=== PATIENT | female | born 1935 | race Caucasian/White ===

== ENCOUNTER 2017-06-27 08:24 | Inpatient (IN) | payer OTHER ==
[~2017-06-27] VITALS: Ht 170.2 cm; Wt 54.5 kg
[~2017-06-27 08:24] MED LIST: ALBUAER19 INH; ASPEC81 PO; BUDE0.5S INH; BUSP-8 PO; DILT1CAP PO; DOCU-94 PO; IPRASOL4 INH; LNX25 PO; PRED10TA PO; PRFINS INH; TYL325X PO; VNCS125 PO; WARF4TAB43 PO
[2017-06-27] MEDS ORDERED: SODIUM CHLORIDE 0.9% 1000ML 1,000 ML IV STA (09:05)
--- NOTE | 2017-06-27 09:07 | EMERGENCY ROOM VISIT NOTE ---
ED Visit Note First contact with patient: 08:38 I have seen and examined this patient with Sondra Tavera and generally agree with the treatment plan as discussed.
[2017-06-27] MEDS ORDERED: MoRPHine SULFATE 4 MG/ML 1 ML CARP\\VIAL IV STA (09:20)
[2017-06-27] MEDS ORDERED: ONDANSETRON INJ 2 MG/ML 2 ML VIAL IV STA (09:20)
[2017-06-27] MEDS ORDERED: DILT240C57 PO (09:32)
[2017-06-27] MEDS ORDERED: ACET-1346 PO (09:32)
[2017-06-27] MEDS ORDERED: VNTHFA/IN INH (09:32)
[2017-06-27] MEDS ORDERED: MISCCAP80 PO (09:32)
[2017-06-27] MEDS ORDERED: LNX125 PO (09:32)
--- NOTE | 2017-06-27 09:47 | DIAGNOSTIC IMAGING REPORT ---
CHEST ONE VIEW PORTABLE CLINICAL HISTORY: RUQ PAIN pain. Nausea. COMPARISON STUDY: 07/24/2014 FINDINGS: Slight increase in cardiac size. Increased impact 1 markings both lung bases. Upper lungs are clear. Mild Baseline emphysematous changes present. IMPRESSION: Minimal bibasilar atelectatic and/or developing infiltrative change. Mild emphysematous change. The above report was generated using voice recognition software. It may contain grammatical, syntax or spelling errors. Electronically signed by: Otto Laboy M.D. 06/27/2017 9:46 AM Dictated Date/Time: 06/27/2017 9:45 AM
[2017-06-27 10:00] LABS: BASO % 0.2 %; BASO ABS # 0.03 K/uL (0-0.2); EOS % 1.2 %; EOS ABS # 0.19 K/uL (0-0.5); HEMATOCRIT 42.3 % (37-47); IG# 0.04 K/uL (0.00-0.02); LYMPH % 8.3 %; LYMPH ABS # 1.36 K/uL (1.2-3.4); MEAN CELL VOLUME 89.1 fL (80-100); MEAN CORPUSCULAR HEMOGLOBIN 29.5 pg (25-34); MEAN CORPUSCULAR HGB CONC 33.1 g/dl (32-36); MEAN PLATELET VOLUME 10.2 fL (7.4-10.4); MONO ABS # 1.31 K/uL (0.11-0.59); NEUT % 82.1 %; NEUT ABS # 13.38 K/uL (1.4-6.5); PLATELET COUNT 289 K/uL (130-400); RED CELL DISTRIBUTION WIDTH CV 15.6 % (11.5-14.5); RED CELL DISTRIBUTION WIDTH SD 51.4 fL (36.4-46.3); WHITE BLOOD COUNT 16.31 K/uL (4.8-10.8)
[2017-06-27 10:02] LABS: ALBUMIN 2.8 gm/dl (3.4-5.0); ALKALINE PHOSPHATASE 72 U/L (45-117); ALT/SGPT 14 U/L (12-78); BLOOD UREA NITROGEN 18 mg/dl (7-18); CALCIUM 7.8 mg/dl (8.5-10.1); CARBON DIOXIDE 25 mmol/L (21-32); CREATININE 0.89 mg/dl (0.60-1.20); GLUCOSE 81 mg/dl (70-99); LIPASE 133 U/L (73-393); SODIUM 140 mmol/L (136-145); TOTAL PROTEIN 7.1 gm/dl (6.4-8.2)
[2017-06-27 10:20] LABS: POTASSIUM 4.1 mmol/L (3.5-5.1)
[2017-06-27 10:26] LABS: INR 4.5 (0.9-1.1)
[2017-06-27 10:27] LABS: PTT PATIENT 55.6 SECONDS (21.0-31.0)
--- NOTE | 2017-06-27 10:36 | DIAGNOSTIC IMAGING REPORT ---
GALLBLADDER-ABD LIMITED HISTORY: 82 years-old Female RUQ PAIN X 2 DAYS acute right upper quadrant abdominal pain for 2 days. COMPARISON: CT abdomen and pelvis 07/21/2014 TECHNIQUE: Multiple real-time sonographic images of the abdominal right upper quadrant were obtained assessing grayscale appearance and color flow FINDINGS: The imaged pancreas is unremarkable with pancreatic duct measuring the upper limits of normal, 3 mm. Common bile duct is mildly dilated, 1.0 cm. Multiple shadowing gallstones are seen within the mid gallbladder lumen and gallbladder neck which are nonmobile. There is likely associated gallbladder sludge. The gallbladder wall is also mildly thickened, 4 mm. No pericholecystic fluid. 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 No obstructing stone or lesion of the common bile duct. No intrahepatic biliary ductal dilation identified. Several hepatic cysts are redemonstrated, largest of which measures up to 8.1 cm. Several hepatic cysts are septated. The imaged right kidney is unremarkable without hydronephrosis. IMPRESSION: 1. Cholelithiasis with gallbladder wall thickening and reported right upper quadrant tenderness is noted without pericholecystic fluid. Correlate clinically to exclude acute cholecystitis. 2. Mild dilation of the common bile duct, 1.0 cm without obstructing biliary stone or lesion identified. 3. Redemonstration of multiple hepatic cysts. The above report was generated using voice recognition software. It may contain grammatical, syntax or spelling errors. Electronically signed by: Gutierrez Quintana M.D. 06/27/2017 10:34 AM Dictated Date/Time: 06/27/2017 10:31 AM
--- NOTE | 2017-06-27 10:42 | EMERGENCY ROOM VISIT NOTE ---
History First contact with patient: 08:38 Chief Complaint: ABDOMINAL PAIN Stated Complaint: GALLBLADDER PAIN Nursing Triage Summary: patient c/o right abdominal pain since sunday evening, states "we ate all kinds of fried food and it got real bad, went to [facility] and they did some tests so I could go to [facility] right away or follow up, I was feeling a little better there so I waited but at about 0300 today it got real bad again." History of Present Illness Patient is an 82-year-old female with past medical history significant for COPD and A. fib on chronic Coumadin, who presents emergency department accompanied by her for evaluation of right upper quadrant abdominal pain 2 days. Patient reports that she was diagnosed with gallstones about a year ago after having some episodic right upper quadrant pain. She was seen by general surgery and at that point was not felt to be a surgical candidate. With dietary changes her symptoms resolved until just recently. She states that on Sunday evening, 2 days ago, she had a lot of fried foods for dinner including Thai fries, onion rings and wings. That night she was awoken with sharp, stabbing right upper quadrant pain. She tried getting up and moving around, but the pain persisted. She was seen at [facility] in the Emergency Department at 0700 yesterday and underwent a thorough workup which included laboratory studies. She was treated with IV Toradol and Zofran, and given 1 g of ceftriaxone IV for a presumed cholecystitis. They did not have ultrasound capabilities, and discussed with the patient either close follow-up with her primary care provider, or transfer to a facility that could ultrasound including [facility] or [facility]. Patient reports that she was feeling better at that time, and elected to go home to follow-up with her primary care provider. Patient states that she was feeling better yesterday, and tried to eat a more bland diet, but the pain returned at 0300 this morning. She again notes a sharp right upper quadrant pain that does not radiate. She states that when she lays down and holds her side she feels better. She rates her discomfort a 2/10 presently, it is worse when she sits up or takes a deep breath. She denies feeling nauseous, she has not vomited. No diarrhea. No fever or chills. She denies any chest pain palpitations or shortness of breath. She has not documented any fevers. Review of Systems Review of systems as per HPI. All other systems reviewed were negative. 10 systems reviewed. Past Medical/Surgical History Medical Problems: (1) Atrial Fibrillation (2) Bronchitis (3) Chronic obstructive lung disease (4) Heart disease (5) Leukocytosis (6) Osteoporosis Nos (7) Pulmonary emphysema Surgical Problems: (1) History of total hip arthroplasty (2) Hysterectomy Electronic medical records are reviewed and summarized as above/below. See Problem List. Social History Smoking Status: Former Smoker Alcohol Use: none Drug Use: none Marital Status: Housing Status: lives with significant other Occupation Status: retired Current/Historical Medications Scheduled Buspirone Hcl (Buspirone Hcl), 10 MG PO BID Digoxin (Digoxin), 0.125 MG PO DAILY Diltiazem Hcl Coated Beads (Cardizem Cd), 240 MG PO DAILY Docusate Sodium (Colace), 100 MG PO DAILY Formoterol Fumarate (Perforomist), 2 ML INH BID Probiotic Product (Probiotic), 1 CAP PO DAILY Warfarin Sodium (Warfarin Sodium), 2 MG PO DAILY Scheduled PRN Acetaminophen (Acetaminophen), 650 MG PO Q4 PRN for Pain or Fever Albuterol Hfa (Ventolin Hfa), 2-4 PUFFS INH Q6H PRN for SOB/Wheezing Ipratropium-Albuterol (Duoneb), 1 TREATMENT INH Q4H PRN for SOB/Wheezing Physical Exam Vital Signs Date Time Temp Pulse Resp B/P (MAP) Pulse Ox O2 Delivery O2 Flow Rate FiO2 06/27/17 12:50 82 16 97/60 98 Room Air 06/27/17 12:13 85 06/27/17 11:41 97 Room Air 06/27/17 11:14 86 16 06/27/17 10:25 100 18 109/66 97 Room Air 06/27/17 09:49 100 20 116/65 96 Room Air 06/27/17 09:08 99 06/27/17 08:30 36.8 105 20 112/58 97 Room Air Physical Exam CONSTITUTIONAL: Patient is a pleasant, well-appearing 82-year-old female who is awake and alert and in no acute distress. EYES: Pupils equal, round, reactive to light and accommodation. EOMs intact without nystagmus. Sclera are anicteric. ENT: Tympanic membranes intact, with normal landmarks. External canals are clear. Oral and nasopharynx are clear. Mucous membranes are moist, no lesions , tongue and gums appear normal. CARDIOVASCULAR: Irregular rate and rhythm. No JVD. Peripheral pulses easily palpable. RESPIRATORY: Breath sounds equal and clear to auscultation without wheezes, rales, or rhonchi heard. Full and equal chest expansion without accessory muscle use or retractions. ABDOMEN: Bowel sounds are present. Abdomen is soft, nondistended, markedly tender in the right upper quadrant without guarding. Positive Parham sign. INTEGUMENTARY: No lesions or rash, normal skin turgor. LYMPH: No lymphadenopathy. Medical Decision & Procedures ER Provider Diagnostic Interpretation: CHEST ONE VIEW PORTABLE CLINICAL HISTORY: RUQ PAIN pain. Nausea. COMPARISON STUDY: 07/24/2014 FINDINGS: Slight increase in cardiac size. Increased impact 1 markings both lung bases. Upper lungs are clear. Mild Baseline emphysematous changes present. IMPRESSION: Minimal bibasilar atelectatic and/or developing infiltrative change. Mild emphysematous change. GALLBLADDER-ABD LIMITED HISTORY: 82 years-old Female RUQ PAIN X 2 DAYS acute right upper quadrant abdominal pain for 2 days. COMPARISON: CT abdomen and pelvis 07/21/2014 TECHNIQUE: Multiple real-time sonographic images of the abdominal right upper quadrant were obtained assessing grayscale appearance and color flow FINDINGS: The imaged pancreas is unremarkable with pancreatic duct measuring the upper limits of normal, 3 mm. Common bile duct is mildly dilated, 1.0 cm. Multiple shadowing gallstones are seen within the mid gallbladder lumen and gallbladder neck which are nonmobile. There is likely associated gallbladder sludge. The gallbladder wall is also mildly thickened, 4 mm. No pericholecystic fluid. 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 No obstructing stone or lesion of the common bile duct. No intrahepatic biliary ductal dilation identified. Several hepatic cysts are redemonstrated, largest of which measures up to 8.1 cm. Several hepatic cysts are septated. The imaged right kidney is unremarkable without hydronephrosis. IMPRESSION: 1. Cholelithiasis with gallbladder wall thickening and reported right upper quadrant tenderness is noted without pericholecystic fluid. Correlate clinically to exclude acute cholecystitis. 2. Mild dilation of the common bile duct, 1.0 cm without obstructing biliary stone or lesion identified. 3. Redemonstration of multiple hepatic cysts. Laboratory Results 5/9/18 09:33 Red Blood Count 4.75, Mean Corpuscular Volume 89.1, Mean Corpuscular Hemoglobin 29.5, Mean Corpuscular Hemoglobin Concent 33.1, Mean Platelet Volume 10.2, Neutrophils (%) (Auto) 82.1, Lymphocytes (%) (Auto) 8.3, Monocytes (%) (Auto) 8.0, Eosinophils (%) (Auto) 1.2, Basophils (%) (Auto) 0.2, Neutrophils # (Auto) 13.38, Lymphocytes # (Auto) 1.36, Monocytes # (Auto) 1.31, Eosinophils # (Auto) 0.19, Basophils # (Auto) 0.03 06/27/17 09:00 06/27/17 09:47 Test 06/27/17 09:00 06/27/17 09:33 06/27/17 09:47 Anion Gap 4.0 mmol/L (3-11) Est Creatinine Clear Calc Drug Dose 42.7 ml/min Estimated GFR () 70.4 Estimated GFR (Non- 60.8 BUN/Creatinine Ratio 20.3 (10-20) Calcium Level 7.8 mg/dl (8.5-10.1) Total Bilirubin 0.5 mg/dl (0.2-1) Alanine Aminotransferase (ALT/SGPT) 14 U/L (12-78) Alkaline Phosphatase 72 U/L (45-117) Creatine Kinase MB 1.0 ng/ml (0.5-3.6) Creatine Kinase MB Ratio (0-3.0) Troponin I < 0.015 ng/ml (0-0.045) Total Protein 7.1 gm/dl (6.4-8.2) Albumin 2.8 gm/dl (3.4-5.0) Globulin 4.3 gm/dl (2.5-4.0) Albumin/Globulin Ratio 0.7 (0.9-2) Amylase Level 37 U/L (25-115) Lipase 133 U/L (73-393) White Blood Count 16.31 K/uL (4.8-10.8) Red Blood Count 4.75 M/uL (4.2-5.4) Hemoglobin 14.0 g/dL (12.0-16.0) Hematocrit 42.3 % (37-47) Mean Corpuscular Volume 89.1 fL (80-100) Mean Corpuscular Hemoglobin 29.5 pg (25-34) Mean Corpuscular Hemoglobin Concent 33.1 g/dl (32-36) Platelet Count 289 K/uL (130-400) Mean Platelet Volume 10.2 fL (7.4-10.4) Neutrophils (%) (Auto) 82.1 % Lymphocytes (%) (Auto) 8.3 % Monocytes (%) (Auto) 8.0 % Eosinophils (%) (Auto) 1.2 % Basophils (%) (Auto) 0.2 % Neutrophils # (Auto) 13.38 K/uL (1.4-6.5) Lymphocytes # (Auto) 1.36 K/uL (1.2-3.4) Monocytes # (Auto) 1.31 K/uL (0.11-0.59) Eosinophils # (Auto) 0.19 K/uL (0-0.5) Basophils # (Auto) 0.03 K/uL (0-0.2) RDW Standard Deviation 51.4 fL (36.4-46.3) RDW Coefficient of Variation 15.6 % (11.5-14.5) Immature Granulocyte % (Auto) 0.2 % Immature Granulocyte # (Auto) 0.04 K/uL (0.00-0.02) Prothrombin Time 45.9 SECONDS (9.0-12.0) Prothromb Time International Ratio 4.5 (0.9-1.1) Activated Partial Thromboplast Time 55.6 SECONDS (21.0-31.0) Partial Thromboplastin Ratio 2.1 Digoxin Level 0.9 ng/ml (0.8-2.0) Aspartate Amino Transf (AST/SGOT) 13 U/L (15-37) Total Creatine Kinase 63 U/L (26-192) Medications Administered Medications (Trade) Dose Ordered Sig/Elijah Route Start Time Stop Time Status Last Admin Dose Admin Sodium Chloride 1,000 ml @ 250 mls/hr Q4H STAT IV 06/27/17 09:05 06/27/17 13:04 06/27/17 09:46 250 MLS/HR Ondansetron HCl (Zofran Inj) 4 mg NOW STAT IV 06/27/17 09:20 06/27/17 09:21 DC 06/27/17 09:44 4 MG Morphine Sulfate (MoRPHine SULFATE INJ) 4 mg NOW STAT IV 06/27/17 09:20 06/27/17 09:21 DC 06/27/17 09:46 4 MG Phytonadione 2.5 mg/Sodium Chloride 50.25 ml @ 100.5 mls/ hr ONE ONCE IV 06/27/17 12:40 06/27/17 13:09 06/27/17 12:50 100.5 MLS/HR ECG Per My Interpretation Indication: abdominal pain Rate (beats per minute): 102 Rhythm: atrial fibrillation Findings: no acute ischemic change, no ectopy Change: no significant change ED Course The patient was seen and assessed as above. Her old records were reviewed. IV lock was initiated and laboratory studies were collected. The patient was made n.p.o., and was hydrated with normal saline solution. She was medicated with morphine 4 mg IV and Zofran 4 mg IV for discomfort prior to ultrasound. Laboratory studies were collected including CBC with differential, PT/INR, CMP, amylase, lipase and cardiac enzymes. Portable chest x-ray and EKG were obtained and are as noted above. Ultrasound of the right upper quadrant was performed. The patient did have a copy of her laboratory studies from [facility] from yesterday which are on the chart and were reviewed. History and presentation were reviewed with attending physician who also independently evaluated the patient. Patient's laboratory studies today note a leukocytosis of 16,300, with left shift. H&H is normal. Platelet count is within normal limits. INR is supratherapeutic at 4.5. Electrolytes are unremarkable. Renal function is normal. Transaminases and pancreatic enzymes are not elevated. Cardiac markers are not indicative of acute ischemia. Patient did not provide a urine sample while in the emergency department. Gallbladder ultrasound noted cholelithiasis with gallbladder wall thickening and positive sonographic Parham sign. There is no pericholecystic fluid noted. Mild dilatation of the common bile duct at 1 cm without obstructing biliary stone or lesion was identified. All laboratory and diagnostic imaging studies were reviewed with the patient and her and discussed with attending physician. I did review the patient with general surgery staff on-call, Ale Lerner PA-C, who asked that the admit the patient to the [facility] service due to the elevated INR and other comorbidities for reversal of the Coumadin and medical clearance. I did discuss the patient with Dr. Castellanos, who evaluated the patient in the emergency department. Patient was admitted to the [facility] service pending surgical evaluation. The patient remained stable and comfortable while in the emergency department. She did not require any additional medications for pain or nausea. Differential diagnoses entertained included acute cholecystitis, cholelithiasis , biliary colic, ascending cholangitis, pancreatitis, bowel obstruction, perforation, mass or malignancy, among others. Medical Decision See ED Course. Medication Reconcilliation Current Medication List: was personally reviewed by me Blood Pressure Screening Patient's blood pressure: Normal blood pressure Blood pressure disposition: Did not require urgent referral Impression Primary Impression: Acute cholecystitis Additional Impression: Supratherapeutic INR Departure Information Dispostion Admitted as an inpatient Referrals Durga Gandhi M.D.(NIRAJ) (PCP) Patient Instructions My [facility] Problem Qualifiers
[2017-06-27 11:41] VITALS: O2SAT 97; Ht 170.2 cm; Wt 54.5 kg
[2017-06-27] MEDS ORDERED: PIPERACILL/TAZOBAC CONSULT ACTIVE PRN (12:15)
[2017-06-27] MEDS ORDERED: ONDANSETRON INJ 2 MG/ML 2 ML VIAL IV PRN (12:15)
[2017-06-27] MEDS ORDERED: NITROGLYCERIN 0.4 MG SL PER TAB CHARGE SL PRN (12:15)
[2017-06-27] MEDS ORDERED: PHYTONADIONE INJ 2.5 MG in SODIUM CHLORIDE 0.9% 50ML 50 ML IV ONE (12:40)
[2017-06-27] MEDS ORDERED: PIPERACILL/TAZOBAC IV 3.375 GM in D5W 100 ML IV ONE (12:45)
--- NOTE | 2017-06-27 13:33 | History and Physical ---
History & Physical Date & Time of Service: June 27, 2017 at 13:31 Chief Complaint: Gallbladder Pain Primary Care Physician: Durga Gandhi M.D.(NIRAJ) History of Present Illness Source: patient This is a 82-year-old female with complex past medical history of severe emphysema, chronic A. fib on Coumadin, valvular heart disease with moderate aortic stenosis, moderate mitral regurgitation, mild mitral stenosis Patient presents today with complaint of right upper quadrant pain Started last night, associated with nausea no vomiting No fever or chills Lab work shows leukocytosis of white count 16 Patient is on Coumadin INR more than 4 Gallbladder ultrasound shows cholelithiasis with gallbladder wall thickening without pericholecystic fluid Patient admitted to telemetry Surgery consult requested Past Medical/Surgical History Medical Problems: (1) Atrial Fibrillation (2) Bronchitis (3) Chronic obstructive lung disease (4) Heart disease (5) Leukocytosis (6) Osteoporosis Nos (7) Pulmonary emphysema Surgical Problems: (1) History of total hip arthroplasty (2) Hysterectomy Social History Smoking Status: Former Smoker Drug Use: none Marital Status: Housing status: lives with family Occupational Status: retired Immunizations History of Influenza Vaccine: Yes Influenza Vaccine Date: Nov 05, 2008 History of Tetanus Vaccine?: No History of Pneumococcal: Yes History of Hepatitis B Vaccine: No Multi-Drug Resistant Organisms History of MDRO: No Allergies Coded Allergies: No Known Allergies (Verified , 06/27/17) Home Medications Scheduled Buspirone Hcl (Buspirone Hcl), 10 MG PO BID Digoxin (Digoxin), 0.125 MG PO DAILY Diltiazem Hcl Coated Beads (Cardizem Cd), 240 MG PO DAILY Docusate Sodium (Colace), 100 MG PO DAILY Formoterol Fumarate (Perforomist), 2 ML INH BID Probiotic Product (Probiotic), 1 CAP PO DAILY Warfarin Sodium (Warfarin Sodium), 2 MG PO DAILY Scheduled PRN Acetaminophen (Acetaminophen), 650 MG PO Q4 PRN for Pain or Fever Albuterol Hfa (Ventolin Hfa), 2-4 PUFFS INH Q6H PRN for SOB/Wheezing Ipratropium-Albuterol (Duoneb), 1 TREATMENT INH Q4H PRN for SOB/Wheezing Review of Systems Constitutional: + weakness, + fatigue Respiratory: No cough, No sputum, No wheezing, No shortness of breath, No dyspnea on exertion, No dyspnea at rest, No hemoptysis, No problem reported Cardiovascular: No chest pain, No orthopnea, No PND, No edema, No claudication , No palpitations, No problem reported Abdomen: + pain (Right upper quadrant pain), + nausea, + vomiting, + diarrhea ( One episode of diarrhea) Musculoskeletal: No joint pain, No muscle pain, No swelling, No calf pain, No problem reported Neurologic: No memory loss, No paralysis, No weakness, No numbness/tingling, No vertigo, No balance problems, No problem reported Physical Exam Vital Signs Date Time Temp Pulse Resp B/P (MAP) Pulse Ox O2 Delivery O2 Flow Rate FiO2 06/27/17 12:50 82 16 97/60 98 Room Air 06/27/17 12:13 85 06/27/17 11:41 97 Room Air 06/27/17 11:14 86 16 06/27/17 10:25 100 18 109/66 97 Room Air 06/27/17 09:49 100 20 116/65 96 Room Air 06/27/17 09:08 99 06/27/17 08:30 36.8 105 20 112/58 97 Room Air General Appearance: no apparent distress Head: normocephalic, atraumatic Eyes: normal inspection, PERRL, EOMI, sclerae normal Neck: thyroid normal, no JVD, no carotid bruits, trachea midline Respiratory/Chest: chest non-tender, lungs clear, normal breath sounds, no respiratory distress Cardiovascular: + irregularly irregular Abdomen/GI: soft, + tenderness (Right upper quadrant tenderness) Extremities/Musculoskelatal: no calf tenderness, normal capillary refill, no pedal edema Neurologic/Psych: no motor/sensory deficits, alert, normal reflexes, oriented x 3 Diagnostics Laboratory Results Results Past 24 Hours Test 06/27/17 08:40 06/27/17 09:00 06/27/17 09:33 06/27/17 09:47 Range/Units Creatine Kinase MB Ratio 0-3.0 Sodium Level 140 136-145 mmol/L Potassium Level 4.1 3.5-5.1 mmol/L Chloride Level 111 98-107 mmol/L Carbon Dioxide Level 25 21-32 mmol/L Anion Gap 4.0 3-11 mmol/L Blood Urea Nitrogen 18 7-18 mg/dl Creatinine 0.89 0.60-1.20 mg/dl Est Creatinine Clear Calc Drug Dose 42.7 ml/min Estimated GFR () 70.4 Estimated GFR (Non- 60.8 BUN/Creatinine Ratio 20.3 10-20 Random Glucose 81 70-99 mg/dl Calcium Level 7.8 8.5-10.1 mg/dl Total Bilirubin 0.5 0.2-1 mg/dl Aspartate Amino Transf (AST/SGOT) 13 15-37 U/L Alanine Aminotransferase (ALT/SGPT) 14 12-78 U/L Alkaline Phosphatase 72 45-117 U/L Total Creatine Kinase 63 26-192 U/L Creatine Kinase MB 1.0 0.5-3.6 ng/ml Troponin I < 0.015 0-0.045 ng/ml Total Protein 7.1 6.4-8.2 gm/dl Albumin 2.8 3.4-5.0 gm/dl Globulin 4.3 2.5-4.0 gm/dl Albumin/Globulin Ratio 0.7 0.9-2 Amylase Level 37 25-115 U/L Lipase 133 73-393 U/L White Blood Count 16.31 4.8-10.8 K/uL Red Blood Count 4.75 4.2-5.4 M/uL Hemoglobin 14.0 12.0-16.0 g/dL Hematocrit 42.3 37-47 % Mean Corpuscular Volume 89.1 80-100 fL Mean Corpuscular Hemoglobin 29.5 25-34 pg Mean Corpuscular Hemoglobin Concent 33.1 32-36 g/dl Platelet Count 289 130-400 K/uL Mean Platelet Volume 10.2 7.4-10.4 fL Neutrophils (%) (Auto) 82.1 % Lymphocytes (%) (Auto) 8.3 % Monocytes (%) (Auto) 8.0 % Eosinophils (%) (Auto) 1.2 % Basophils (%) (Auto) 0.2 % Neutrophils # (Auto) 13.38 1.4-6.5 K/uL Lymphocytes # (Auto) 1.36 1.2-3.4 K/uL Monocytes # (Auto) 1.31 0.11-0.59 K/uL Eosinophils # (Auto) 0.19 0-0.5 K/uL Basophils # (Auto) 0.03 0-0.2 K/uL RDW Standard Deviation 51.4 36.4-46.3 fL RDW Coefficient of Variation 15.6 11.5-14.5 % Immature Granulocyte % (Auto) 0.2 % Immature Granulocyte # (Auto) 0.04 0.00-0.02 K/uL Prothrombin Time 45.9 9.0-12.0 SECONDS Prothromb Time International Ratio 4.5 0.9-1.1 Activated Partial Thromboplast Time 55.6 21.0-31.0 SECONDS Partial Thromboplastin Ratio 2.1 Digoxin Level 0.9 0.8-2.0 ng/ml Microbiology Results 06/27/17 Blood Culture, Received Pending 06/27/17 Blood Culture, Received Pending Diagnostic Radiology GALL BLADDER ULTRASOUND : IMPRESSION: 1. Cholelithiasis with gallbladder wall thickening and reported right upper quadrant tenderness is noted without pericholecystic fluid. Correlate clinically to exclude acute cholecystitis. 2. Mild dilation of the common bile duct, 1.0 cm without obstructing biliary stone or lesion identified. 3. Re demonstration of multiple hepatic cysts. EKG Atrial fibrillation with rapid ventricular response Abnormal ECG When compared with ECG of 12-AUG-2012 20:18, Nonspecific T wave abnormality, improved in Inferior leads Impression Assessment and Plan ACUTE CHOLECYSTITIS Presents with right upper quadrant pain, gallbladder ultrasound suggestive of acute cholecystitis Leukocytosis of 16 Order for blood culture Empiric antibiotic with IV Zosyn Surgery consult requested Patient will need laparoscopic cholecystectomy Due to underlying multiple cardiac/pulmonary comorbidities patient is a high cardiac risk-advanced COPD/valvular heart disease/A. fib VALVULAR HEART DISEASE Echo on October 19, 2016 showed contrast concentric left ventricle hypertrophy, qualitative LV function more than 70% severe left atrial enlargement and present Moderate aortic valve stenosis , mild aortic valve regurgitation There is severe mitral annular calcification ,mild mitral regurgitation is present There is no evidence of pulmonary hypertension Cardiac stress test on February 2017: Negative for stress-induced ischemia Repeat echo ordered Cardiology consult requested for preop evaluation of cardiac risk stratification Case discussed with on-call cardiology ADVANCED COPD : Follows with pulmonology at [facility] Recent pulmonology note on 04/10/2017 shows: Severe emphysema with moderate airflow obstruction: History of heavy smoking quit in 2014 Severe smoking related COPD with history of frequent exacerbation/GOLD class D History of hypercapnic respiratory failure with Pseudomonas pneumonitis requiring 24 hour ventilatory support on 07/10/2014 ([facility]) No audible wheeze noted Patient will be continued with as needed neb treatment Outpatient inhalers Spiriva, albuterol/steroid inhalers will be continued Patient remains high risk for postop pulmonary and cardiac complications; decompensation of CHF, tachyarrhythmia, acute respiratory failure CHRONIC AFIB : Remains rate controlled On digoxin and calcium channel leonor Not on beta-leonor secondary to underlying severe COPD On chronic anticoagulation on Coumadin Anticoagulation is kept on hold for expected surgical procedure COAGULOPATHY : INR elevated more than 4 Given vitamin K Repeat INR 2.4 Continue to hold Coumadin for surgical procedure/laparoscopic cholecystectomy LEUKOCYTOSIS : No evidence of sepsis Due to acute cholecystitis Blood culture ordered Empiric antibiotic with IV Zosyn Follow daily labs FULL CODE DVT PROPHYLAXIS INR elevated DISPOSITION : Expected to be discharged home when medically stable Will need PT OT evaluation prior to this Social service consult for discharge planning Level of Care Telemetry Advanced Directives Existing Living Will: No Existing Power of Flagger: No Resuscitation Status FULL RESUSCITATION VTE Prophylaxis Risk Level: Moderate
[2017-06-27] MEDS ORDERED: METOPROLOL TARTRATE 1 MG/ML VIAL IV PRN (13:45)
[2017-06-27] MEDS ORDERED: ALBUT/IPRATROP 3MG/0.5MG NEB 3 ML VIAL INH PRN (13:45)
[2017-06-27] MEDS ORDERED: ALBUTEROL HFA 8 GM INHALER INH PRN ×2 (13:45→16:45)
[2017-06-27 14:45] VITALS: BP 106/56; PULSE 87; TEMP 36.9; O2SAT 94
[2017-06-27] MEDS ORDERED: LACTATED RINGER'S 1000ML 1,000 ML IV SCH (15:00)
[2017-06-27 16:12] LABS: INR 2.6 (0.9-1.1)
[2017-06-27] MEDS ORDERED: MoRPHine SULFATE 4 MG/ML 1 ML CARP\\VIAL IV PRN (16:30)
[2017-06-27] MEDS ORDERED: MoRPHine SULFATE 2 MG/ML CARP IV PRN (16:30)
[2017-06-27 16:41] VITALS: BP 105/54; PULSE 84; TEMP 36.7; O2SAT 92
[2017-06-27] MEDS ORDERED: LEVALBUTEROL/IPRATROPIUM NEB INH PRN (16:45)
[2017-06-27] MEDS ORDERED: IPRATROPIUM BROMIDE NEB SOLN 0.02% 2.5 ML VIAL INH PRN (17:00)
[2017-06-27] MEDS ORDERED: LEVALBUTEROL 1.25MG/0.5ML NEB INH PRN (17:00)
--- NOTE | 2017-06-27 18:11 | Surgery Consultation ---
Consultation Date of Consultation: June 27, 2017. Attending Physician: Antoine Lamb MD Reason for Consultation: Cholelithiasis, cholecystitis History of Present Illness Regla is a pleasant 82-year-old female who presented to the emergency room complaint of right abdominal pain since Sunday evening. Patient reports that she was diagnosed gallstones about a year ago after having intermittent right upper quadrant abdominal pain. She was seen by general surgery but felt she was not a surgical candidate at that time. She has not had troubles with the right upper quadrant pain until 2 days ago. She had a lot of fried food including Scottish fries, onion rings, and wings. She was seen at [facility] in the emergency department and underwent a workup including laboratory studies she was treated with IV pain medications Zofran and IV antibiotics however they were night unable to do an ultrasound. She is feeling better at the time and was discharged home. She states that she was feeling better but then the pain returned at 3:00 this morning. She again notes sharp right upper quadrant pain does not radiate anywhere else. She denies of any fevers chills nausea vomiting diarrhea constipation blood in the stools black tarry stools acholic stools. She denies of any chest pain, palpitations, shortness of breath. ER workup included labs which showed a leukocytosis of 16.31 LFTs within normal limits total bilirubin within normal limits. Gallbladder ultrasound showed cholelithiasis with gallbladder wall thickening and reported right upper quadrant tenderness without pericholecystic fluid mild dilation of the common bile duct at 1.0 cm without obstructing biliary stone or lesion identified. Past Medical/Surgical History Medical Problems: (1) Acute cholecystitis Status: Acute (2) Atrial Fibrillation Status: Chronic (3) Chronic obstructive lung disease Status: Chronic (4) Heart disease Status: Chronic (5) Osteoporosis Nos Status: Chronic (6) Pulmonary emphysema Status: Chronic (7) Supratherapeutic INR Status: Acute Past Surgical HIstory: Hysterectomy Social History Smoking Status: Former Smoker Drug Use: none Marital Status: Housing Status: lives with significant other Occupation Status: retired Allergies Coded Allergies: No Known Allergies (Verified , 06/27/17) Home Medications Scheduled Buspirone Hcl (Buspirone Hcl), 10 MG PO BID Digoxin (Digoxin), 0.125 MG PO DAILY Diltiazem Hcl Coated Beads (Cardizem Cd), 240 MG PO DAILY Docusate Sodium (Colace), 100 MG PO DAILY Formoterol Fumarate (Perforomist), 2 ML INH BID Probiotic Product (Probiotic), 1 CAP PO DAILY Warfarin Sodium (Warfarin Sodium), 2 MG PO DAILY Scheduled PRN Acetaminophen (Acetaminophen), 650 MG PO Q4 PRN for Pain or Fever Albuterol Hfa (Ventolin Hfa), 2-4 PUFFS INH Q6H PRN for SOB/Wheezing Ipratropium-Albuterol (Duoneb), 1 TREATMENT INH Q4H PRN for SOB/Wheezing Current Inpatient Medications Current Inpatient Medications Medications (Trade) Dose Ordered Sig/Elijah Route Start Time Stop Time Status Last Admin Dose Admin Piperacillin Sod/ Tazobactam Sod 3.375 gm/Dextrose 115 ml @ 28.75 mls/ hr Q8H IV 06/27/17 18:00 07/07/17 17:59 Miscellaneous Information (Consult) 1 ea UD PRN N/A 06/27/17 12:15 07/27/17 12:14 Ondansetron HCl (Zofran Inj) 4 mg Q6H PRN IV 06/27/17 12:15 07/27/17 12:14 Nitroglycerin (Nitrostat Tab) 0.4 mg UD PRN SL 06/27/17 12:15 07/27/17 12:14 Formoterol Fumarate (Perforomist 20MCG/2ML Neb Soln) 20 mcg BID INH 06/27/17 21:00 07/27/17 20:59 Metoprolol Tartrate (Lopressor Iv) 5 mg Q6 PRN IV 06/27/17 13:45 07/27/17 13:44 Morphine Sulfate (MoRPHine SULFATE INJ) FOR PAIN, 1-2MG 1MG FOR P... Q4 PRN IV 06/27/17 16:30 07/11/17 16:29 Digoxin (Lanoxin Tab) 0.125 mg DAILY@1600 PO 06/28/17 16:00 07/28/17 15:59 Diltiazem HCl (Cardizem Cd Cap) 240 mg DAILY PO 06/28/17 09:00 07/28/17 08:59 Docusate Sodium (coLACE CAP) 100 mg DAILY PO 06/28/17 09:00 07/28/17 08:59 Albuterol (Ventolin Hfa Inhaler) 2 puffs Q4 PRN INH 06/27/17 16:45 07/27/17 13:44 Ipratropium [place] (Atrovent 0.02% 0.5MG/2.5ML Neb) 0.5 mg Q4H PRN INH 06/27/17 17:00 07/27/17 16:59 Levalbuterol (Xopenex 1.25MG/ 0.5ML Neb) 1.25 mg Q4H PRN INH 06/27/17 17:00 07/27/17 16:59 Review of Systems Constitutional: No fever, No chills, No sweats Respiratory: No cough, No sputum, No shortness of breath Cardiovascular: No chest pain Abdomen: + pain, + nausea, No vomiting, No diarrhea, No constipation, No GI bleeding Genitourinary - Female: No dysuria, No hematuria Integumentary: No rash Physical Exam Date Time Temp Pulse Resp B/P (MAP) Pulse Ox O2 Delivery O2 Flow Rate FiO2 06/27/17 16:41 36.7 84 20 105/54 (71) 92 Room Air 06/27/17 16:00 Room Air 06/27/17 14:45 36.9 87 22 106/56 (73) 94 Room Air 06/27/17 13:45 75 16 96/58 96 Room Air 06/27/17 13:30 82 16 99/66 06/27/17 13:16 36.5 78 16 89/58 98 Room Air 06/27/17 12:50 36.6 82 16 97/60 98 Room Air 06/27/17 12:13 85 06/27/17 11:41 97 Room Air 06/27/17 11:14 86 16 06/27/17 10:25 100 18 109/66 97 Room Air 06/27/17 09:49 100 20 116/65 96 Room Air 06/27/17 09:08 99 06/27/17 08:30 36.8 105 20 112/58 97 Room Air General Appearance: WD/WN, no apparent distress Head: normocephalic, atraumatic Eyes: sclerae normal ENT: hearing grossly normal Neck: trachea midline Respiratory/Chest: no respiratory distress, no accessory muscle use Abdomen/GI: soft, no organomegaly, no pulsatile mass, + tenderness (RUQ on mild palpation, positive plunkett's sign with guarding) Back: normal inspection Extremities/Musculoskelatal: normal inspection Neurologic/Psych: alert, normal mood/affect, oriented x 3 Skin: normal color, warm/dry, no rash Laboratory Results Last 24 Hours Test 06/27/17 08:40 06/27/17 09:00 06/27/17 09:33 06/27/17 09:47 Creatine Kinase MB Ratio Sodium Level 140 mmol/L Potassium Level mmol/L 4.1 mmol/L Chloride Level 111 mmol/L Carbon Dioxide Level 25 mmol/L Anion Gap 4.0 mmol/L Blood Urea Nitrogen 18 mg/dl Creatinine 0.89 mg/dl Est Creatinine Clear Calc Drug Dose 42.7 ml/min Estimated GFR () 70.4 Estimated GFR (Non- 60.8 BUN/Creatinine Ratio 20.3 Random Glucose 81 mg/dl Calcium Level 7.8 mg/dl Total Bilirubin 0.5 mg/dl Aspartate Amino Transf (AST/SGOT) U/L 13 U/L Alanine Aminotransferase (ALT/SGPT) 14 U/L Alkaline Phosphatase 72 U/L Total Creatine Kinase U/L 63 U/L Creatine Kinase MB 1.0 ng/ml Troponin I < 0.015 ng/ml Total Protein 7.1 gm/dl Albumin 2.8 gm/dl Globulin 4.3 gm/dl Albumin/Globulin Ratio 0.7 Amylase Level 37 U/L Lipase 133 U/L White Blood Count 16.31 K/uL Red Blood Count 4.75 M/uL Hemoglobin 14.0 g/dL Hematocrit 42.3 % Mean Corpuscular Volume 89.1 fL Mean Corpuscular Hemoglobin 29.5 pg Mean Corpuscular Hemoglobin Concent 33.1 g/dl Platelet Count 289 K/uL Mean Platelet Volume 10.2 fL Neutrophils (%) (Auto) 82.1 % Lymphocytes (%) (Auto) 8.3 % Monocytes (%) (Auto) 8.0 % Eosinophils (%) (Auto) 1.2 % Basophils (%) (Auto) 0.2 % Neutrophils # (Auto) 13.38 K/uL Lymphocytes # (Auto) 1.36 K/uL Monocytes # (Auto) 1.31 K/uL Eosinophils # (Auto) 0.19 K/uL Basophils # (Auto) 0.03 K/uL RDW Standard Deviation 51.4 fL RDW Coefficient of Variation 15.6 % Immature Granulocyte % (Auto) 0.2 % Immature Granulocyte # (Auto) 0.04 K/uL Prothrombin Time 45.9 SECONDS Prothromb Time International Ratio 4.5 Activated Partial Thromboplast Time 55.6 SECONDS Partial Thromboplastin Ratio 2.1 Digoxin Level 0.9 ng/ml Test 06/27/17 15:00 06/27/17 15:43 Urine Color YELLOW Urine Appearance CLEAR Urine pH 5.0 Urine Specific [place] 1.018 Urine Protein NEG Urine Glucose (UA) NEG Urine Ketones NEG Urine Occult Blood NEG Urine Nitrite NEG Urine Bilirubin NEG Urine Urobilinogen NEG Urine Leukocyte Esterase SMALL Urine WBC (Auto) 1-5 /hpf Urine RBC (Auto) 0-4 /hpf Urine Hyaline Casts (Auto) 1-5 /lpf Urine Epithelial Cells (Auto) 10-20 /lpf Urine Bacteria (Auto) NEG Prothrombin Time 26.3 SECONDS Prothromb Time International Ratio 2.6 Assessment & Plan 82-year-old female presenting to the emergency department with a 2 day history of right upper quadrant pain following ingestion of fatty foods. History of cholelithiasis with intermittent right upper quadrant pain years ago. Abdominal ultrasound showing gallstones with gallbladder wall thickening however no pericholecystic fluid. Common bile duct dilated at 1.0 cm without any obstruction. Labs show leukocytosis of 16,000. Total bilirubin and LFTs within normal limits. Supratherapeutic INR-was given 2.5 mg of vitamin K in the emergency room. Plan: Given patient's symptoms, leukocytosis, ultrasound findings recommend laparoscopic cholecystectomy. Patient was informed of procedure and risks including bleeding, infection, bile duct injury, bile leak, injury to surrounding organs tissues, blood clots, cardiopulmonary complications, stroke, IN even . Patient understood and informed consent obtained by Dr. Weathers. Cardiology consultation for preop clearance. Patient may have clear liquids for dinner n.p.o. after midnight Continue IV fluids, IV antibiotics, IV pain management as needed, IV Zofran as needed Continue medical management Dr. Weathers has seen and examined patient and agrees with above.
[2017-06-27] MEDS: PIPERACILL/TAZOBAC IV 3.375 GM in DEXTROSE 5% 100ML 100 ML IV SCH (18:51)
[2017-06-27 19:03] VITALS: PULSE 82; O2SAT 92
[2017-06-27] MEDS: FORMOTEROL FUMA NEBULIZER SOLN 20 MCG/2 ML VIAL INH SCH (19:03)
[2017-06-27 20:00] VITALS: BP 122/55; PULSE 85; TEMP 36.8; O2SAT 95
[2017-06-28] VITALS (12 sets, daily range): BP systolic 96–111; BP diastolic 52–73; PULSE 75–105; TEMP 36.4–36.7; O2SAT 92–97
[2017-06-28] MEDS: PIPERACILL/TAZOBAC IV 3.375 GM in DEXTROSE 5% 100ML 100 ML IV SCH ×3 (01:45→18:41)
[2017-06-28 04:58] LABS: HEMATOCRIT 39.8 % (37-47); HEMOGLOBIN 13.3 g/dL (12.0-16.0); MEAN CELL VOLUME 89.6 fL (80-100); MEAN CORPUSCULAR HGB CONC 33.4 g/dl (32-36); MEAN PLATELET VOLUME 10.3 fL (7.4-10.4); PLATELET COUNT 269 K/uL (130-400); RED CELL DISTRIBUTION WIDTH CV 15.5 % (11.5-14.5); RED CELL DISTRIBUTION WIDTH SD 51.8 fL (36.4-46.3); WHITE BLOOD COUNT 10.88 K/uL (4.8-10.8)
[2017-06-28 05:06] LABS: INR 1.3 (0.9-1.1)
[2017-06-28 05:17] LABS: ALBUMIN 2.6 gm/dl (3.4-5.0); CALCIUM 7.8 mg/dl (8.5-10.1); CREATININE 0.84 mg/dl (0.60-1.20); POTASSIUM 3.6 mmol/L (3.5-5.1)
[2017-06-28] MEDS ORDERED: CEFAZOLIN 2000MG IV PUSH 15 ML IV SCH (06:00)
[2017-06-28] MEDS: FORMOTEROL FUMA NEBULIZER SOLN 20 MCG/2 ML VIAL INH SCH ×2 (07:05→19:16)
[2017-06-28] MEDS: DOCUSATE SODIUM 100 MG CAP PO SCH (07:59)
[2017-06-28] MEDS: DILTIAZEM HCL 240 MG CAPCR PO SCH (07:59)
--- NOTE | 2017-06-28 08:56 | ECHOCARDIOGRAM REPORT ---
*NOTICE TO RECEIVING CONSTITUTION PARTY AGENCY This information is strictly Confidential and protected under [place] law. [place] law prohibits you from making any further disclosure of this information unless further disclosure is expressly permitted by the written consent of the person to whom it pertains or is authorized by law. A general authorization for the release of medical or other information is not sufficient for this purpose. Hospital accepts no responsibility if the information is made available to any other person, INCLUDING THE PATIENT. Interpretation Summary * Name: CIELO ROSEN Study Date: 06/28/2017 06:19 AM BP: 108/63 mmHg * Patient Location: [id number].2E\S\E205\S\1 HR: 83 * : 1935 (M/d/yy) Gender: Female Height: 67 in * Age: 82 yrs Ethnicity: CA Weight: 118 lb * Ordering Physician: Bertha Castellanos * Referring Physician: Self, Referred * Performed By: Jennie Malloy RDCS * * Reason For Study: AFIB * BSA: 1.6 m2 * -- Conclusions -- * No significant change compared of 03/20/17. * Normal LV chamber size with moderate concentric LVH. * Normal LV systolic function, EF 60-65%. * No segmental left ventricular wall motion abnormalities are noted. * Severe left atrial enlargement denotes the presence of diastolic dysfunction. * The aortic valve is not well visualized. Severely calcified aortic valve. Mild aortic regurgitation. Mild to moderate valvular aortic stenosis. * There is severe mitral annular calcification. There is moderate mitral regurgitation. * Mild tricuspid regurgitation. * Pulmonary hypertension is present with a PASP of 44 mmHG assuming a RA pressure of 3 mmHg. Procedure Details * A complete two-dimensional transthoracic echocardiogram was performed (2D, M-mode, Doppler and color flow Doppler). Left Ventricle * The left ventricle is grossly normal size. * There is moderate concentric left ventricular hypertrophy. * Ejection Fraction = 60-65%. * Left ventricular systolic function is normal. * No segmental left ventricular wall motion abnormalities are noted. * The left ventricular wall motion is normal. Right Ventricle * The right ventricular cavity size is normal (basal dimension <4.2 cm in right ventricular apical 4-chamber view). * The right ventricular systolic function is normal as assessed by tricuspid annular plane systolic excursion (TAPSE) (normal >1.5 cm). Atria * The left atrium is severely dilated. * Right atrial size is normal. * No ASD detected; PFO is not assessed. Mitral Valve * There is severe mitral annular calcification. * There is no mitral valve stenosis. * There is moderate mitral regurgitation. Tricuspid Valve * The tricuspid valve anatomy is normal. * There is no tricuspid stenosis. * There is mild tricuspid regurgitation. Aortic Valve * The aortic valve is not well visualized. * Severely calcified aortic valve. * Mild to moderate valvular aortic stenosis. * Mild aortic regurgitation. Pulmonic Valve * The pulmonary valve is not well seen, but the Doppler examination is normal without significant regurgitation or stenosis. Great Vessels * The aortic root is normal size. Pericardium/Pleural * There is no pericardial effusion. Left Ventricular Diastolic Function * Severe left atrial enlargement denotes the presence of diastolic dysfunction. MMode 2D Measurements and Calculations IVSd 1.2 cm IVSs 1.4 cm LVIDd 4.2 cm LVIDs 2.9 cm LVPWd 1.4 cm LVPWs 1.6 cm IVS/LVPW 0.84 FS 30.0 % EDV(Teich) 76.6 ml ESV(Teich) 32.5 ml EF(Teich) 57.6 % EDV(cubed) 71.7 ml ESV(cubed) 24.6 ml EF(cubed) 65.7 % % IVS thick 16.9 % % LVPW thick 13.8 % LV mass(C)d 198.0 grams LV mass(C)dI 122.5 grams/m\S\2 LV mass(C)s 151.9 grams LV mass(C)sI 94.0 grams/m\S\2 SV(Teich) 44.1 ml SI(Teich) 27.3 ml/m\S\2 SV(cubed) 47.1 ml SI(cubed) 29.1 ml/m\S\2 Ao root diam 2.7 cm Ao root area 5.9 cm\S\2 LA dimension 4.5 cm LA/Ao 1.6 LVAd ap4 16.0 cm\S\2 LVLd ap4 6.1 cm EDV(MOD-sp4) 36.2 ml EDV(sp4-el) 35.4 ml LVAs ap4 9.0 cm\S\2 LVLs ap4 5.1 cm ESV(MOD-sp4) 13.9 ml ESV(sp4-el) 13.5 ml EF(MOD-sp4) 61.5 % EF(sp4-el) 61.9 % LVAd ap2 12.7 cm\S\2 LVLd ap2 6.1 cm EDV(MOD-sp2) 22.7 ml EDV(sp2-el) 22.3 ml LVAs ap2 7.1 cm\S\2 LVLs ap2 4.8 cm ESV(MOD-sp2) 9.4 ml ESV(sp2-el) 9.0 ml EF(MOD-sp2) 58.4 % EF(sp2-el) 59.5 % LVLd %diff 0.37 % EDV(MOD-bp) 28.6 ml LVLs %diff -6.68 % ESV(MOD-bp) 11.5 ml EF(MOD-bp) 60.0 % SV(MOD-sp4) 22.2 ml SI(MOD-sp4) 13.8 ml/m\S\2 SV(MOD-sp2) 13.3 ml SI(MOD-sp2) 8.2 ml/m\S\2 SV(MOD-bp) 17.2 ml SI(MOD-bp) 10.6 ml/m\S\2 SV(sp4-el) 21.9 ml SI(sp4-el) 13.6 ml/m\S\2 SV(sp2-el) 13.3 ml SI(sp2-el) 8.2 ml/m\S\2 Doppler Measurements and Calculations MV E max cami 177.3 cm/sec MV dec time 0.38 sec Ao V2 max 235.5 cm/sec Ao max PG 22.2 mmHg Ao max PG (full) 17.8 mmHg Ao V2 mean 159.6 cm/sec Ao mean PG 12.0 mmHg Ao mean PG (full) 10.1 mmHg Ao V2 VTI 39.9 cm AI max cami 453.0 cm/sec AI max PG 82.1 mmHg AI dec slope 232.9 cm/sec\S\2 AI P1/2t 569.5 msec LV V1 max PG 4.4 mmHg LV V1 mean PG 1.9 mmHg LV V1 max 105.2 cm/sec LV V1 mean 63.1 cm/sec LV V1 VTI 15.8 cm SV(Ao) 233.5 ml SI(Ao) 144.5 ml/m\S\2 TR max cami 321.2 cm/sec
--- NOTE | 2017-06-28 09:02 | Progress Note ---
Internal Med Progress Note Date of Service: June 28, 2017. Provider Documentation: SUBJECTIVE: Seen and examined at bedside States having intermittent abdominal pain, currently no pain Denies nausea, vomiting, chest pain, SOB Chronic dizziness No other complaints Planned for Lap José Miguel today OBJECTIVE: Vital Signs-as noted below Physical Exam: General Appearance:Thin, no apparent distress Head: normocephalic, Atraumatic Eyes: normal inspection, EOMI, PERRL Neck: supple, Trachea midline Respiratory/Chest: Decreased breath sounds, CTA Cardiovascular: Irregularly Irregular, No murmur Abdomen/GI:Soft, Mild RUQ tender, Bowel sounds present Extremities/Musculoskelatal:normal inspection, no edema Neurologic/Psych:AAOX3, grossly no focal neurological deficits Skin: normal color, warm Lab data as noted below. ASSESSMENT & PLAN: Acute Cholecystitis: Presents with right upper quadrant pain, gallbladder ultrasound suggestive of acute cholecystitis Leukocytosis improving Continue Zosyn Blood culture:pending Appreciate Surgery Input Cardiology eval prior to laparoscopic cholecystectomy Pain is controlled Valvular Heart Disease: Moderate Aortic Stenosis, mild AR Cardiac stress test on February 2017: Negative for stress-induced ischemia ECHO pending Cardiology consulted for preop evaluation Advanced COPD Follows with pulmonology at [facility] H/O heavy smoking quit in 2014 No signs of exacerbation continue home inhalers Nebs PRN Chronic Afib: rate controlled Continue digoxin, cardizem On chronic anticoagulation on Coumadin Currently coumadin on hold for lap josé miguel INR:1.3 today Coagulopathy: INR: 4.5 on presentation S/P Vit K Monitor INR Code Status: Full Code DVT Px: SCDs for now Disposition: Expected to be discharged home when medically stable PT OT evaluation prior to DC Social service consult for discharge planning Vital Signs: Date Time Temp Pulse Resp B/P (MAP) Pulse Ox O2 Delivery O2 Flow Rate FiO2 06/28/17 07:31 36.6 82 16 104/71 (82) 97 06/28/17 07:05 90 16 92 Room Air 06/28/17 04:31 Room Air 06/28/17 03:39 36.7 96 20 108/63 (78) 93 Room Air 06/28/17 00:02 36.7 105 17 102/52 (69) 92 Room Air 06/28/17 00:00 Room Air 06/27/17 20:00 36.8 85 18 122/55 (77) 95 Room Air 06/27/17 20:00 Room Air 06/27/17 19:03 82 16 92 Room Air 06/27/17 16:41 36.7 84 20 105/54 (71) 92 Room Air 06/27/17 16:00 Room Air 06/27/17 14:45 36.9 87 22 106/56 (73) 94 Room Air 06/27/17 13:45 75 16 96/58 96 Room Air 06/27/17 13:30 82 16 99/66 06/27/17 13:16 36.5 78 16 89/58 98 Room Air 06/27/17 12:50 36.6 82 16 97/60 98 Room Air 06/27/17 12:13 85 06/27/17 11:41 97 Room Air 06/27/17 11:14 86 16 06/27/17 10:25 100 18 109/66 97 Room Air 06/27/17 09:49 100 20 116/65 96 Room Air 06/27/17 09:08 99 Lab Results: Results Past 24 Hours Test 06/27/17 09:00 06/27/17 09:33 06/27/17 09:47 06/27/17 15:00 Range/Units Sodium Level 140 136-145 mmol/L Potassium Level 4.1 3.5-5.1 mmol/L Chloride Level 111 98-107 mmol/L Carbon Dioxide Level 25 21-32 mmol/L Anion Gap 4.0 3-11 mmol/L Blood Urea Nitrogen 18 7-18 mg/dl Creatinine 0.89 0.60-1.20 mg/dl Est Creatinine Clear Calc Drug Dose 42.7 ml/min Estimated GFR () 70.4 Estimated GFR (Non- 60.8 BUN/Creatinine Ratio 20.3 10-20 Random Glucose 81 70-99 mg/dl Calcium Level 7.8 8.5-10.1 mg/dl Total Bilirubin 0.5 0.2-1 mg/dl Aspartate Amino Transf (AST/SGOT) 13 15-37 U/L Alanine Aminotransferase (ALT/SGPT) 14 12-78 U/L Alkaline Phosphatase 72 45-117 U/L Total Creatine Kinase 63 26-192 U/L Creatine Kinase MB 1.0 0.5-3.6 ng/ml Creatine Kinase MB Ratio 0-3.0 Troponin I < 0.015 0-0.045 ng/ml Total Protein 7.1 6.4-8.2 gm/dl Albumin 2.8 3.4-5.0 gm/dl Globulin 4.3 2.5-4.0 gm/dl Albumin/Globulin Ratio 0.7 0.9-2 Amylase Level 37 25-115 U/L Lipase 133 73-393 U/L White Blood Count 16.31 4.8-10.8 K/uL Red Blood Count 4.75 4.2-5.4 M/uL Hemoglobin 14.0 12.0-16.0 g/dL Hematocrit 42.3 37-47 % Mean Corpuscular Volume 89.1 80-100 fL Mean Corpuscular Hemoglobin 29.5 25-34 pg Mean Corpuscular Hemoglobin Concent 33.1 32-36 g/dl Platelet Count 289 130-400 K/uL Mean Platelet Volume 10.2 7.4-10.4 fL Neutrophils (%) (Auto) 82.1 % Lymphocytes (%) (Auto) 8.3 % Monocytes (%) (Auto) 8.0 % Eosinophils (%) (Auto) 1.2 % Basophils (%) (Auto) 0.2 % Neutrophils # (Auto) 13.38 1.4-6.5 K/uL Lymphocytes # (Auto) 1.36 1.2-3.4 K/uL Monocytes # (Auto) 1.31 0.11-0.59 K/uL Eosinophils # (Auto) 0.19 0-0.5 K/uL Basophils # (Auto) 0.03 0-0.2 K/uL RDW Standard Deviation 51.4 36.4-46.3 fL RDW Coefficient of Variation 15.6 11.5-14.5 % Immature Granulocyte % (Auto) 0.2 % Immature Granulocyte # (Auto) 0.04 0.00-0.02 K/uL Prothrombin Time 45.9 9.0-12.0 SECONDS Prothromb Time International Ratio 4.5 0.9-1.1 Activated Partial Thromboplast Time 55.6 21.0-31.0 SECONDS Partial Thromboplastin Ratio 2.1 Digoxin Level 0.9 0.8-2.0 ng/ml Urine Color YELLOW Urine Appearance CLEAR CLEAR Urine pH 5.0 4.5-7.5 Urine Specific [place] 1.018 1.000-1.030 Urine Protein NEG NEG Urine Glucose (UA) NEG NEG Urine Ketones NEG NEG Urine Occult Blood NEG NEG Urine Nitrite NEG NEG Urine Bilirubin NEG NEG Urine Urobilinogen NEG NEG Urine Leukocyte Esterase SMALL NEG Urine WBC (Auto) 1-5 0-5 /hpf Urine RBC (Auto) 0-4 0-4 /hpf Urine Hyaline Casts (Auto) 1-5 0-5 /lpf Urine Epithelial Cells (Auto) 10-20 0-5 /lpf Urine Bacteria (Auto) NEG NEG Test 06/27/17 15:43 06/28/17 04:35 Range/Units Prothrombin Time 26.3 13.7 9.0-12.0 SECONDS Prothromb Time International Ratio 2.6 1.3 0.9-1.1 White Blood Count 10.88 4.8-10.8 K/uL Red Blood Count 4.44 4.2-5.4 M/uL Hemoglobin 13.3 12.0-16.0 g/dL Hematocrit 39.8 37-47 % Mean Corpuscular Volume 89.6 80-100 fL Mean Corpuscular Hemoglobin 30.0 25-34 pg Mean Corpuscular Hemoglobin Concent 33.4 32-36 g/dl RDW Standard Deviation 51.8 36.4-46.3 fL RDW Coefficient of Variation 15.5 11.5-14.5 % Platelet Count 269 130-400 K/uL Mean Platelet Volume 10.3 7.4-10.4 fL Sodium Level 142 136-145 mmol/L Potassium Level 3.6 3.5-5.1 mmol/L Chloride Level 112 98-107 mmol/L Carbon Dioxide Level 25 21-32 mmol/L Anion Gap 5.0 3-11 mmol/L Blood Urea Nitrogen 11 7-18 mg/dl Creatinine 0.84 0.60-1.20 mg/dl Est Creatinine Clear Calc Drug Dose 44.6 ml/min Estimated GFR () 75.5 Estimated GFR (Non- 65.2 BUN/Creatinine Ratio 12.7 10-20 Random Glucose 82 70-99 mg/dl Calcium Level 7.8 8.5-10.1 mg/dl Total Bilirubin 0.7 0.2-1 mg/dl Direct Bilirubin 0.2 0-0.2 mg/dl Aspartate Amino Transf (AST/SGOT) 12 15-37 U/L Alanine Aminotransferase (ALT/SGPT) 10 12-78 U/L Alkaline Phosphatase 61 45-117 U/L Total Protein 6.0 6.4-8.2 gm/dl Albumin 2.6 3.4-5.0 gm/dl Globulin 3.4 2.5-4.0 gm/dl Albumin/Globulin Ratio 0.8 0.9-2 Microbiology Results 06/27/17 Blood Culture, Received Pending 06/27/17 Blood Culture, Received Pending
--- NOTE | 2017-06-28 09:43 | History & Physical Bridge Note ---
H&P Re-Evaluation Bridge Note: I have examined the patient, reviewed the History & Physical and in the interval since the performance of the History & Physical I have noted the following changes of clinical significance: No changes noted
--- NOTE | 2017-06-28 09:58 | Cardiology Consultation ---
Cardiology Consultation History of Present Illness Patient is a 82 year old female who is know known to [facility], follows with Hiren Cano PA-C as an outpatient. She carries a history of moderate valvular heart disease with moderate aortic stenosis, preserved LV function and no inducible ischemia per dobutamine stress report dated 02/2017, chronic atrial fibrillation (rate control and chronically anticoagulated after unsuccessful cardioversion in 2008) with a Chads2 Score of 4 out of 6 based on her history of hypertension, age, and old infarcts on CT of the head, severe chronic obstructive pulmonary disease with tobacco abuse from the age of 18 to the age of 79, mild b/l carotid stenosis, chronically abnormal EKG suggestive of LVH with strain, and osteoarthritis. Patient states she developed right upper quadrant pain this weekend after eating meal of fried foods while camping. She went to [facility] ( closest facility to her location) due to severe pain/discomfort. Imaging was not available. They treated her with pain medication and discharged her with antibiotic. She was scheduled for f/u with ultrasound and with primary care physician. She felt well Sunday and Sunday with treatment, and then developed severe recurrent right upper quadrant pain again. She came to [place] ER for evaluation. Found to have elevated WBC and GB US with evidence of cholelithiasis with gallbladder wall thickening. Surgery consulted for lap josé miguel. Cardiology consulted for preoperative cardiology evaluation/risk assessment and to assist in perioperative management of cardiac issues. At time of consult, patient resting in bed, feeling well. Abdominal pain improved. She denies recent chest pain or worsening SOB. Stable functional capacity. Remains active. Has been recently camping with her family. She notes chronic cough/dyspnea with activities attributing this to chronic COPD which has been stable. No sense of palpitations or tachypalpitations. No orthopnea, PND or edema. No fever or chills. (Verito Ladd PA-C) Past Medical/Surgical History Problem List: Medical Problems: Atrial Fibrillation, chronic Chronic obstructive lung disease Osteoporosis Nos Pulmonary emphysema Valvular heart disease - moderate , moderate MR. Prior tobacco abuse History of probable CVA (noted on CT scan of head) Surgical Problems: History of total hip arthroplasty Hysterectomy Appendectomy Cataract surgery (Verito Ladd PA-C) Family History Non contributory (Verito Ladd PA-C) Social History Smoking Status: Former Smoker Drug Use: none Marital Status: Housing Status: lives with family Occupation: retired (Verito Ladd PA-C) Review Of Systems Review of Systems: See HPI for pertinent positives. All other 10 point review of systems is negative. (Verito Ladd PA-C) Allergies Coded Allergies: No Known Allergies (Verified , 06/27/17) Medications Reported Home Medications Medications Dose Route/Sig Max Daily Dose Days Date Category Dose Instructions Probiotic (Probiotic Product) 1 Cap Cap 1 Cap PO DAILY 06/27/17 Reported Acetaminophen 325 Mg Tab 650 Mg PO Q4 PRN 06/27/17 Reported Digoxin 0.125 Mg Tab 0.125 Mg PO DAILY 06/27/17 Reported Ventolin Hfa (Albuterol) 200 Puffs/81512 Mcg Aers 2-4 Puffs INH Q6H PRN 06/27/17 Reported Cardizem Cd (Diltiazem Hcl Coated Beads) 240 Mg Cap 240 Mg PO DAILY 06/27/17 Reported Perforomist (Formoterol Fumarate) 20 Mcg/2 Ml Nebu 2 Ml INH BID 07/21/14 Reported mix with Budesonide Duoneb (Ipratropium-Albuterol) 3 Ml Nebu 1 Treatment INH Q4H PRN 07/21/14 Reported Colace (Docusate Sodium) 100 Mg Cap 100 Mg PO DAILY 07/21/14 Reported Buspirone Hcl 10 Mg Tab 10 Mg PO BID 07/21/14 Reported Warfarin Sodium 2 Mg Tab 2 Mg PO DAILY 08/12/12 Reported (Verito Ladd PA-C) Physical Exam Vital Signs (Last 8hrs): Last 8 Hrs Date Time Temp Pulse Resp B/P (MAP) Pulse Ox O2 Delivery O2 Flow Rate FiO2 06/28/17 07:31 36.6 82 16 104/71 (82) 97 06/28/17 07:05 90 16 92 Room Air 06/28/17 04:31 Room Air 06/28/17 03:39 36.7 96 20 108/63 (78) 93 Room Air General Appearance: Alert and Oriented x3. NAD. Head: Normocephalic Atraumatic. Eyes: PERRLA, EOMI, conjunctiva and sclera clear Neck: Supple. No carotid bruits noted. No JVD. No HJD. Respiratory: Breath sounds clear to auscultation bilaterally. No w/r/r. Cardiovascular: Reg rate and rhythm. S1 and S2 noted. No murmurs, rubs, gallops. PMI non displace. Abdomen: Normal bowel sounds, soft nontender. no abdominal bruits. Extremities: No edema, no clubbing or cyanosis. distal pulses 2/4 bilaterally. Neuro: No focal deficits. Psychiatric: Normal affect. (Verito Ladd, SKY) Data Last 24 Hours Test 06/27/17 08:40 06/27/17 09:00 06/27/17 09:33 06/27/17 09:47 Creatine Kinase MB Ratio Sodium Level 140 mmol/L Potassium Level mmol/L 4.1 mmol/L Chloride Level 111 mmol/L Carbon Dioxide Level 25 mmol/L Anion Gap 4.0 mmol/L Blood Urea Nitrogen 18 mg/dl Creatinine 0.89 mg/dl Est Creatinine Clear Calc Drug Dose 42.7 ml/min Estimated GFR () 70.4 Estimated GFR (Non- 60.8 BUN/Creatinine Ratio 20.3 Random Glucose 81 mg/dl Calcium Level 7.8 mg/dl Total Bilirubin 0.5 mg/dl Aspartate Amino Transf (AST/SGOT) U/L 13 U/L Alanine Aminotransferase (ALT/SGPT) 14 U/L Alkaline Phosphatase 72 U/L Total Creatine Kinase U/L 63 U/L Creatine Kinase MB 1.0 ng/ml Troponin I < 0.015 ng/ml Total Protein 7.1 gm/dl Albumin 2.8 gm/dl Globulin 4.3 gm/dl Albumin/Globulin Ratio 0.7 Amylase Level 37 U/L Lipase 133 U/L White Blood Count 16.31 K/uL Red Blood Count 4.75 M/uL Hemoglobin 14.0 g/dL Hematocrit 42.3 % Mean Corpuscular Volume 89.1 fL Mean Corpuscular Hemoglobin 29.5 pg Mean Corpuscular Hemoglobin Concent 33.1 g/dl Platelet Count 289 K/uL Mean Platelet Volume 10.2 fL Neutrophils (%) (Auto) 82.1 % Lymphocytes (%) (Auto) 8.3 % Monocytes (%) (Auto) 8.0 % Eosinophils (%) (Auto) 1.2 % Basophils (%) (Auto) 0.2 % Neutrophils # (Auto) 13.38 K/uL Lymphocytes # (Auto) 1.36 K/uL Monocytes # (Auto) 1.31 K/uL Eosinophils # (Auto) 0.19 K/uL Basophils # (Auto) 0.03 K/uL RDW Standard Deviation 51.4 fL RDW Coefficient of Variation 15.6 % Immature Granulocyte % (Auto) 0.2 % Immature Granulocyte # (Auto) 0.04 K/uL Prothrombin Time 45.9 SECONDS Prothromb Time International Ratio 4.5 Activated Partial Thromboplast Time 55.6 SECONDS Partial Thromboplastin Ratio 2.1 Digoxin Level 0.9 ng/ml Test 06/27/17 15:00 06/27/17 15:43 06/28/17 04:35 Urine Color YELLOW Urine Appearance CLEAR Urine pH 5.0 Urine Specific [place] 1.018 Urine Protein NEG Urine Glucose (UA) NEG Urine Ketones NEG Urine Occult Blood NEG Urine Nitrite NEG Urine Bilirubin NEG Urine Urobilinogen NEG Urine Leukocyte Esterase SMALL Urine WBC (Auto) 1-5 /hpf Urine RBC (Auto) 0-4 /hpf Urine Hyaline Casts (Auto) 1-5 /lpf Urine Epithelial Cells (Auto) 10-20 /lpf Urine Bacteria (Auto) NEG Prothrombin Time 26.3 SECONDS 13.7 SECONDS Prothromb Time International Ratio 2.6 1.3 White Blood Count 10.88 K/uL Red Blood Count 4.44 M/uL Hemoglobin 13.3 g/dL Hematocrit 39.8 % Mean Corpuscular Volume 89.6 fL Mean Corpuscular Hemoglobin 30.0 pg Mean Corpuscular Hemoglobin Concent 33.4 g/dl RDW Standard Deviation 51.8 fL RDW Coefficient of Variation 15.5 % Platelet Count 269 K/uL Mean Platelet Volume 10.3 fL Sodium Level 142 mmol/L Potassium Level 3.6 mmol/L Chloride Level 112 mmol/L Carbon Dioxide Level 25 mmol/L Anion Gap 5.0 mmol/L Blood Urea Nitrogen 11 mg/dl Creatinine 0.84 mg/dl Est Creatinine Clear Calc Drug Dose 44.6 ml/min Estimated GFR () 75.5 Estimated GFR (Non- 65.2 BUN/Creatinine Ratio 12.7 Random Glucose 82 mg/dl Calcium Level 7.8 mg/dl Total Bilirubin 0.7 mg/dl Direct Bilirubin 0.2 mg/dl Aspartate Amino Transf (AST/SGOT) 12 U/L Alanine Aminotransferase (ALT/SGPT) 10 U/L Alkaline Phosphatase 61 U/L Total Protein 6.0 gm/dl Albumin 2.6 gm/dl Globulin 3.4 gm/dl Albumin/Globulin Ratio 0.8 Imaging: Chest xray on admission: IMPRESSION: Minimal bibasilar atelectatic and/or developing infiltrative change. Mild emphysematous change. GB US: IMPRESSION: 1. Cholelithiasis with gallbladder wall thickening and reported right upper quadrant tenderness is noted without pericholecystic fluid. Correlate clinically to exclude acute cholecystitis. 2. Mild dilation of the common bile duct, 1.0 cm without obstructing biliary stone or lesion identified. 3. Redemonstration of multiple hepatic cysts. 2D echo report this admission; No significant change compared of 03/20/17. * Normal LV chamber size with moderate concentric LVH. * Normal LV systolic function, EF 60-65%. * No segmental left ventricular wall motion abnormalities are noted. * Severe left atrial enlargement denotes the presence of diastolic dysfunction. * The aortic valve is not well visualized. Severely calcified aortic valve. Mild aortic regurgitation. Mild to moderate valvular aortic stenosis. * There is severe mitral annular calcification. There is moderate mitral regurgitation. * Mild tricuspid regurgitation. * Pulmonary hypertension is present with a PASP of 44 mmHG assuming a RA pressure of 3 mmHg. EKG on admission reviewed: Atrial fibrillation with rapid ventricular response at 102 bpm Abnormal ECG When compared with ECG of 12-AUG-2012 20:18, Nonspecific T wave abnormality, improved in Inferior leads Repeat EKG this AM, 06/28/17: Atrial fibrillation, improved rate at 81 bpm Abnormal ECG When compared with ECG of 27-JUN-2017 08:59, No significant change was found Telemetry reviewed: Atrial fibrillation, chronic, controlled rates predominantly in the 80's. Prior Data: Dobutamine Stress Echo report reviewed, dated 03/20/17: Interpretation Summary The examination is adequate to evaluate the referral indication. The stress echo is negative for inducible ischemia. Resting rhythm was atrial fibrillation with elevated ventricular response rate. Heart rate jimmie easily to well above target heart rate with low dose dobutamine Blood pressure response to exercise was normal. Atrial fibrillation was noted at rest. Left ventricular hypertrophy with strain is noted at rest EKG. Uninterpretable Stress EKG due to repolarization changes of Left ventricular hypertrophy. The left ventricular wall motion is normal. The left ventricular wall motion with stress is normal. The left ventricular ejection fraction increases normally with stress. The left ventricular systolic function is normal. The LV wall thickness is moderately increased (concentric). The qualitative LV ejection fraction is 6569% (normal). The aortic valve is severely calcified. Moderate aortic valve stenosis is present. There is severe mitral annular calcification. The mitral valve leaflets are moderately calcified. Mild mitral stenosis is present. Moderate mitral regurgitation is present. The left atrium is severely enlarged. Mild tricuspid regurgitation is present. (Verito Ladd PA-C) Assessment & Plan 1. Preoperative cardiology evaluation and risk assessment prior to planned lap cholecystectomy 2. Chronic atrial fibrillation, rates controlled. Holding coumadin. 3. Moderate valvular heart disease with moderate aortic stenosis and moderate MR with calcification of the valves. 4. COPD 5. Hypertension 6. History of prior CVA as noted on prior imaging studies. No symptoms. PLAN: Stable cardiac signs/symptoms. No anginal or CHF complaints. Stable echo findings with preserved LV function, moderate valvular heart disease , unchanged from prior study. Given her cardiac/non cardiac comorbidities, she is considered high risk for surgery, however not prohibitive. Further cardiac testing is not warranted at this time, as this would not reduce or improve her overall surgical risk. Continue digoxin and diltiazem for rate control Gentle hydration only to prevent volume overload given valvular heart disease Once bleeding risk is minimal in the post op setting, recommend initiating heparin to Coumadin given chronic afib and stroke risk. Patient is understanding of the cardiovascular risks of surgery and willing to proceed as necessary. Case discussed with Dr. Vaca. Will follow. (Verito Ladd PA-C) Cardiology attending: Pt seen and examine, agree with findings and assessment as per Verito Horvath. Pt currently without complaint except for RUQ pain with motion, preoperatively. Pt counseled that I would place her at a high risk for adverse perioperative cardiovascular event with a risk approx >5%. She was further counseled that no further cardiac testing or intervention would further lower that risk. She states that she understands, she is accepting of that risk and wishes to proceed with cholecystectomy. No need to delay from cardiac standpoint. (Michael Vaca, D.O.)
[2017-06-28] MEDS ORDERED: CEFAZOLIN SOD 2000MG/15 ML IV PUSH ONE (13:29)
[2017-06-28] MEDS ORDERED: BACITRACIN OINT 15 GM TUBE ONE (13:35)
[2017-06-28] MEDS ORDERED: BUPIVACAINE 0.5 % 5 MG/1 ML MPF 30ML VIAL ONE (13:35)
[2017-06-28] MEDS ORDERED: LIDOCAINE HCL 1% 20 ML VIAL ONE (13:35)
[2017-06-28] MEDS ORDERED: GLYCOPYRROLATE INJ 0.2 MG/ML VIAL ONE ×2 (13:43→14:10)
[2017-06-28] MEDS ORDERED: ONDANSETRON INJ 2 MG/ML 2 ML VIAL ONE (13:43)
[2017-06-28] MEDS ORDERED: FENTANYL CITRATE INJ 50 MCG/1 ML 2 ML VIAL ONE ×2 (13:43)
[2017-06-28] MEDS ORDERED: DEXAMETHASONE SOD INJ 4 MG/ML VIAL ONE (13:43)
[2017-06-28] MEDS ORDERED: LIDOCAINE HCL 2% 2 ML VIAL (20MG/ML) ONE (13:43)
[2017-06-28] MEDS ORDERED: PROPOFOL IV EMULSION 10 MG/ML 20 ML VIAL ONE (13:43)
[2017-06-28] MEDS ORDERED: NEOSTIGMINE METHYLSULFATE 5 MG/5 ML SYR ONE (13:43)
[2017-06-28] MEDS ORDERED: CEFAZOLIN SOD 1000MG/7.5 ML IV PUSH IV ONE (13:45)
[2017-06-28] MEDS ORDERED: PHENYLEPHRINE 100MCG/ML 5ML SYR IV PRN (13:45)
[2017-06-28] MEDS ORDERED: ATROPINE SULFATE 0.1 MG/ML 5ML SYR IV PRN (13:45)
[2017-06-28] MEDS ORDERED: ONDANSETRON INJ 2 MG/ML 2 ML VIAL IV PRN (13:45)
[2017-06-28] MEDS ORDERED: EpHEDrine SULFATE INJ 50 MG/ML AMP IV PRN (13:45)
[2017-06-28] MEDS ORDERED: HYDROmorphone INJ 2 MG/ML SYR/VIAL IV PRN (13:45)
[2017-06-28] MEDS ORDERED: PHENYLEPHRINE 100MCG/ML 5ML SYR ONE (14:10)
[2017-06-28] MEDS ORDERED: ALBUTEROL HFA INHALER 8.5 GM INH ONE (14:29)
[2017-06-28] MEDS ORDERED: ROCURONIUM BROMIDE 10 MG/ML 5 ML VIAL ONE (14:55)
--- NOTE | 2017-06-28 14:57 | [facility] Post Operative Brief Note ---
Immediate Operative Summary Operative Date June 28, 2017. Pre-Operative Diagnosis Acute cholecystitis, Cholelithaisis Post-Operative Diagnosis Acute cholecystitis, Cholelithaisis Procedure(s) Performed Laparoscopic Cholecystectomy Surgeon Dr Weathers Insole And Outsole Splitter Surgeon(s) Becca Lerner PA-C Estimated Blood Loss 10cc Findings Consistent with Post-Op Diagnosis Fluids (cc crystalloids) 400ml Specimens As Per Surgeon A. Gallbladder and Contents Drains None Anesthesia Type General Complication(s) none Disposition Accompanied Pt To Recover: yes Disposition: Recovery Room / PACU
--- NOTE | 2017-06-28 15:58 | OPERATIVE REPORT ---
DATE OF OPERATION: 06/28/2017 PREOPERATIVE DIAGNOSES: Acute cholecystitis, cholelithiasis. POSTOPERATIVE DIAGNOSIS: Same. PROCEDURE: Laparoscopic cholecystectomy. SURGEON: Dr. Cece Weathers. HEARING AID SPECIALIST: Ale NANCE ANESTHESIA: General. ESTIMATED BLOOD LOSS: About 10 mL. FINDINGS: Acute cholecystitis with cholelithiasis. COMPLICATIONS: None. INDICATIONS FOR THE PROCEDURE: This is an 82-year-old female who was admitted to the hospital for right upper quadrant pain. The patient had an ultrasound which showed acute cholecystitis with cholelithiasis. pt had ceo na consult for cardiac clearance, pt is high risks for surgery, The patient and her still wanted to do laparoscopic cholecystectomy, possible open, possible cholangiogram. I did talk to the patient and patient's about the benefits, risks, and alternatives to procedure. I indicated that risks may include but are not limited to bleeding, infection, injury to common bile duct, injury to bowel, may need ERCP, myocardial infarction, DVT, stroke, pulmonary failure, even . The patient and the patient's understood. There agreed to proceed with the procedure. The patient signed informed consent, and I answered all questions. DETAILS OF PROCEDURE: We brought in the patient to the OR, put the patient in the supine position. The patient received SCD on bilateral legs to prevent DVT. Also, the patient received 1 g Ancef IV for prophylactic antibiotic. The patient received general anesthesia without difficulty, so abdomen was appropriately draped in routine sterile fashion. After timeout, I injected the local anesthesia on the upper abdomen up to umbilical area by using 1% lidocaine mixed with 0.5% Marcaine. Then we made a small incision just above umbilicus, opened fascia and opened peritoneum under direct vision. We put a Patria trocar in, connected to CO2 to create pneumoperitoneum. Flow rate is 6 L/min. Pressure not more than 14 mmHg. Once we got nice pneumoperitoneum, we put a camera in, looked around the abdomen, showing normal finding of the small bowel, large bowel, and stomach; however, the gallbladder showed acute cholecystitis, gallbladder wall edema and wall thickening, and then we put another three 5 mm trocars on the right upper quadrant. Once all the trocars in, we used a grasper, held the base of gallbladder put in direction to the diaphragm, put another grasper and held the pouch of gallbladder and put lateral to expose the triangle of Calot. The cystic duct was identified and mobilized, then I put two 5 mm clips on the proximal cystic duct and one on the distal cystic duct. I used the scissor transection of the cystic duct. The cystic duct tear was identified and mobilized. I put two 5 mm metal clip on the proximal cystic artery, one on the distal cystic artery. I used the scissor transection of cystic artery, rechecked, no active bleeding. Then we used the bowel. We took down gallbladder from the liver bed without difficulty. Rechecked, no active bleeding, no bile leak. Then we removed the gallbladder through the catch bag, and then we reinserted Patria trocar in, connected to CO2 to create pneumoperitoneum again, looked around her abdomen, no active bleeding, no bile leak from liver bed, then we removed all trocar under direct vision. No active bleeding from trocar sites. Pneumoperitoneum was released. Then we closed the umbilical incision fascial layer by using #1 Vicryl [id number] x2, closed the subcutaneous layer by using 2-0 Vicryl interrupted, and closed skin by using 4-0 Vicryl continuous running. Closed another three 5 mm trocars in the skin only by using 4-0 Vicryl. I put a dressing on. The patient tolerated the procedure well. All the instrument, needle, and sponge counts were correct x2. At the end of case, the patient transferred to recovery room in stable condition, with the specimen sent to pathology. I attest to the content of the Intraoperative Record and any orders documented therein. Any exceptions are noted below. MAXIMINO
[2017-06-28] MEDS ORDERED: DIGOXIN 0.125 MG TAB PO SCH (16:00)
--- NOTE | 2017-06-28 16:55 | Anesthesiology Progress Note ---
Anesthesia Post Op Note Date & Time June 28, 2017 at 16:55 Vital Signs Pain Intensity: 1 Vital Signs Past 12 Hours Date Time Temp Pulse Resp B/P (MAP) Pulse Ox O2 Delivery O2 Flow Rate FiO2 06/28/17 15:49 37 06/28/17 15:46 103/59 06/28/17 15:45 78 15 94 06/28/17 15:45 79 15 06/28/17 15:41 105/52 06/28/17 15:40 75 21 96 06/28/17 15:40 80 21 06/28/17 15:36 117/63 06/28/17 15:35 74 22 96 06/28/17 15:35 80 22 06/28/17 15:31 113/63 06/28/17 15:30 73 12 06/28/17 15:30 72 12 95 06/28/17 15:26 117/61 06/28/17 15:25 81 13 06/28/17 15:25 71 13 96 06/28/17 15:21 122/68 06/28/17 15:20 81 19 98 06/28/17 15:20 84 19 06/28/17 15:18 125/67 06/28/17 15:15 37.1 83 14 125/67 97 Nasal Cannula 3 06/28/17 12:00 Room Air 06/28/17 11:16 36.7 92 18 111/73 (86) 97 06/28/17 08:00 Room Air 06/28/17 07:31 36.6 82 16 104/71 (82) 97 06/28/17 07:05 90 16 92 Room Air Notes Mental Status: alert / awake / arousable, participated in evaluation Pt Amnestic to Procedure: Yes Nausea / Vomiting: adequately controlled Pain: adequately controlled Airway Patency, RR, SpO2: stable & adequate BP & HR: stable & adequate Hydration State: stable & adequate Anesthetic Complications: no major complications apparent
[2017-06-29] VITALS: BP 91/59; PULSE 85; TEMP 36.3; O2SAT 92
[2017-06-29] MEDS: PIPERACILL/TAZOBAC IV 3.375 GM in DEXTROSE 5% 100ML 100 ML IV SCH ×2 (02:13→09:28)
[2017-06-29 03:19] VITALS: BP 87/56; PULSE 80; TEMP 36.2; O2SAT 92
[2017-06-29 04:28] LABS: HEMATOCRIT 42.4 % (37-47); HEMOGLOBIN 14.2 g/dL (12.0-16.0); MEAN CELL VOLUME 88.7 fL (80-100); MEAN CORPUSCULAR HEMOGLOBIN 29.7 pg (25-34); MEAN CORPUSCULAR HGB CONC 33.5 g/dl (32-36); MEAN PLATELET VOLUME 9.9 fL (7.4-10.4); PLATELET COUNT 282 K/uL (130-400); RED CELL DISTRIBUTION WIDTH SD 48.5 fL (36.4-46.3); WHITE BLOOD COUNT 10.84 K/uL (4.8-10.8)
[2017-06-29 04:40] LABS: INR 1.1 (0.9-1.1)
[2017-06-29 04:48] LABS: ALBUMIN 2.6 gm/dl (3.4-5.0); CALCIUM 8.1 mg/dl (8.5-10.1); CREATININE 0.94 mg/dl (0.60-1.20)
[2017-06-29 04:51] LABS: TOTAL PROTEIN 6.6 gm/dl (6.4-8.2)
[2017-06-29] MEDS ORDERED: CEFAZOLIN SOD 2000MG/15 ML IV PUSH IV ONE (06:00)
[2017-06-29 06:59] VITALS: PULSE 77; O2SAT 96
[2017-06-29] MEDS: FORMOTEROL FUMA NEBULIZER SOLN 20 MCG/2 ML VIAL INH SCH (06:59)
--- NOTE | 2017-06-29 07:31 | Anesthesiology Progress Note ---
Anesthesia Post Op Note Date & Time June 29, 2017 at 07:31 Vital Signs Pain Intensity: 0.0 Vital Signs Past 12 Hours Date Time Temp Pulse Resp B/P (MAP) Pulse Ox O2 Delivery O2 Flow Rate FiO2 06/29/17 06:59 77 16 96 Room Air 06/29/17 04:00 Room Air 06/29/17 03:19 36.2 80 15 87/56 (66) 92 Room Air 06/29/17 00:00 Room Air 06/29/17 00:00 36.3 85 18 91/59 (70) 92 Room Air 06/28/17 20:00 97 Room Air 06/28/17 19:55 36.7 94 18 96/53 (67) 96 Nasal Cannula 1.0 Notes Mental Status: alert / awake / arousable, participated in evaluation Pt Amnestic to Procedure: Yes Nausea / Vomiting: adequately controlled Pain: adequately controlled Airway Patency, RR, SpO2: stable & adequate BP & HR: stable & adequate Hydration State: stable & adequate Anesthetic Complications: no major complications apparent
[2017-06-29 07:33] VITALS: BP 98/60; PULSE 78; TEMP 36.8; O2SAT 94
[2017-06-29] MEDS: DILTIAZEM HCL 240 MG CAPCR PO SCH (08:01)
[2017-06-29] MEDS: DOCUSATE SODIUM 100 MG CAP PO SCH (08:01)
--- NOTE | 2017-06-29 09:24 | Progress Note ---
Internal Med Progress Note Date of Service: June 29, 2017. Provider Documentation: SUBJECTIVE: Seen and examined at bedside Abdominal pain is controlled +Flatus, No BM yet Denies nausea, vomiting, chest pain, SOB Chronic dizziness No other complaints Eager to get discharged OBJECTIVE: Vital Signs-as noted below Physical Exam: General Appearance:Thin, no apparent distress Head: normocephalic, Atraumatic Eyes: normal inspection, EOMI, PERRL Neck: supple, Trachea midline Respiratory/Chest: Decreased breath sounds, CTA Cardiovascular: Irregularly Irregular, No murmur Abdomen/GI:Soft, Mild RUQ tender, Bowel sounds present Extremities/Musculoskelatal:normal inspection, no edema Neurologic/Psych:AAOX3, grossly no focal neurological deficits Skin: normal color, warm Lab data as noted below. ASSESSMENT & PLAN: Acute Cholecystitis: S/P Laparoscopic Cholecystectomy POD #1 Leukocytosis improved Continue Zosyn Blood culture:No growth to date Appreciate Surgery Input Pain is controlled Valvular Heart Disease: Moderate Aortic Stenosis, mild AR Cardiac stress test on February 2017: Negative for stress-induced ischemia ECHO as below Appreciate Cardiology Input Advanced COPD Follows with pulmonology at [facility] H/O heavy smoking quit in 2014 No signs of exacerbation continue home inhalers Nebs PRN Chronic Afib: rate controlled Continue digoxin, cardizem On chronic anticoagulation on Coumadin Resume coumadin today Monitor INR:1.1 today Coagulopathy: INR: 4.5 on presentation S/P Vit K Monitor INR Code Status: Full Code DVT Px: SCDs Also on coumadin Disposition: Plan to discharge home today if cleared by surgery Follow up with your PCP on 07/04/17 at 9:45 Am Follow up with your Surgeon in 1-2 weeks, please call office at to make an appointment Follow up with your Coumadin clinic for Coumadin dosing as advised Seek immediate medical attention if your symptoms reoccur or worsen PROCEDURES: ECHO: No significant change compared of 03/20/17. * Normal LV chamber size with moderate concentric LVH. * Normal LV systolic function, EF 60-65%. * No segmental left ventricular wall motion abnormalities are noted. * Severe left atrial enlargement denotes the presence of diastolic dysfunction. * The aortic valve is not well visualized. Severely calcified aortic valve. Mild aortic regurgitation. Mild to moderate valvular aortic stenosis. * There is severe mitral annular calcification. There is moderate mitral regurgitation. * Mild tricuspid regurgitation. * Pulmonary hypertension is present with a PASP of 44 mmHG assuming a RA pressure of 3 mmHg. Vital Signs: Date Time Temp Pulse Resp B/P (MAP) Pulse Ox O2 Delivery O2 Flow Rate FiO2 06/29/17 08:00 Room Air 06/29/17 07:33 36.8 78 18 98/60 (73) 94 06/29/17 06:59 77 16 96 Room Air 06/29/17 04:00 Room Air 06/29/17 03:19 36.2 80 15 87/56 (66) 92 Room Air 06/29/17 00:00 Room Air 06/29/17 00:00 36.3 85 18 91/59 (70) 92 Room Air 06/28/17 20:00 97 Room Air 06/28/17 19:55 36.7 94 18 96/53 (67) 96 Nasal Cannula 1.0 06/28/17 19:17 93 16 93 Nasal Cannula 1.0 06/28/17 17:09 86 06/28/17 17:00 36.5 86 16 106/71 (83) 96 Nasal Cannula 3.0 06/28/17 16:30 36.4 86 18 102/65 (77) 92 Nasal Cannula 3.0 06/28/17 16:15 36.5 75 16 102/60 (74) 94 Nasal Cannula 3.0 06/28/17 16:00 36.5 76 16 101/59 (73) 93 Nasal Cannula 3.0 06/28/17 16:00 Nasal Cannula 3.0 06/28/17 15:49 37 06/28/17 15:46 103/59 06/28/17 15:45 78 15 94 06/28/17 15:45 79 15 06/28/17 15:41 105/52 06/28/17 15:40 75 21 96 06/28/17 15:40 80 21 06/28/17 15:36 117/63 06/28/17 15:35 74 22 96 06/28/17 15:35 80 22 06/28/17 15:31 113/63 06/28/17 15:30 73 12 06/28/17 15:30 72 12 95 06/28/17 15:26 117/61 06/28/17 15:25 81 13 06/28/17 15:25 71 13 96 06/28/17 15:21 122/68 06/28/17 15:20 81 19 98 06/28/17 15:20 84 19 06/28/17 15:18 125/67 06/28/17 15:15 37.1 83 14 125/67 97 Nasal Cannula 3 06/28/17 12:00 Room Air Lab Results: Results Past 24 Hours Test 06/29/17 04:10 Range/Units White Blood Count 10.84 4.8-10.8 K/uL Red Blood Count 4.78 4.2-5.4 M/uL Hemoglobin 14.2 12.0-16.0 g/dL Hematocrit 42.4 37-47 % Mean Corpuscular Volume 88.7 80-100 fL Mean Corpuscular Hemoglobin 29.7 25-34 pg Mean Corpuscular Hemoglobin Concent 33.5 32-36 g/dl RDW Standard Deviation 48.5 36.4-46.3 fL RDW Coefficient of Variation 15.0 11.5-14.5 % Platelet Count 282 130-400 K/uL Mean Platelet Volume 9.9 7.4-10.4 fL Prothrombin Time 11.5 9.0-12.0 SECONDS Prothromb Time International Ratio 1.1 0.9-1.1 Sodium Level 140 136-145 mmol/L Potassium Level 4.0 3.5-5.1 mmol/L Chloride Level 109 98-107 mmol/L Carbon Dioxide Level 23 21-32 mmol/L Anion Gap 8.0 3-11 mmol/L Blood Urea Nitrogen 15 7-18 mg/dl Creatinine 0.94 0.60-1.20 mg/dl Est Creatinine Clear Calc Drug Dose 41.3 ml/min Estimated GFR () 65.9 Estimated GFR (Non- 56.9 BUN/Creatinine Ratio 15.9 10-20 Random Glucose 119 70-99 mg/dl Calcium Level 8.1 8.5-10.1 mg/dl Magnesium Level 2.4 1.8-2.4 mg/dl Total Bilirubin 0.5 0.2-1 mg/dl Direct Bilirubin 0.1 0-0.2 mg/dl Aspartate Amino Transf (AST/SGOT) 15 15-37 U/L Alanine Aminotransferase (ALT/SGPT) 11 12-78 U/L Alkaline Phosphatase 60 45-117 U/L Total Protein 6.6 6.4-8.2 gm/dl Albumin 2.6 3.4-5.0 gm/dl Globulin 4.0 2.5-4.0 gm/dl Albumin/Globulin Ratio 0.7 0.9-2
[2017-06-29] MEDS ORDERED: OXYC-57 PO (09:26)
--- NOTE | 2017-06-29 09:28 | Consultant Recommendations ---
Type Photography Supervisor Recommendations Date of Service June 29, 2017. Type Photography Supervisor Recommendations No heavy lifting over 20 pounds for 3 weeks No strenuous activity until cleared by surgeon No submerging incisions underwater for 2 weeks (no bathing, swimming, or hot tubs) No driving while taking narcotic pain medication or until you are pain free You may shower in 3 days. Sponge bath and wash hair in meantime. Keep dressing clean and dry. After 3 days you may shower and remove outer dressings. Leave steri strips on incisions for 7 days and then remove. They may fall off on their own that is okay. Walking and light activity is encouraged to prevent blood clots from forming You will be given narcotic pain medication, as needed for moderate to severe pain. Take as direct. This medication may cause drowsiness and constipation. To combat constipation: -Drink Plenty of water daily - Take OTC stool softener such as Colace while taking narcotic pain medication - May take gentle laxative or prune juice if needed You may take extra strength Tylenol or Ibuprofen (with food) as needed for mild pain. If you kev till taking Percocet, take Ibuprofen in between doses for mild pain as Percocet has Tylenol in it. Follow-up in surgical office in 1-2 weeks, please call office at [phone] to make an appointment
--- NOTE | 2017-06-29 10:44 | Cardiology Follow-Up ---
Subjective General Date of Service: June 29, 2017. Chief Complaint: perioperative management Pt evaluation today including: conversation w/ patient, physical exam, chart review, lab review, review of studies, review of inpatient medication list History of Present Illness Patient underwent lap josé miguel yesterday. Tolerated procedure without incident. Denies chest pain or SOB. Feeling well. Wants to go home. Family is camping and anxious to go fishing. Abdominal pain controlled. Allergies Coded Allergies: No Known Allergies (Verified , 06/27/17) Social History Smoking Status: Former Smoker Hx Tobacco Use In Past Year?: No Hx Alcohol Use - Type And Amou: No Hx Substance Use - Type And Am: No Problem List Medical Problems: (1) Acute cholecystitis Status: Acute (2) Atrial Fibrillation Status: Chronic (3) Chronic obstructive lung disease Status: Chronic (4) Heart disease Status: Chronic (5) Osteoporosis Nos Status: Chronic (6) Pulmonary emphysema Status: Chronic (7) Supratherapeutic INR Status: Acute Review of Systems Respiratory: No cough, No sputum, No shortness of breath, No dyspnea on exertion, No dyspnea at rest, No hemoptysis Cardiac: No chest pain, No orthopnea, No PND, No edema, No palpitations Physical Exam Vital Signs Last Vital Signs Documentation Date Time Temp Pulse Resp B/P (MAP) Pulse Ox O2 Delivery O2 Flow Rate FiO2 06/29/17 08:00 Room Air 06/29/17 07:33 36.8 78 18 98/60 (73) 94 06/28/17 20:00 Physical Exam Constitutional: General Apperance: heathly-appearing Level of Distress: NAD Psychiatric: Mental Status: active & alert Orientation: to time, to place, to person Head: normocephalic Eyes: Pupils: PERRLA Neck: supple Lungs: Auscultation: no wheezing, no rales/crackles Cardiovascular: Heart Auscultation: II/ TARIK, irregular rate rhythm Abdomen: Bowel Sounds: normal Extremities: no edema Assessment and Plan Assessment and Plan 1.POD 1 lap cholecystectomy 2. Chronic atrial fibrillation, rates controlled. Resume coumadin. 3. Moderate valvular heart disease with moderate aortic stenosis and moderate MR with calcification of the valves. 4. COPD 5. Hypertension 6. History of prior CVA as noted on prior imaging studies. No symptoms. PLAN: Stable cardiac signs/symptoms. No anginal or CHF complaints. Stable echo findings with preserved LV function, moderate valvular heart disease , unchanged from prior study. Resume coumadin Stable for discharge from cardiac perspective. Close f/u with [facility] clinic to monitor PT/INR. Continue current cardiac medications. case discussed with Dr. Vaca. Cardiology attending: Pt seen and examined, agree with findings and assessment as per Verito Horvath. Tolerated surgery well. No active cardiac complaints at this time. Coumadin to be resumed and close f/u with [facility] clinic as outpatient. Ok to d/c to home or off tele from cardiac standpoint. Laboratory Results Last 24 Hours Test 06/29/17 04:10 White Blood Count 10.84 K/uL Red Blood Count 4.78 M/uL Hemoglobin 14.2 g/dL Hematocrit 42.4 % Mean Corpuscular Volume 88.7 fL Mean Corpuscular Hemoglobin 29.7 pg Mean Corpuscular Hemoglobin Concent 33.5 g/dl RDW Standard Deviation 48.5 fL RDW Coefficient of Variation 15.0 % Platelet Count 282 K/uL Mean Platelet Volume 9.9 fL Prothrombin Time 11.5 SECONDS Prothromb Time International Ratio 1.1 Sodium Level 140 mmol/L Potassium Level 4.0 mmol/L Chloride Level 109 mmol/L Carbon Dioxide Level 23 mmol/L Anion Gap 8.0 mmol/L Blood Urea Nitrogen 15 mg/dl Creatinine 0.94 mg/dl Est Creatinine Clear Calc Drug Dose 41.3 ml/min Estimated GFR () 65.9 Estimated GFR (Non- 56.9 BUN/Creatinine Ratio 15.9 Random Glucose 119 mg/dl Calcium Level 8.1 mg/dl Magnesium Level 2.4 mg/dl Total Bilirubin 0.5 mg/dl Direct Bilirubin 0.1 mg/dl Aspartate Amino Transf (AST/SGOT) 15 U/L Alanine Aminotransferase (ALT/SGPT) 11 U/L Alkaline Phosphatase 60 U/L Total Protein 6.6 gm/dl Albumin 2.6 gm/dl Globulin 4.0 gm/dl Albumin/Globulin Ratio 0.7
--- NOTE | 2017-06-29 11:22 | Surgery Progress Note ---
Surgery Progress Note Date of Service June 29, 2017. Subjective Post OP Day: 1 (s/p laparoscopic cholecystectomy) + feeling well, + ambulating, + pain controlled, + diet (clear liquids), No complaints, No chest pain, No bowel movement, No nausea, No vomiting preoperative abdominal pain has resolved now with just incisional pain Objective Vital Signs: Date Time Temp Pulse Resp B/P (MAP) Pulse Ox O2 Delivery O2 Flow Rate FiO2 06/29/17 08:00 Room Air 06/29/17 07:33 36.8 78 18 98/60 (73) 94 06/29/17 06:59 77 16 96 Room Air 06/29/17 04:00 Room Air 06/29/17 03:19 36.2 80 15 87/56 (66) 92 Room Air 06/29/17 00:00 Room Air 06/29/17 00:00 36.3 85 18 91/59 (70) 92 Room Air 06/28/17 20:00 97 Room Air 06/28/17 19:55 36.7 94 18 96/53 (67) 96 Nasal Cannula 1.0 06/28/17 19:17 93 16 93 Nasal Cannula 1.0 06/28/17 17:09 86 06/28/17 17:00 36.5 86 16 106/71 (83) 96 Nasal Cannula 3.0 06/28/17 16:30 36.4 86 18 102/65 (77) 92 Nasal Cannula 3.0 06/28/17 16:15 36.5 75 16 102/60 (74) 94 Nasal Cannula 3.0 06/28/17 16:00 36.5 76 16 101/59 (73) 93 Nasal Cannula 3.0 06/28/17 16:00 Nasal Cannula 3.0 06/28/17 15:49 37 06/28/17 15:46 103/59 06/28/17 15:45 78 15 94 06/28/17 15:45 79 15 06/28/17 15:41 105/52 06/28/17 15:40 75 21 96 06/28/17 15:40 80 21 06/28/17 15:36 117/63 06/28/17 15:35 74 22 96 06/28/17 15:35 80 22 06/28/17 15:31 113/63 06/28/17 15:30 73 12 06/28/17 15:30 72 12 95 06/28/17 15:26 117/61 06/28/17 15:25 81 13 06/28/17 15:25 71 13 96 06/28/17 15:21 122/68 06/28/17 15:20 81 19 98 06/28/17 15:20 84 19 06/28/17 15:18 125/67 06/28/17 15:15 37.1 83 14 125/67 97 Nasal Cannula 3 06/28/17 12:00 Room Air General Appearance: WD/WN, no apparent distress Head: normocephalic, atraumatic Neck: trachea midline Respiratory/Chest: no respiratory distress, no accessory muscle use Abdomen: non distended, soft, no organomegaly, no pulsatile mass, + tenderness (at incision sites and RUQ appropriate post op, no rigidity or guarding) Incision(s): clean, dry, intact (dressings) Laboratory Results: Results Past 24 Hours Test 06/29/17 04:10 Range/Units White Blood Count 10.84 4.8-10.8 K/uL Red Blood Count 4.78 4.2-5.4 M/uL Hemoglobin 14.2 12.0-16.0 g/dL Hematocrit 42.4 37-47 % Mean Corpuscular Volume 88.7 80-100 fL Mean Corpuscular Hemoglobin 29.7 25-34 pg Mean Corpuscular Hemoglobin Concent 33.5 32-36 g/dl RDW Standard Deviation 48.5 36.4-46.3 fL RDW Coefficient of Variation 15.0 11.5-14.5 % Platelet Count 282 130-400 K/uL Mean Platelet Volume 9.9 7.4-10.4 fL Prothrombin Time 11.5 9.0-12.0 SECONDS Prothromb Time International Ratio 1.1 0.9-1.1 Sodium Level 140 136-145 mmol/L Potassium Level 4.0 3.5-5.1 mmol/L Chloride Level 109 98-107 mmol/L Carbon Dioxide Level 23 21-32 mmol/L Anion Gap 8.0 3-11 mmol/L Blood Urea Nitrogen 15 7-18 mg/dl Creatinine 0.94 0.60-1.20 mg/dl Est Creatinine Clear Calc Drug Dose 41.3 ml/min Estimated GFR () 65.9 Estimated GFR (Non- 56.9 BUN/Creatinine Ratio 15.9 10-20 Random Glucose 119 70-99 mg/dl Calcium Level 8.1 8.5-10.1 mg/dl Magnesium Level 2.4 1.8-2.4 mg/dl Total Bilirubin 0.5 0.2-1 mg/dl Direct Bilirubin 0.1 0-0.2 mg/dl Aspartate Amino Transf (AST/SGOT) 15 15-37 U/L Alanine Aminotransferase (ALT/SGPT) 11 12-78 U/L Alkaline Phosphatase 60 45-117 U/L Total Protein 6.6 6.4-8.2 gm/dl Albumin 2.6 3.4-5.0 gm/dl Globulin 4.0 2.5-4.0 gm/dl Albumin/Globulin Ratio 0.7 0.9-2 Assessment & Plan POD # 1 s/p laparoscopic cholecystectomy -afebrile post op - pain controlled - LFTS and bilirubin wnl - tolerating diet Plan: okay to discharge home discharge instructions reviewed f/u surgical office 1 week no need for further antibiotics Dr. Weathers has seen patient, agrees with above
--- NOTE | 2017-06-29 11:27 | Discharge Summary ---
Discharge Summary Date of Service June 29, 2017. Discharge Summary Admission Date: June 27, 2017 at 11:58 Discharge Date: June 29, 2017 Discharge Disposition: Home Principal Diagnosis: Acute Cholecystitis S/P Laparoscopic Cholecystectomy Procedures: Gall bladdewr USD: 1. Cholelithiasis with gallbladder wall thickening and reported right upper quadrant tenderness is noted without pericholecystic fluid. Correlate clinically to exclude acute cholecystitis. 2. Mild dilation of the common bile duct, 1.0 cm without obstructing biliary stone or lesion identified. 3. Redemonstration of multiple hepatic cysts. CXR: Minimal bibasilar atelectatic and/or developing infiltrative change. Mild emphysematous change. ECHO: No significant change compared of 03/20/17. * Normal LV chamber size with moderate concentric LVH. * Normal LV systolic function, EF 60-65%. * No segmental left ventricular wall motion abnormalities are noted. * Severe left atrial enlargement denotes the presence of diastolic dysfunction. * The aortic valve is not well visualized. Severely calcified aortic valve. Mild aortic regurgitation. Mild to moderate valvular aortic stenosis. * There is severe mitral annular calcification. There is moderate mitral regurgitation. * Mild tricuspid regurgitation. * Pulmonary hypertension is present with a PASP of 44 mmHG assuming a RA pressure of 3 mmHg. Consultations: Cardiology, Surgery Pending Studies/Follow-Up: Follow up with your PCP on 07/04/17 at 9:45 Am Follow up with your Surgeon in 1-2 weeks, please call office at [phone] to make an appointment Follow up with your Coumadin clinic for coumadin dosing as advised Seek immediate medical attention if your symptoms reoccur or worsen [place] Recommendations Date of Service June 29, 2017. [place] Recommendations No heavy lifting over 20 pounds for 3 weeks No strenuous activity until cleared by surgeon No submerging incisions underwater for 2 weeks (no bathing, swimming, or hot tubs) No driving while taking narcotic pain medication or until you are pain free You may shower in 3 days. Sponge bath and wash hair in meantime. Keep dressing clean and dry. After 3 days you may shower and remove outer dressings. Leave steri strips on incisions for 7 days and then remove. They may fall off on their own that is okay. Walking and light activity is encouraged to prevent blood clots from forming You will be given narcotic pain medication, as needed for moderate to severe pain. Take as direct. This medication may cause drowsiness and constipation. To combat constipation: -Drink Plenty of water daily - Take OTC stool softener such as Colace while taking narcotic pain medication - May take gentle laxative or prune juice if needed You may take extra strength Tylenol or Ibuprofen (with food) as needed for mild pain. If you kev till taking Percocet, take Ibuprofen in between doses for mild pain as Percocet has Tylenol in it. Follow-up in surgical office in 1-2 weeks, please call office at [phone] to make an appointment Medication Reconciliation New Medications: Oxycodone/Acetaminophen 5MG/325MG (Percocet 5MG/325MG) Tab 1 TABLET PO Q6H PRN for Pain for 5 Days, #20 TAB Continued Medications: Acetaminophen (Acetaminophen) 325 Mg Tab 650 MG PO Q4 PRN for Pain or Fever Albuterol Hfa (Ventolin Hfa) 200 Puffs/87798 Mcg Aers 2-4 PUFFS INH Q6H PRN for SOB/Wheezing, #1 INHALER Buspirone Hcl (Buspirone Hcl) 10 Mg Tab 10 MG PO BID, TAB Digoxin (Digoxin) 0.125 Mg Tab 0.125 MG PO DAILY Diltiazem Hcl Coated Beads (Cardizem Cd) 240 Mg Cap 240 MG PO DAILY, CAP Docusate Sodium (Colace) 100 Mg Cap 100 MG PO DAILY Formoterol Fumarate (Perforomist) 20 Mcg/2 Ml Nebu 2 ML INH BID mix with Budesonide Ipratropium-Albuterol (Duoneb) 3 Ml Nebu 1 TREATMENT INH Q4H PRN for SOB/Wheezing, INHA Probiotic Product (Probiotic) 1 Cap Cap 1 CAP PO DAILY Warfarin Sodium (Warfarin Sodium) 2 Mg Tab 2 MG PO DAILY Admission Information HPI (per Admitting provider): This is a 82-year-old female with complex past medical history of severe emphysema, chronic A. fib on Coumadin, valvular heart disease with moderate aortic stenosis, moderate mitral regurgitation, mild mitral stenosis Patient presents today with complaint of right upper quadrant pain Started last night, associated with nausea no vomiting No fever or chills Lab work shows leukocytosis of white count 16 Patient is on Coumadin INR more than 4 Gallbladder ultrasound shows cholelithiasis with gallbladder wall thickening without pericholecystic fluid Patient admitted to telemetry Surgery consult requested Physical Exam (per Admitting): General Appearance: no apparent distress Head: normocephalic, atraumatic Eyes: normal inspection, PERRL, EOMI, sclerae normal Neck: thyroid normal, no JVD, no carotid bruits, trachea midline Respiratory/Chest: chest non-tender, lungs clear, normal breath sounds, no respiratory distress Cardiovascular: + irregularly irregular Abdomen/GI: soft, + tenderness (Right upper quadrant tenderness) Extremities/Musculoskelatal: no calf tenderness, normal capillary refill, no pedal edema Neurologic/Psych: no motor/sensory deficits, alert, normal reflexes, oriented x 3 Hospital Course Acute Cholecystitis: S/P Laparoscopic Cholecystectomy POD #1 Leukocytosis improved Continue Zosyn Blood culture:No growth to date Appreciate Surgery Input Pain is controlled Valvular Heart Disease: Moderate Aortic Stenosis, mild AR Cardiac stress test on February 2017: Negative for stress-induced ischemia ECHO as below Appreciate Cardiology Input Advanced COPD Follows with pulmonology at [facility] [place] H/O heavy smoking quit in 2014 No signs of exacerbation continue home inhalers Nebs PRN Chronic Afib: rate controlled Continue digoxin, cardizem On chronic anticoagulation on Coumadin Resume coumadin today Monitor INR:1.1 today Coagulopathy: INR: 4.5 on presentation S/P Vit K Monitor INR Code Status: Full Code DVT Px: SCDs Also on coumadin Disposition: Plan to discharge home today if cleared by surgery Follow up with your PCP on 07/04/17 at 9:45 Am Follow up with your Surgeon in 1-2 weeks, please call office at to make an appointment Follow up with your Coumadin clinic for Coumadin dosing as advised Seek immediate medical attention if your symptoms reoccur or worsen PROCEDURES: ECHO: No significant change compared of 03/20/17. * Normal LV chamber size with moderate concentric LVH. * Normal LV systolic function, EF 60-65%. * No segmental left ventricular wall motion abnormalities are noted. * Severe left atrial enlargement denotes the presence of diastolic dysfunction. * The aortic valve is not well visualized. Severely calcified aortic valve. Mild aortic regurgitation. Mild to moderate valvular aortic stenosis. * There is severe mitral annular calcification. There is moderate mitral regurgitation. * Mild tricuspid regurgitation. * Pulmonary hypertension is present with a PASP of 44 mmHG assuming a RA pressure of 3 mmHg. Total time spent on discharge = 34 minutes This includes examination of the patient, discharge planning, medication reconciliation, and communication with other providers. Discharge Instructions Discharge Instructions Date of Service June 29, 2017. Admission Reason for Admission: Acute Cholecystitis, Supratherapeutic Inr Discharge Discharge Diagnosis / Problem: Acute Cholecystitis S/P Laparoscopic Cholecystectomy Discharge Goals Goal(s): Decrease discomfort, Improve function Activity Recommendations Activity Limitations: resume your previous activity Exercise/Sports Limitations: as tolerated . Instructions / Follow-Up Instructions / Follow-Up Follow up with your PCP on 07/04/17 at 9:45 Am Follow up with your Surgeon in 1-2 weeks, please call office at to make an appointment Follow up with your Coumadin clinic for coumadin dosing as advised Seek immediate medical attention if your symptoms reoccur or worsen [place] Recommendations Date of Service June 29, 2017. [place] Recommendations No heavy lifting over 20 pounds for 3 weeks No strenuous activity until cleared by surgeon No submerging incisions underwater for 2 weeks (no bathing, swimming, or hot tubs) No driving while taking narcotic pain medication or until you are pain free You may shower in 3 days. Sponge bath and wash hair in meantime. Keep dressing clean and dry. After 3 days you may shower and remove outer dressings. Leave steri strips on incisions for 7 days and then remove. They may fall off on their own that is okay. Walking and light activity is encouraged to prevent blood clots from forming You will be given narcotic pain medication, as needed for moderate to severe pain. Take as direct. This medication may cause drowsiness and constipation. To combat constipation: -Drink Plenty of water daily - Take OTC stool softener such as Colace while taking narcotic pain medication - May take gentle laxative or prune juice if needed You may take extra strength Tylenol or Ibuprofen (with food) as needed for mild pain. If you kev till taking Percocet, take Ibuprofen in between doses for mild pain as Percocet has Tylenol in it. Follow-up in surgical office in 1-2 weeks, please call office at [phone] to make an appointment Current Hospital Diet Patient's current hospital diet: Clear Liquid Diet Discharge Diet Recommended Diet: AHA Diet (Heart Healthy), Low Fat Diet Procedures Procedures Performed: Laparoscopic Cholecystectomy Pending Studies Studies pending at discharge: no Medical Emergencies . Who to Call and When: Medical Emergencies: If at any time you feel your situation is an emergency, please call 911 immediately. . Non-Emergent Contact Non-Emergency issues call your: Primary Care Provider, Surgeon Call Non-Emergent contact if: you have a fever, your pain is not controlled, your pain is worsening, your pain is unusual for you, your pain is concerning you, wound has increased drainage, wound has increased redness, wound has increased pain, you have any medication questions Seek immediate medical attention if your symptoms reoccur or worsen . . "Provider Documentation" section prepared by Antoine Lamb. . [place] Recommendations [place] Recommendations: No heavy lifting over 20 pounds for 3 weeks No strenuous activity until cleared by surgeon No submerging incisions underwater for 2 weeks (no bathing, swimming, or hot tubs) No driving while taking narcotic pain medication or until you are pain free You may shower in 3 days. Sponge bath and wash hair in meantime. Keep dressing clean and dry. After 3 days you may shower and remove outer dressings. Leave steri strips on incisions for 7 days and then remove. They may fall off on their own that is okay. Walking and light activity is encouraged to prevent blood clots from forming You will be given narcotic pain medication, as needed for moderate to severe pain. Take as direct. This medication may cause drowsiness and constipation. To combat constipation: -Drink Plenty of water daily - Take OTC stool softener such as Colace while taking narcotic pain medication - May take gentle laxative or prune juice if needed You may take extra strength Tylenol or Ibuprofen (with food) as needed for mild pain. If you kev till taking Percocet, take Ibuprofen in between doses for mild pain as Percocet has Tylenol in it. Follow-up in surgical office in 1-2 weeks, please call office at [phone] to make an appointment <Electronically signed by Antoine Lamb MD> Signed: 06/29/17 [id number] Signed: The status of this report is Signed * If report status is Draft, the document has not been finalized by the responsible provider.
[2017-06-29 11:28] VITALS: BP 104/63; PULSE 81; TEMP 36.6; O2SAT 95
[2017-06-29 12:10] VITALS: BP 104/63; PULSE 81; TEMP 36.6; O2SAT 95
[2017-06-29] MEDS ORDERED: WARFARIN SOD 2 MG TAB PO SCH (16:00)
== END 2017-06-29 13:00 | disposition home or self-care (01) | DRG 418 ==
LOC: C.EDB 08:25 → C.2E 11:58 → ENRESERV 13:06 → CANBEDREQ 14:40
PROVIDERS: ADMIT Hospitalist; ATTEND Internal Medicine
PROC: 0FT44ZZ Resection of Gallbladder, Percutaneous Endoscopic Approach (ICD-10-PCS; principal; 2017-06-28 10:00)
DX: K80.00 Calculus of gallbladder with acute cholecystitis without obstruction (principal); D68.32 Hemorrhagic disorder due to extrinsic circulating anticoagulants; T45.515A Adverse effect of anticoagulants, initial encounter; I08.0 Rheumatic disorders of both mitral and aortic valves; J43.9 Emphysema, unspecified; I48.2 Chronic atrial fibrillation; I10 Essential (primary) hypertension; I27.20 Pulmonary hypertension, unspecified; Z87.09 Personal history of other diseases of the respiratory system; Z87.891 Personal history of nicotine dependence; Z86.73 Personal history of transient ischemic attack (TIA), and cerebral infarction without residual deficits; Z79.01 Long term (current) use of anticoagulants; Z79.899 Other long term (current) drug therapy; Z85.41 Personal history of malignant neoplasm of cervix uteri; Z90.710 Acquired absence of both cervix and uterus; Z90.49 Acquired absence of other specified parts of digestive tract; Z96.643 Presence of artificial hip joint, bilateral; Z98.49 Cataract extraction status, unspecified eye

== ENCOUNTER → 2017-07-05 | Outpatient (CLI) | payer OTHER ==
[~2017-07-05] MED LIST changes: +ACET-1346 PO; -ALBUAER19 INH; -ASPEC81 PO; -BUDE0.5S INH; -DILT1CAP PO; +DILT240C57 PO; +LNX125 PO; -LNX25 PO; +MISCCAP80 PO; +OXYC-57 PO; -PRED10TA PO; -TYL325X PO; -VNCS125 PO; +VNTHFA/IN INH
--- NOTE | 2017-07-05 14:24 | DIAGNOSTIC IMAGING REPORT ---
BONE SCAN 3 PHASE LIMITED CLINICAL HISTORY: 82 years-old Female presenting with LEFT HIP PAIN M25.552. TECHNIQUE: Following the IV administration of 27.4 mCi of technetium 99m MDP, three-phase bone scan of the hips was performed. Anterior flow images as well as anterior and posterior blood pool phase images were acquired. Bone phase imaging of hips was performed at three hours in multiple obliquities. COMPARISON: Plain radiograph of the abdomen including the hips from 2015. FINDINGS: On initial flow imaging, symmetric radiotracer within the aortoiliac vasculature. No focal hyperemia apart from radiotracer activity in the region of the gluteal fold. On subsequent blood pool phase imaging, photopenia in the region of the bilateral hips reflective of total bilateral hip arthroplasty. No periarticular radiotracer activity. Again, gluteal fold activity evident. On bone phase imaging, no periarticular radiotracer activity. Expected excretion of contrast in the urinary bladder. Previously noted gluteal for activity is normal and the present. IMPRESSION: Total bilateral hip arthroplasty without evidence of loosening or infection. Expected postsurgical appearance. Electronically signed by: Pramod Phoenix M.D. 07/05/2017 2:23 PM Dictated Date/Time: 07/05/2017 2:12 PM
== END | disposition home or self-care (01) ==
LOC: C.NUCL 09:46
PROVIDERS: ATTEND Orthopaedic Surgery
DX: M25.552 Pain in left hip (principal); Z96.643 Presence of artificial hip joint, bilateral

== ENCOUNTER 2018-03-19 07:34 | Inpatient (IN) ==
--- NOTE | 2018-03-05 10:38 | Anesthesiology Consultation ---
Date of Service March 05, 2018 Assessment & Plan (1) Encounter for pre-operative examination: Plan: - Check coags AM DOS; Warfarin instructions per surgeon/prescriber. - Moderate aortic stenosis per 02/2018 ECHO. Patient anxious RE: SAB. Discussed SAB vs. GA. Advised patient this will be discussed further AM DOS - Cardio= 03/13/18= "high risk for perioperative complications.. do not believe the further cardiac evaluation will reduce her risk of perioperative complications. She notes life limiting hip issues and accepts the associated risks." (Surgeon aware of cardio recommendations) - PCP= 03/14/18= "acceptable surgical candidate." Chart Review Chart Review: Acceptable Risk for Surgery and Patient seen in Pre Admission Testing Consults Requested none Teaching & Discussion Pre-Anesthesia Teaching/Discussion Notes: Instructed NPO after midnight before surgery,except medications with 15 cc of water. Medication instructions provided according to the PAT guidelines. History Surgery Operation Date: 03/19/18 09:55 Proposed Procedures p Left Total Hip Revision Arthroplasty Possible Head and Liner Exchange, Possible Acetabular Component Revision - Jose Carcamo DO Height/Weight Height: 5 ft 6 in Weight: 50 kg Allergies Allergy/AdvReac Type Severity Reaction Status Date / Time No Known Allergies Allergy Verified 03/19/18 08:18 Medications Home Medications Medication Instructions Recorded Confirmed Last Taken Lactobacillus acidophilus 1 cap PO BID 01/19/18 03/19/18 03/18/18 18:00 [Probiotic] albuterol sulfate 1 vial INHALATION Q4H PRN 01/19/18 03/19/18 03/19/18 06:00 albuterol sulfate [ProAir HFA] 2 - 4 puff INHALATION Q6H PRN 01/19/18 02/27/18 Unknown buspirone 10 mg PO QAM 01/19/18 03/19/18 03/18/18 17:00 digoxin 0.5 tab PO QPM 01/19/18 03/19/18 03/18/18 21:00 diltiazem HCl 240 mg PO QAM 01/19/18 03/19/18 03/19/18 06:00 fluticasone-vilanterol [Breo 1 inh INHALATION QAM 01/19/18 03/19/18 03/19/18 06: 00 Ellipta] tiotropium bromide [Spiriva with 1 inh INHALATION QPM 01/19/18 03/19/18 21:00 HandiHaler] warfarin [Jantoven] 1 mg PO 2XWK 01/19/18 03/19/18 03/15/18 17:00 warfarin [Jantoven] 2 mg PO 5XWK 01/19/18 03/19/18 03/16/18 17:00 Active Medications Generic Name Dose Route Start Last Admin Trade Name Gabriel PRN Reason Stop Dose Admin Acetaminophen 1,000 mg 03/19/18 06:00 03/19/18 08:43 Tylenol PO 03/19/18 18:00 1,000 mg PREOP BARNEY Administration Celecoxib 200 mg 03/19/18 06:00 03/19/18 08:43 Celebrex PO 03/19/18 18:00 200 mg PREOP BARNEY Administration Dexamethasone 8 mg 03/19/18 06:00 03/19/18 08:42 Decadron PO 03/19/18 18:00 8 mg PREOP BARNEY Administration Famotidine 20 mg 03/19/18 06:00 03/19/18 08:43 Pepcid PO 03/19/18 18:00 20 mg PREOP BARNEY Administration Gabapentin 300 mg 03/19/18 06:00 03/19/18 08:43 Neurontin PO 03/19/18 18:00 300 mg PREOP BARNEY Administration Lactated Ringer's 1,000 mls @ 999 mls/hr 03/19/18 06:00 03/19/18 08:13 Lr IV 03/19/18 18:00 999 mls/hr .Q1H1M BARNEY Administration Metoclopramide HCl 10 mg 03/19/18 06:00 03/19/18 08:43 Reglan PO 03/19/18 18:00 10 mg PREOP BARNEY Administration Past Medical History Medical History Chronic obstructive pulmonary disease Afib ON WARFARIN Cancer UTERINE CANCER Osteoarthritis Valvular heart disease Moderate aortic stenosis (GILLIAN 0.96cm2, mean gradient 11.9 mmhg), Moderate AR/MR /TR per 02/2018 ECHO Past Family History Family History Mother Family history of diabetes mellitus Brother Family history of diabetes mellitus Father Family history of esophageal cancer Past Surgical History Surgical History History of cardioversion History of cataract surgery B/L History of cholecystectomy History of colonoscopy History of dilatation and curettage History of esophagogastroduodenoscopy (EGD) History of left hip replacement B/L History of tooth extraction History of total hysterectomy Past Anesthesia History No Hx of Anesthesia Complications Sister- Perioperative hypotension/HR-- no further details History of PONV No Motion Sickness Screening History of Motion Sickness: No Social History Smoking Status: Former smoker Do You Dip or Chew Tobacco: No Smoking End Date: QUIT 3 YEARS AGO; 1PPD X 50+ YEARS AGO Hx Alcohol Use: No Hx Substance Use: No substance use type: does not use Exercise / Class Metabolic Activity III < 4 Walking/Shop/Light housework Review of Systems Patient denies chest pain, shortness of breath, cough, wheezing, palpitations. Physical Exam Vital Signs Last Vital Signs Temp 36.8 C 03/19/18 08:10 Pulse 84 03/19/18 08:10 Resp 18 03/19/18 08:10 BP 129/88 03/19/18 08:10 Pulse Ox 95 03/19/18 08:10 VITALS BP 98/45 (with pediatric setting)-- patient "always low" per patient P 92 TEMP 97.7 SP02 94%RA RESP 16 Full neck and c-spine range of motion. Full TMJ range of motion. TMD 2.5 finger breaths Mallampati Score 2 Dentition: full dentures upper/lower; edentulous Lungs: clear throughout to auscultation Cardiac: regular rate and rhythm, Distant heart sounds Spine: normal Carotid arteries: negative bruit Extremities: no edema Testing Electrocardiogram Date: 03/05/18 Findings: + AFIB @ (67) Chest X-Ray Date: 02/20/18 Findings: + NAD Emphysematous. Echocardiogram Date: 03/06/18 EF 65-69%. No RWMA. Moderate aortic stenosis (GILLIAN 0.96cm2, mean gradient 11.9 mmhg). Moderate AR/MR/TR. Severe mitral annular calcification. Stress Test Date: 03/20/17 Type: DSE Stress ECHO negative for inducible ischemia. Rest EKG with a. fib with elevated ventricular response rate. Uninterpretable stress EKG due to LVH with strain on rest EKG. LVEF 65-69%. Severe AV calcifications. Moderate aortic stenosis (GILLIAN V ,D 1.1cm2, mean gradient 11.1mmhg). Severe mitral annular calcification. Moderate MR. Severe LAE. Mild TR. 120%MPHR Laboratory Results 03/05/18 10:50 Blood Type O Positive 03/19/18 08:29 Antibody Screen NEGATIVE 03/19/18 08: PT 11.2 Seconds (9.0-12.0) 03/19/18 08: INR 1.1 (0.9-1.1) 03/19/18 08: APTT 26.7 Seconds (21.0-31.0) 03/19/18 08: Hemoglobin A1c 5.3 % (4.5-5.6) 03/05/18 10:50 Urine Color Yellow 03/05/18 10:50 Urine Appearance Clear (Clear) 03/05/18 10:50 Urine pH 5.0 (4.5-7.5) 03/05/18 10:50 Ur Specific R[place]ston 1.018 (1.000-1.030) 03/05/18 10:50 Urine Protein Negative (Negative) 03/05/18 10:50 Urine Glucose (UA) Negative (Negative) 03/05/18 10:50 Urine Ketones Negative (Negative) 03/05/18 10:50 Urine Nitrite Negative (Negative) 03/05/18 10:50 Ur Leukocyte Esterase Trace (Negative) H 03/05/18 10:50 Urine WBC (Auto) 1-5 /hpf (0-5) 03/05/18 10:50 Urine RBC (Auto) 0-4 /hpf (0-4) 03/05/18 10:50 U Hyaline Cast (Auto) 1-5 /lpf (0-5) 03/05/18 10:50 U Epithel Cells (Auto) >30 /lpf (0-5) H 03/05/18 10:50 Urine Bacteria (Auto) Negative (Negative) 03/05/18 10:50 01/19/18 SODIUM 142 POTASSIUM 3.8 CHLORIDE 110 CO2 25 BUN 15 CREATININE 0.86 GLUCOSE 84
--- NOTE | 2018-03-05 10:46 | PAT Medication Instructions ---
Medication Instructions Date of Service March 05, 2018 Home Medications Lactobacillus acidophilus 1 cap PO BID albuterol sulfate 1 vial INHALATION Q4H PRN albuterol sulfate [ProAir HFA] 2 - 4 puff INHALATION Q6H PRN buspirone 10 mg PO QAM digoxin 0.5 tab PO QPM diltiazem HCl 240 mg PO QAM fluticasone-vilanterol [Breo 1 inh INHALATION QAM tiotropium bromide [Spiriva with 1 inh INHALATION QPM warfarin [Jantoven] 1 mg PO 2XWK warfarin [Jantoven] 2 mg PO 5XWK ASK your prescriber and surgeon warfarin [Jantoven] 1 mg PO 2XWK warfarin [Jantoven] 2 mg PO 5XWK DO NOT take the morning of surgery Lactobacillus acidophilus 1 cap PO BID Take morning of surgery With a small sip of water, OTHERWISE NOTHING TO EAT OR DRINK AFTER MIDNIGHT: albuterol sulfate 1 vial INHALATION Q4H PRN (if needed) albuterol sulfate [ProAir HFA] 2 - 4 puff INHALATION Q6H PRN (use if needed; please bring with you to hospital day of surgery if possible) buspirone 10 mg PO QAM diltiazem HCl 240 mg PO QAM fluticasone-vilanterol [Breo 1 inh INHALATION QAM Take evening before surgery Lactobacillus acidophilus 1 cap PO BID albuterol sulfate 1 vial INHALATION Q4H PRN (if needed) albuterol sulfate [ProAir HFA] 2 - 4 puff INHALATION Q6H PRN (if needed) digoxin 0.5 tab PO QPM tiotropium bromide [Spiriva with 1 inh INHALATION QPM Other Notes If you have any questions please call us at [phone] or [phone] or [phone] or [phone]
[2018-03-05 11:13] LABS: Appearance Urine Clear (Clear); Bacteria Urine Automated Negative (Negative); Bilirubin Urine Negative (Negative); Color Urine Yellow; Epithelial Cell Urine Auto >30 /lpf (0-5); Glucose Urine UA Negative (Negative); Ketones Urine Negative (Negative); Leukocyte Esterase Urine Trace (Negative); Nitrite Urine Negative (Negative); Protein Urine Negative (Negative); Specific Gravity Urine 1.018 (1.000-1.030); Urobilinogen Urine Negative (Negative)
[2018-03-05 11:18] LABS: Basophils # (auto) 0.04 K/uL (0-0.2); Basophils % (auto) 0.4 %; Eosinophils # (auto) 0.23 K/uL (0-0.5); Eosinophils % (auto) 2.3 %; Hematocrit (blood only) 45.6 % (37-47); Hemoglobin 14.8 g/dL (12.0-16.0); Immature Granulocytes # (auto) 0.03 K/uL (0.00-0.02); Immature Granulocytes % (auto) 0.3 %; Lymphocytes # (auto) 2.08 K/uL (1.2-3.4); Lymphocytes % (auto) 20.4 %; Mean Corpuscular Hgb Conc 32.5 g/dL (32-36); Mean Corpuscular Volume 93.6 fL (80-100); Mean Platelet Volume 10.3 fL (7.4-10.4); Monocytes # (auto) 0.59 K/uL (0.11-0.59); Monocytes % (auto) 5.8 %; Neutrophils # (auto) 7.21 K/uL (1.4-6.5); Neutrophils % (auto) 70.8 %; Platelet Count 264 K/uL (130-400); RDW Standard Deviation 51.8 fL (36.4-46.3); Red Blood Count 4.87 M/uL (4.2-5.4); White Blood Count 10.18 K/uL (4.8-10.8)
[2018-03-05 11:19] LABS: INR 3.2 (0.9-1.1); Partial Thromboplastin Ratio 1.5; Partial Thromboplastin Time 38.3 Seconds (21.0-31.0); Prothrombin Time 29.9 Seconds (9.0-12.0)
[2018-03-05 11:37] LABS: Estimated Average Glucose 105 mg/dl
--- NOTE | 2018-03-18 16:11 | History & Physical Report ---
Date of Service March 18, 2018 Assessment & Plan (1) Failed total hip arthroplasty with dislocation: I have indicated the patient for revision left total hip replacement. The risks, benefits and complications of surgery were explained to the patient which include but not limited to infection, acute blood loss, DVT/PE, injury to nerves, vessels, bone, soft tissue, arthrofibrosis, chronic pain, failure of the prosthesis, hip dislocation, leg length discrepancy, need for additional surgery, cardiac and pulmonary events and . The patient wished to proceed with surgery and informed consent was obtained at this time. We will plan for lovenox bridge, restarting patients home coumadin post-operatively for DVT prophylaxis. Upon discharge the patient will be discharged home with home health services. Appropriate clearances by PCP, cardiology, pulmonary were obtained. History of Present Illness Chief Complaint: Left hip pain/instability Primary Care Provider: Durga Gandhi MD The patient is a 83 year old female who presents with complaints of recurrent hip instability with dislocation x 2, May 2017 and January 2018. The patient has failed conservative treatments which includes bracing, PT/HEP. The patient's pain and limited function have progressed to the point where they severely hinder their activities of daily living and they no longer tolerate exercise programs. They are requesting to proceed with revision total hip replacement surgery. Patient had bone scan and was worked up for infection and loosening which was negative. Allergies Allergy/AdvReac Type Severity Reaction Status Date / Time No Known Allergies Allergy Verified 03/19/18 08:18 Home Medications Home Medications Medication Instructions Recorded Confirmed Type Lactobacillus acidophilus 1 cap PO BID 01/19/18 03/19/18 History [Probiotic] albuterol sulfate 1 vial INHALATION Q4H PRN 01/19/18 03/19/18 History albuterol sulfate [ProAir HFA] 2 - 4 puff INHALATION Q6H PRN 01/19/18 02/27/18 History buspirone 10 mg PO QAM 01/19/18 03/19/18 History digoxin 0.5 tab PO QPM 01/19/18 03/19/18 History diltiazem HCl 240 mg PO QAM 01/19/18 03/19/18 History fluticasone-vilanterol [Breo 1 inh INHALATION QAM 01/19/18 03/19/18 History Ellipta] tiotropium bromide [Spiriva with 1 inh INHALATION QPM 01/19/18 03/19/18 History HandiHaler] warfarin [Jantoven] 1 mg PO 2XWK 01/19/18 03/19/18 History warfarin [Jantoven] 2 mg PO 5XWK 01/19/18 03/19/18 History Past Med/Surg History Medical History Chronic obstructive pulmonary disease Afib ON WARFARIN Cancer UTERINE CANCER Osteoarthritis Valvular heart disease Moderate aortic stenosis (GILLIAN 0.96cm2, mean gradient 11.9 mmhg), Moderate AR/MR /TR per 02/2018 ECHO Surgical History History of cardioversion History of cataract surgery B/L History of cholecystectomy History of colonoscopy History of dilatation and curettage History of esophagogastroduodenoscopy (EGD) History of left hip replacement B/L History of tooth extraction History of total hysterectomy Family History Mother Family history of diabetes mellitus Brother Family history of diabetes mellitus Father Family history of esophageal cancer Social History Current Living Situation: Spouse current occupational status: retired Other Information That Helps Us Care for You: No Feels Safe at Home: Yes Safety Concerns: Feels Safe At This Time Smoking Status: Former smoker Do You Dip or Chew Tobacco: No Smoking End Date: QUIT 3 YEARS AGO; 1PPD X 50+ YEARS AGO Hx Alcohol Use: No Hx Substance Use: No Beliefs That Will Affect Care: None Preferred Language: [place] Citizen Communication Ability: Effective Exercise Scientist Required: No Review of Systems All systems reviewed & are unremarkable except as noted in HPI & below Physical Exam 2 Physical Exam: LLE NVSI +EHL/FHL/TA/GS SILT grossly, +2 DP pulse, compartments soft NT, prior surgiacal scars cdi. Eyes: PERRL, conjunctivae normal, anicteric sclerae ENMT: external ear and nose normal, oropharynx normal Neck: trachea midline, no thyromegaly Respiratory: normal respiratory effort, lungs clear to auscultation Cardiovascular: RRR, no murmur, no edema Gastrointestinal (Abdomen): normal bowel sounds, soft, nontender, no hepatosplenomegaly Musculoskeletal: no cyanosis or clubbing, extremities motor strength 5/5 Skin: no rashes, warm and dry Neurologic: patellar DTR's 2+ bilat, sensation intact Psychiatric: A+Ox3, euthymic affect Lymphatic: no cervical or axillary lymphadenopathy Results & Data Diagnostic Findings XRs of the left hip demonstrates well aligned well fixed orthopedic prosthesis without fracture/dislocation
[~2018-03-19 07:34] MED LIST changes: -ACET-1346 PO; +ACETAMINOPHEN 500 MG TAB PO SCH; +BUPIVACAINE 0.5 % 5 MG/1 ML PF 10ML VIAL ONE; -BUSP-8 PO; +CEFAZOLIN 1000MG 1,000 MG/7.5 ML SYR IV SCH; +CeleBREX 200 MG CAP PO SCH; -DILT240C57 PO; -DOCU-94 PO; +FAMOTIDINE 20 MG TAB PO SCH; +GABAPENTIN 300 MG PO SCH; -IPRASOL4 INH; -LNX125 PO; +METOCLOPRAMIDE HCL 10 MG TABLET PO SCH; -MISCCAP80 PO; -OXYC-57 PO; -PRFINS INH; +ROPIVACAINE 0.5% HCL/PF 150 MG, BUPIVACAINE 0.5% MPF 30 ML, EPINEPHrine 30MG/30ML (OR U... INFIL SCH; +TRANEXAMIC ACID 1,000 MG **IV Intra-op IV SCH; +TRANEXAMIC ACID 1,000 MG **IV Pre-op IV SCH; -VNTHFA/IN INH; -WARF4TAB43 PO; +dexAMETHasone 4 MG TAB PO SCH
[2018-03-19] MEDS: LR 500ML BOLUS, THEN 15ML/HR IV SCH ×4 (08:13→16:38)
[2018-03-19 08:53] LABS: INR 1.1 (0.9-1.1); Partial Thromboplastin Time 26.7 Seconds (21.0-31.0); Prothrombin Time 11.2 Seconds (9.0-12.0)
[2018-03-19] MEDS ORDERED: ePHEDrine sulfate 50 MG/ML AMP IV PRN ×2 (09:32→10:06)
[2018-03-19] MEDS ORDERED: ATROPINE SULFATE 0.1 MG/ML 10ML SYR IV PRN ×2 (09:32→10:06)
[2018-03-19] MEDS ORDERED: BACITRACIN INJ 50,000 UNIT VIAL ONE (09:35)
[2018-03-19] MEDS ORDERED: POVIDONE-IODINE OP SOLN 30 ML BTL ONE (09:35)
[2018-03-19] MEDS ORDERED: ORTHO JOINT ANESTHETIC ONE (09:35)
--- NOTE | 2018-03-19 09:36 | History & Physical Bridge Note ---
Date of Service March 19, 2018 History & Physical Bridge Note I have examined the patient, reviewed the History & Physical and in the interval since the performance of the History & Physical I have noted the following changes of clinical significance: no changes noted
[2018-03-19] MEDS ORDERED: MIDAZOLAM HCL 1 MG/ML 2ML VIAL ONE ×2 (09:57→10:43)
[2018-03-19] MEDS ORDERED: fentaNYL citrate 100 MCG/2 ML VIAL ONE (09:57)
[2018-03-19] MEDS ORDERED: PROPOFOL IV EMULSION 10 MG/ML 20 ML VIAL IV ONE (09:57)
[2018-03-19] MEDS ORDERED: PHENYLEPHRINE HCL 10 MG/ML VIAL ONE (11:14)
--- NOTE | 2018-03-19 11:49 | Post Operative Brief Note ---
Immediate Post Op Note v1 Date of Surgery March 19, 2018 Pre & Post Diagnosis Operation Date: 03/19/18 09:55 Pre-Op Diagnosis: Presence of Artificial Hip Joint, Recurrent Dislocation Post-Op Diagnosis: Presence of Artificial Hip Joint, Recurrent Dislocation Procedure Operation Date: 03/19/18 09:55 Actual Procedures p Left Total Hip Revision Arthroplasty Possible Head and Liner Exchange, Possible Acetabular Component Revision - Jose Carcamo DO Surgeon Jose Carcamo DO Trade Show Specialist Al Kidd Estimated Blood Loss 85 Findings Consistent with Post-Op Diagnosis Fluids 1200 Specimens femoral head and liner Anesthesia Type Spinal Complications none Disposition Disposition: Recovery Room Overlapping Procedure I was present for: the critical portions of procedure. I was immediately available: during the entire case. Back up surgeon: was not required during procedure.
--- NOTE | 2018-03-19 12:11 | Operative Report ---
Post Operative Report Pre & Post Diagnosis Operation Date: 03/19/18 09:55 Pre-Op Diagnosis: Presence of Artificial Hip Joint, Recurrent Dislocation Post-Op Diagnosis: Presence of Artificial Hip Joint, Recurrent Dislocation Procedure Operation Date: 03/19/18 09:55 Actual Procedures p Left Total Hip Revision Arthroplasty Possible Head and Liner Exchange, Possible Acetabular Component Revision - Jose Carcamo DO Surgeon Jose Carcamo DO Appeals Referee Al Kidd Estimated Blood Loss 85 Findings Consistent with Post-Op Diagnosis Fluids 1200 Specimens femoral head and liner Anesthesia Type Spinal Complications none Disposition Disposition: Recovery Room Indications The patient is a 83-year-old pain with prior history of left total hip arthroplasty in 1998 who presents with significant pain, dysfunction and instability of the left hip over the last year with 2 prior hip dislocations the most recent January 2018. The patient has failed outpatient conservative treatments including anti-inflammatories, bracing and physical therapy. The patient was worked up pre-operatively for infection which was ruled out. I indicated the patient for a revision total hip arthroplasty, head and liner exchange and possible revision of the acetabular and femoral components. The risks and benefits were explained in detail which included but not limited to infection, bleeding, blood clot, damage to surrounding bone, nerves, vessels, soft tissue, hip dislocation, failure of the prosthesis, leg length discrepancy , need for additional surgery and . The patient agreed to proceed with replacement of the hip and informed consent was obtained. Appropriate clearances were obtained. Description of Procedure Following induction of adequate spinal anesthesia, the patient was transferred to the OR table and placed in lateral decubitus position with hip down. The left hip was prepped and draped in the typical sterile fashion, the prior incision was identified and a posterolateral/Serina-Langenbeck incision was made. Subcutaneous tissue was sharply dissected. Electrocautery was utilized for hemostasis. The fascia was incised throughout the length of the wound and retracted with the Charnley retractor. All retained suture from previous surgery was removed. The bursa was taken down and the short external rotators and capsule were identified and tagged with two #1 Vicryl sutures. The short external rotators and capsule were divided from the posterior aspect of the femur using electrocautery. Both external rotators and posterior capsule were swept posterior and protected, along with protecting the sciatic nerve. Total hip prosthesis was identified. Meticulous removal of intra-articular scar tissue was performed with bovie. The hip prosthesis was dislocated by flexion and internal rotation in a controlled manner. The femoral head was removed from the trunion, which was clean and was without signs of wear. The femoral stem stability assessed and found to be stable without signs of loosening. Next, exposure of the acetabulum was obtained. Additional scar tissue removal and debridement of the intra-articular soft tissue was performed. Utilizing the liner extraction tool the liner was removed. The polyethylene liner demonstrated superior wear. Acetabular cup stability was assessed and found to be stable and without signs of loosening. Next, a 36 x 52 degree trail liner was inserted and locked into place. A 36+7 femoral head was placed onto femoral stem. A trial reduction was carried out with a 36+7 mm femoral head. The trial reduction was stable in all degrees of rotation with no impingement. The hip was dislocated, trial components were removed and access to the acetabulum was re-established. The trial liner was removed and the cup was irrigated to ensure all debris was removed. A final 36 x 52 mm 20 degree acetabular liner was inserted and properly seated. Access to the proximal femur was once more gained and the final 36+7 mm femoral head was impacted into place and the hip was reduced. Range of motion was checked once again and found to be stable. The wound was copiously irrigated with sterile saline solution with bacitracin. The antoni-incisional soft tissue was injected utilizing [place] ortho mix which includes a combination of Ropivicaine 0.5% 150mg, Bupivicaine 0.5%/Epinephrine 1:200,000 30ml, Toradol 30mg, Dexamethasone 4mg, Ketamine 10mg, Clonidine 100mcg and NSS 30ml solution. The external rotators and capsule were repaired to the greater trochanter through bone tunnels using #5 FiberWire. The fascia was closed using #1 Vicryl, 0 V lock subcutaneous tissue was closed using 2-0 Vicryl, and skin was closed with 3-0 V- lock suture and Dermabond Prineo. Sterile dressings were applied which included desmond, 4x4s and tegaderm adhesive dressing. The patient tolerated the procedure well and was transported to PACU in stable condition. Due to the complex nature of the procedure, the entire surgery was performed with the operational assistance of Al Kidd PA-C. The actuarial assistant, under direct supervision, was involved in the actual performance of all aspects of the surgical procedure including patient positioning, hemostasis, tissue retraction, instrument management and wound closure. I attest to the content of the Intraoperative Record and any orders documented therein. Any exceptions are noted below.
--- NOTE | 2018-03-19 13:00 | XRay Report ---
XR hip 1V LT w pelvis CLINICAL HISTORY: IN PACU - A/P PELVIS and LATERAL HIP left postoperative COMPARISON: None. DISCUSSION: Anatomic alignment post total left hip arthroplasty. Good contact between prosthetic and underlying bone. Expected soft tissue postoperative change. Pre-existing total right hip arthroplasty . IMPRESSION: Total left hip arthroplasty/revision with alignment considered anatomic. The above report was generated using voice recognition software. It may contain grammatical, syntax or spelling errors. Electronically signed by: Otto Laboy M.D. 03/19/2018 12:59 PM
--- NOTE | 2018-03-19 14:39 | Anesthesiology Progress Note ---
Date of Service March 19, 2018 Anesthesia Post Procedure Vital Signs Vital Signs: Temp Pulse Pulse Resp BP BP Pulse Ox 03/19/18 14:10 72 21 96/55 L 97 03/19/18 14:05 72 14 98/56 L 100 03/19/18 14:00 69 15 93/49 L 99 03/19/18 13:56 70 14 82/52 L 99 03/19/18 13:55 76 16 99 03/19/18 13:50 69 17 87/47 L 99 03/19/18 13:46 67 19 92/46 L 99 03/19/18 13:45 59 L 14 99 03/19/18 13:41 69 14 93/54 L 99 03/19/18 13:40 72 18 99 03/19/18 13:35 72 14 90/56 L 99 03/19/18 13:30 74 13 88/53 L 98 03/19/18 13:25 68 15 91/51 L 96 03/19/18 13:21 70 17 97/45 L 96 03/19/18 13:20 74 20 96 03/19/18 13:18 73 15 89/48 L 96 03/19/18 13:16 71 15 89/50 L 97 03/19/18 13:15 68 19 98 03/19/18 13:11 60 16 98/46 L 99 03/19/18 13:10 63 16 98 03/19/18 13:05 70 18 98/55 L 99 03/19/18 13:01 69 16 96/58 L 100 03/19/18 13:00 62 16 98 03/19/18 12:57 72 14 99 03/19/18 12:56 70 15 96/59 L 99 03/19/18 12:55 76 18 100 03/19/18 12:51 73 16 94/53 L 99 03/19/18 12:50 72 15 100 03/19/18 12:45 71 15 92/59 L 97 03/19/18 12:40 69 17 85/55 L 99 03/19/18 12:37 77 19 92/54 L 100 03/19/18 12:36 65 25 H 89/47 L 98 03/19/18 12:35 75 18 93/54 L 99 03/19/18 12:30 82 18 89/54 L 100 01/29/19 12:26 36.5 C 74 78 14 94/55 L 87/57 L 100 03/19/18 12:25 73 23 100 03/19/18 12:20 81 14 98/57 L 100 03/19/18 12:17 75 17 97/60 L 99 03/19/18 12:16 79 18 98/56 L 100 03/19/18 12:15 98 03/19/18 08:10 36.8 C 84 18 129/88 95 Notes Mental Status: see notes below (Pt has been stable post op. Somnolent but responds to verbal.) Patient Amnestic to Procedure: Yes Nausea / Vomiting: adequately controlled Pain: adequately controlled Airway Patency, RR, SpO2: stable & adequate BP & HR: stable & adequate Hydration State: stable & adequate Anesthetic Complications: no major complications apparent Notes: May benefit from telemetry admission for observation. Will discuss with surgery
[2018-03-19] MEDS ORDERED: ALBUTEROL 0.083% NEBU SOLN 3 ML VIAL INH PRN (15:39)
[2018-03-19] MEDS ORDERED: ONDANSETRON INJ 2 MG/ML 2 ML VIAL IV PRN (15:39)
[2018-03-19] MEDS ORDERED: SODIUM CHLORIDE 0.9% 1000ML 1,000 ML IV SCH (15:39)
[2018-03-19] MEDS ORDERED: METOCLOPRAMIDE HCL INJ 5 MG/ML 2 ML VIAL IV PRN (15:39)
[2018-03-19] MEDS ORDERED: MAGNESIUM HYDROXIDE SUSP 30 ML UDC PO PRN (15:39)
[2018-03-19] MEDS ORDERED: NALOXONE HCL 0.4 MG/1 ML VIAL/CARP IV PRN (15:39)
[2018-03-19] MEDS ORDERED: BISACODYL 10 MG SUPP PR PRN (15:39)
[2018-03-19] MEDS ORDERED: HYDROmorphone INJ 0.5 MG/0.5 ML SYR IV PRN (15:39)
[2018-03-19] MEDS: WARFARIN SOD 4 MG TAB PO SCH (16:39)
[2018-03-19] MEDS: CEFAZOLIN 1000MG 1,000 MG/7.5 ML SYR IV SCH (16:42)
[2018-03-19] MEDS: ACETAMINOPHEN 500 MG TAB PO SCH ×2 (16:42→21:37)
--- NOTE | 2018-03-19 17:55 | Orthopedic Progress Note ---
Date of Service March 19, 2018 Assessment & Plan (1) Failed total hip arthroplasty with dislocation: s/p revision Left OSWALDO, head and liner exchange -ancef x 24 -DVT ppx - lovenox --> warfarin bridge, goal INR 2.0-2.5 -WBAT LLE -PT/OT -am labs -Postoperative x-ray demonstrates a well aligned well fixed orthopedic prosthesis without evidence of loosening, fracture subsidence or dislocation. -DC planning Subjective Post Operative Progress Note Patient seen sitting up in bed, comfortable, denies complaints, pain well controlled, no acute issues. Physical Exam 2 Vital Signs (Past 24 Hours): Last Vital Signs Temp 36.5 C 03/19/18 17:09 Pulse 82 03/19/18 17:09 Resp 20 03/19/18 17:09 BP 109/53 L 03/19/18 17:09 Pulse Ox 94 03/19/18 17:09 Physical Exam: LLE NVSI +EHL/FHL/TA/GS SILT grossly, +2 DP pulse, compartments soft NT, dressing cdi. Eyes: PERRL, conjunctivae normal, anicteric sclerae ENMT: external ear and nose normal, oropharynx normal Neck: trachea midline, no thyromegaly Respiratory: normal respiratory effort, lungs clear to auscultation Cardiovascular: RRR, no murmur, no edema Gastrointestinal (Abdomen): normal bowel sounds, soft, nontender, no hepatosplenomegaly Musculoskeletal: no cyanosis or clubbing, extremities motor strength 5/5 Skin: no rashes, warm and dry Neurologic: patellar DTR's 2+ bilat, sensation intact Psychiatric: A+Ox3, euthymic affect Lymphatic: no cervical or axillary lymphadenopathy
--- NOTE | 2018-03-19 18:14 | Hospitalist Consultation ---
Date of Consultation March 19, 2018 Assessment & Plan (1) Failed total hip arthroplasty with dislocation: - POD#0 left total hip revision by Dr. Carcamo - activity and wound care orders as per ortho - pain control with bowel regimen - PT/OT - monitor H/H for acute blood loss anemia and transfuse blood products PRN - EBL 85 cc (2) Hypotension after procedure: -Intraoperative and postoperative blood pressures running in the high 80s- 90s systolically -Most recent BP reading 109/53 -Receiving IVF with improvement in BPs -will continue current bag to complete infusion and hold on further IVF given valvular heart disease (3) Chronic atrial fibrillation: -Rate controlled on digoxin and diltiazem, continue both with holding parameters in place for diltiazem due to hypotension -Anticoagulated on Coumadin -Coumadin resumed by orthopedics as per anticoagulation clinic recommendations ( 4 mg x 2 days then resume home dosing of 1 mg Sunday and Sunday and 2 mg all other days) (4) Chronic obstructive pulmonary disease: -Stable, no signs of acute exacerbation -Continue home inhalers (5) Moderate aortic valve stenosis: (6) Moderate aortic valve regurgitation: (7) Moderate mitral regurgitation: (8) Moderate tricuspid regurgitation: -Recent echo 02/2018, EF 65-69% -Monitor volume status closely (9) CKD (chronic kidney disease), stage III: -Baseline creatinine ~ 0.9 -Monitor renal functions, avoid nephrotoxic agents when able (10) DVT prophylaxis: -Coumadin resumed as above -Lovenox 40 mg SQ daily ordered by orthopedics until INR > 2.0 Thank you for this consultation. We will follow the patient with you during their hospital stay. You can reach a member of the [facility] Hospitalist Team 11/09 via pager @ [phone]. History of Present Illness Reason for Consultation: Postop medical management Requesting Physician: Dr. Carcamo Attending Physician: Dr. Guadalupe History of Present Illness 83-year-old female who is status post left total hip arthroplasty revision today by Dr. Cavazos. While in PACU, patient was lethargic and mildly hypotensive. She was admitted to PCU and is currently alert and oriented and BP has improved. Patient reports her pain is well controlled. She reports some mild numbness and tingling to the left lower extremity which continues to improve. She denies chest pain or shortness of breath. No lightheadedness or dizziness. She denies abdominal pain or nausea. She has not voided since surgery. Allergies Allergy/AdvReac Type Severity Reaction Status Date / Time No Known Allergies Allergy Verified 03/19/18 08:18 Home Medications Home Medications Medication Instructions Recorded Confirmed Type Lactobacillus acidophilus 1 cap PO BID 01/19/18 03/19/18 History [Probiotic] albuterol sulfate 1 vial INHALATION Q4H PRN 01/19/18 03/19/18 History albuterol sulfate 2 - 4 puff INHALATION Q6H PRN 01/19/18 02/27/18 History buspirone 10 mg PO QAM 01/19/18 03/19/18 History digoxin 0.5 tab PO QPM 01/19/18 03/19/18 History diltiazem HCl 240 mg PO QAM 01/19/18 03/19/18 History fluticasone-vilanterol 1 inh INHALATION QAM 01/19/18 03/19/18 History tiotropium bromide 1 inh INHALATION QPM 01/19/18 03/19/18 History warfarin 1 mg PO 2XWK 01/19/18 03/19/18 History warfarin 2 mg PO 5XWK 01/19/18 03/19/18 History acetaminophen [Pain Reliever] 1,000 mg PO Q8 PRN #90 tab 03/19/18 Rx enoxaparin [Lovenox] 30 mg SUBCUT Q24H 7 Days #2.1 ml 03/19/18 Rx sennosides [Senokot] 17.2 mg PO HS PRN #28 tab 03/19/18 Rx oxycodone 5 mg PO Q6H PRN #30 tab MDD 6 tabs 03/20/18 Rx Patient History Medical History Moderate tricuspid regurgitation (Chronic) Moderate mitral regurgitation (Chronic) Moderate aortic valve regurgitation (Chronic) Moderate aortic valve stenosis (Chronic) History of hysterectomy (Chronic) Osteoporosis (Chronic) CKD (chronic kidney disease), stage III (Chronic) Chronic atrial fibrillation (Chronic) Chronic obstructive pulmonary disease (Chronic) Afib (Inactive) ON WARFARIN Cancer (Inactive) UTERINE CANCER Osteoarthritis (Inactive) Valvular heart disease (Inactive) Moderate aortic stenosis (GILLIAN 0.96cm2, mean gradient 11.9 mmhg), Moderate AR/MR /TR per 02/2018 ECHO Surgical History History of cataract surgery (Chronic) History of appendectomy (Chronic) History of total left hip replacement (Chronic) History of total right hip replacement (Chronic) History of cholecystectomy (Chronic) History of cardioversion (Inactive) History of cataract surgery (Inactive) B/L History of cholecystectomy (Inactive) History of colonoscopy (Inactive) History of dilatation and curettage (Inactive) History of esophagogastroduodenoscopy (EGD) (Inactive) History of left hip replacement (Inactive) B/L History of tooth extraction (Inactive) History of total hysterectomy (Inactive) Family History Mother Family history of diabetes mellitus Brother Family history of diabetes mellitus Father Family history of esophageal cancer Social History Current Living Situation: Spouse current occupational status: retired Other Information That Helps Us Care for You: No Feels Safe at Home: Yes Safety Concerns: Feels Safe At This Time Smoking Status: Former smoker Do You Dip or Chew Tobacco: No Smoking End Date: QUIT 3 YEARS AGO; 1PPD X 50+ YEARS AGO Hx Alcohol Use: No Hx Substance Use: No Beliefs That Will Affect Care: None Preferred Language: [place] Communication Ability: Effective Mainframe Applications Developer Required: No Review of Systems ROS per HPI, all other systems reviewed and negative Physical Exam 2 Vital Signs (Past 24 Hours): Last Vital Signs Temp 36.5 C 03/19/18 17:09 Pulse 82 03/19/18 17:09 Resp 20 03/19/18 17:09 BP 109/53 L 03/19/18 17:09 Pulse Ox 94 03/19/18 17:09 Constitutional: WD/WN, vitals as above Eyes: PERRL, conjunctivae normal, anicteric sclerae ENMT: external ear and nose normal, oropharynx normal Respiratory: normal respiratory effort, lungs clear to auscultation Cardiovascular: Rate/Rhythm: regular rate; + abnormal rhythm (Irregularly irregular) Vessels: normal peripheral pulses Extremities: no edema Gastrointestinal (Abdomen): normal bowel sounds, soft, nontender, no hepatosplenomegaly Musculoskeletal: S/P left hip surgery, surgical dressing dry and intact, CSM checks intact left lower extremity Skin: no rashes, warm and dry Neurologic: PERRL, EOMI, accommodation nl, no face palsy, no dysarthria Psychiatric: A+Ox3, euthymic affect
[2018-03-19 18:53] LABS: Est GFR (African American) 54.1; Est GFR (Non-African American) 46.7
[2018-03-19] MEDS: SENNA 8.6 MG TAB PO SCH (21:36)
[2018-03-19] MEDS: DIGOXIN 0.125 MG TAB PO SCH (21:36)
[2018-03-19] MEDS: DOCUSATE SODIUM 100 MG CAP PO SCH (21:36)
[2018-03-19] MEDS: TIOTROPIUM BROMIDE 5 PUFF/90 MCG INH INH SCH (21:37)
[2018-03-20] MEDS: CEFAZOLIN 1000MG 1,000 MG/7.5 ML SYR IV SCH (01:48)
[2018-03-20] MEDS: ACETAMINOPHEN 500 MG TAB PO SCH ×3 (05:00→21:54)
[2018-03-20 07:09] LABS: INR 1.1 (0.9-1.1); Prothrombin Time 11.4 Seconds (9.0-12.0)
[2018-03-20 07:22] LABS: Hematocrit (blood only) 42.7 % (37-47); Hemoglobin 13.9 g/dL (12.0-16.0); Immature Granulocytes # (auto) 0.06 K/uL (0.00-0.02); Immature Granulocytes % (auto) 0.4 %; Lymphocytes # (auto) 1.48 K/uL (1.2-3.4); Lymphocytes % (auto) 9.2 %; Mean Corpuscular Hgb Conc 32.6 g/dL (32-36); Mean Corpuscular Volume 92.4 fL (80-100); Mean Platelet Volume 10.6 fL (7.4-10.4); Monocytes # (auto) 0.63 K/uL (0.11-0.59); Monocytes % (auto) 3.9 %; Neutrophils # (auto) 13.92 K/uL (1.4-6.5); Neutrophils % (auto) 86.5 %; Platelet Count 245 K/uL (130-400); RDW Coefficient of Variation 14.8 % (11.5-14.5); RDW Standard Deviation 50.4 fL (36.4-46.3); Red Blood Count 4.62 M/uL (4.2-5.4); White Blood Count 16.09 K/uL (4.8-10.8)
[2018-03-20 07:24] LABS: BUN Creatinine Ratio 19.7 (10-20); Calcium 8.4 mg/dl (8.5-10.1); Creatinine Clr Calc Pharmacy 31.3 ml/min; Est GFR (African American) 50.8; Est GFR (Non-African American) 43.8; Potassium 4.3 mmol/L (3.5-5.1)
--- NOTE | 2018-03-20 08:58 | Orthopedic Progress Note ---
Date of Service March 20, 2018 Assessment & Plan (1) Failed total hip arthroplasty with dislocation: s/p revision Left OSWALDO, head and liner exchange POD#1 -ancef x 24 -DVT ppx - lovenox --> warfarin bridge, goal INR 2.0-2.5 -WBAT LLE -PT/OT -am labs - 13.9 -Postoperative x-ray demonstrates a well aligned well fixed orthopedic prosthesis without evidence of loosening, fracture subsidence or dislocation. -DC planning mohit with HH Subjective Post Operative Progress Note Patient seen sitting up in bed, comfortable, denies complaints, pain well controlled, no acute issues overnight. Physical Exam 2 Vital Signs (Past 24 Hours): Last Vital Signs Temp 36.5 C 03/20/18 03:08 Pulse 103 H 03/20/18 03:08 Resp 16 03/20/18 03:08 BP 93/53 L 03/20/18 03:08 Pulse Ox 92 03/20/18 03:08 Physical Exam: LLE NVSI +EHL/FHL/TA/GS SILT grossly, +2 DP pulse, compartments soft NT, dressing cdi.
[2018-03-20] MEDS ORDERED: ENOXAPARIN INJ 30 MG/0.3 ML SYR SQ SCH (09:00)
[2018-03-20] MEDS: dilTIAZem HCL 240 MG CAPCR PO SCH (09:04)
[2018-03-20] MEDS: MULTIVITAMIN TAB PO SCH (09:04)
[2018-03-20] MEDS: DOCUSATE SODIUM 100 MG CAP PO SCH ×2 (09:04→21:55)
--- NOTE | 2018-03-20 13:45 | Hospitalist Progress Note ---
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 Carcamo - activity and wound care orders as per ortho - pain control with bowel regimen - PT/OT - monitor H/H for acute blood loss anemia and transfuse blood products PRN - EBL 85 cc - Hemoglobin stable at 13.9 (2) Radial artery injury: -Edema and ecchymosis noted over previous right radial artery arterial line location -Pressure dressing currently in place -Discussed with anesthesia who will come evaluate and give recommendations regarding Coumadin/Lovenox going forward (3) Hypotension after procedure: -Resolved -Intraoperative and postoperative blood pressures running in the high 80s-90s systolically -Received IVF with improvement in BPs (4) Chronic atrial fibrillation: -Rate controlled on digoxin and diltiazem, continue both -Anticoagulated on Coumadin -Coumadin resumed by orthopedics as per anticoagulation clinic recommendations ( 4 mg x 2 days then resume home dosing of 1 mg Sunday and Sunday and 2 mg all other days) -INR 1.1 today (5) Chronic obstructive pulmonary disease: -Stable, no signs of acute exacerbation -Continue home inhalers (6) Moderate aortic valve stenosis: (7) Moderate aortic valve regurgitation: (8) Moderate mitral regurgitation: (9) Moderate tricuspid regurgitation: -Recent echo 02/2018, EF 65-69% -Monitor volume status closely (10) CKD (chronic kidney disease), stage III: -Baseline creatinine ~ 0.9 -Creatinine 1.1 03/20 -Monitor renal functions, avoid nephrotoxic agents when able (11) DVT prophylaxis: -Coumadin resumed as above -Lovenox 40 mg SQ daily ordered by orthopedics until INR > 2.0 Supervising Physician Co-Signing Physician Notes Pt was seen and examined. Agreed with Cydney AGUILAR exam, assessment and plan. Subjective Patient seen and examined. Reports she is doing well, offers no complaints. Tolerating therapy. Pain is well controlled. No chest pain or shortness of breath. She denies lightheadedness and dizziness. Physical Exam 2 Vital Signs (Past 24 Hours): Last Vital Signs Temp 36.6 C 03/20/18 11:00 Pulse 68 03/20/18 11:00 Resp 16 03/20/18 11:00 BP 123/91 03/20/18 11:00 Pulse Ox 98 03/20/18 11:00 Constitutional: WD/WN, vitals as above Respiratory: normal respiratory effort, lungs clear to auscultation Cardiovascular: Rate/Rhythm: regular rate; + abnormal rhythm (Irregularly irregular) Vessels: normal peripheral pulses Extremities: no edema Musculoskeletal: S/P left hip surgery, dressing dry and intact, CSM checks intact to left lower extremity Prior right radial arterial line location noted to have ecchymosis and localized edema extending up into the right thumb. Pressure dressing in place Psychiatric: Orientation: alert and oriented x 3 Results & Data Laboratory Results Short CBC 03/20/18 Range/Units 06:31 WBC 16.09 H (4.8-10.8) K/uL Hgb 13.9 (12.0-16.0) g/dL Hct 42.7 (37-47) % Plt Count 245 (130-400) K/uL BMP 03/19/18 03/20/18 17:39 06:31 Sodium 138 Potassium 4.3 Chloride 108 H Carbon Dioxide 22 BUN 23 H Creatinine 1.10 1.16 Glucose 129 H Calcium 8.4 L
--- NOTE | 2018-03-20 14:23 | Anesthesiology Progress Note ---
Date of Service March 20, 2018 Anesthesia Post Procedure Vital Signs Vital Signs: Temp Pulse Pulse Resp BP BP Pulse Ox 03/20/18 13:20 98 03/20/18 11:00 36.6 C 68 16 123/91 98 03/20/18 09:19 36.7 C 97 H 18 95/62 L 94 03/20/18 03:08 36.5 C 103 H 16 93/53 L 92 03/19/18 23:53 36.5 C 85 18 93/60 L 100 03/19/18 21:36 70 03/19/18 20:00 36.6 C 80 20 103/64 98 03/19/18 18:09 36.5 C 76 20 104/65 99 03/19/18 17:09 36.5 C 82 20 109/53 L 94 03/19/18 16:09 36.6 C 71 20 89/50 L 98 03/19/18 15:39 36.5 C 70 19 97/58 L 98 03/19/18 14:58 36.6 C 03/19/18 14:35 36.4 C L 73 18 93/53 L 99 03/19/18 14:30 70 20 94/52 L 99 03/19/18 14:25 63 23 91/58 L 99 03/19/18 14:20 66 15 91/53 L 98 03/19/18 14:15 70 15 92/54 L 98 Notes Mental Status: alert / awake / arousable Patient Amnestic to Procedure: Yes Nausea / Vomiting: adequately controlled Pain: adequately controlled Airway Patency, RR, SpO2: stable & adequate BP & HR: stable & adequate Hydration State: stable & adequate Anesthetic Complications: no major complications apparent, see Notes below and Pt Satisfied with anesthetic care Notes: The patient is POD #1 s/p L total hip revision. She had an R radial arterial line for monitoring during the procedure that was removed yesterday. She was noted to have continued bleeding and extensive bruising over the site and her R forearm. Dr. Syed saw the patient earlier today and removed the bandage that was compressing the site and causing swelling and loss of sensation in the patient's hand. On my visit the patient was alert and oriented with a pleasant disposition. The patient had a light dressing over the arterial puncture site that was removed. The puncture site was barely visible and was not bleeding. She did have extensive red bruising around the site. She was noted to have bruising around the blood pressure cuff site on her other arm and appeared to have bruising. The patient had full sensation to cold alcohol swab and touch in her fingers. She full range of motion of her R wrist and fingers. She had a good R radial pulse and she had a normal Ld test on her R hand. The puncture site will likely heal on its own if it is not irritated. The patient was instructed to keep her R hand elevated and to let it rest. The patient was counseled to let her nurse know if bleeding recurs from the puncture site or she loses any sensation in her fingers. The patient's nurse was instructed to put a light dressing over the puncture site with using paper tape. He was instructed to call anesthesia if any further bleeding occurs.
[2018-03-20] MEDS: WARFARIN SOD 4 MG TAB PO SCH (15:37)
[2018-03-20] MEDS: OXYCODONE HCL IR 5 MG TAB (IMMEDIATE RELEASE) PO PRN (16:26)
[2018-03-20] MEDS: DIGOXIN 0.125 MG TAB PO SCH (21:54)
[2018-03-20] MEDS: SENNA 8.6 MG TAB PO SCH (21:55)
[2018-03-20] MEDS: TIOTROPIUM BROMIDE 5 PUFF/90 MCG INH INH SCH (21:57)
[2018-03-20] MEDS: LR 500ML BOLUS, THEN 15ML/HR IV SCH ×7 (22:40→23:08)
[2018-03-20] MEDS ORDERED: CALCIUM CARBONATE 500 MG CHEWABLE TAB PO PRN (23:10)
[2018-03-21] MEDS: OXYCODONE HCL IR 5 MG TAB (IMMEDIATE RELEASE) PO PRN (02:01)
[2018-03-21] MEDS: ACETAMINOPHEN 500 MG TAB PO SCH ×2 (05:30→13:46)
[2018-03-21 07:28] LABS: Hematocrit (blood only) 40.9 % (37-47); Hemoglobin 13.4 g/dL (12.0-16.0); Immature Granulocytes # (auto) 0.06 K/uL (0.00-0.02); Immature Granulocytes % (auto) 0.3 %; Lymphocytes # (auto) 1.21 K/uL (1.2-3.4); Lymphocytes % (auto) 6.4 %; Mean Corpuscular Hgb Conc 32.8 g/dL (32-36); Mean Corpuscular Volume 92.1 fL (80-100); Mean Platelet Volume 10.5 fL (7.4-10.4); Monocytes # (auto) 1.37 K/uL (0.11-0.59); Monocytes % (auto) 7.2 %; Neutrophils # (auto) 16.41 K/uL (1.4-6.5); Neutrophils % (auto) 86.1 %; Platelet Count 250 K/uL (130-400); RDW Standard Deviation 51.2 fL (36.4-46.3); Red Blood Count 4.44 M/uL (4.2-5.4); White Blood Count 19.05 K/uL (4.8-10.8)
[2018-03-21 07:38] LABS: INR 2.3 (0.9-1.1); Prothrombin Time 22.3 Seconds (9.0-12.0)
[2018-03-21 08:01] LABS: BUN Creatinine Ratio 28.6 (10-20); Calcium 8.7 mg/dl (8.5-10.1); Creatinine Clr Calc Pharmacy 34.6 ml/min; Est GFR (African American) 57.9; Potassium 4.2 mmol/L (3.5-5.1)
--- NOTE | 2018-03-21 08:18 | Orthopedic Progress Note ---
Date of Service March 21, 2018 Assessment & Plan (1) Failed total hip arthroplasty with dislocation: s/p revision Left OSWALDO, head and liner exchange POD#2 -ancef x 24 -DVT ppx - lovenox --> warfarin bridge, goal INR 2.0-2.5 -WBAT LLE -PT/OT -am labs - hgb 13.4, INR 2.3 -Postoperative x-ray demonstrates a well aligned well fixed orthopedic prosthesis without evidence of loosening, fracture subsidence or dislocation. -DC planning home with HH Subjective Post Operative Progress Note Patient seen sitting up in bed, comfortable, denies complaints, pain well controlled, no acute issues overnight. Physical Exam 2 Vital Signs (Past 24 Hours): Last Vital Signs Temp 36.8 C 03/21/18 07:05 Pulse 84 03/21/18 07:05 Resp 18 03/21/18 07:05 BP 145/54 H 03/21/18 07:05 Pulse Ox 91 03/21/18 07:05 Physical Exam: LLE NVSI +EHL/FHL/TA/GS SILT grossly, +2 DP pulse, compartments soft NT, dressing cdi.
[2018-03-21] MEDS: dilTIAZem HCL 240 MG CAPCR PO SCH (08:47)
[2018-03-21] MEDS: DOCUSATE SODIUM 100 MG CAP PO SCH (08:47)
[2018-03-21] MEDS: MULTIVITAMIN TAB PO SCH (08:47)
--- NOTE | 2018-03-21 10:56 | Hospitalist Progress Note ---
Addendum entered and electronically signed by LAUREN Roberts 03/21/18 15:03 : Addendum (Blank) Addendum March 21, 2018 14:58 CXR IMPRESSION: 1. Mild bibasilar thickening and a few basilar linear densities most pronounced on the left. This favors subsegmental atelectasis. However, a pneumonia could also have a similar appearance. 2. A 9 mm nodular density at the left lung base. This could be due to the overlapping rib. Repeat shallow oblique views can be performed for further evaluation. 3. Emphysema. Given left basilar atelectasis versus possible pneumonia, patient was started on doxycycline 100 mg for 5 days. Follow-up oblique CXR was obtained per recommendation: CXR [place] IMPRESSION: 1. Severe pulmonary emphysema 2. Oblique views the chest appear to confirm the presence of a 1 cm left lower lung zone pulmonary nodule. CT scanning is recommended in follow-up 3. Small bilateral pleural effusions. Basilar interstitial thickening left greater than right. Patient will need outpatient chest CT to follow-up left lower lung pulmonary nodule. This was communicated to patient's outpatient PCP. Patient was also given a prescription to have CBC checked before follow-up appointment with PCP on 03/27. Outpatient Coumadin clinic was also notified of current INR and addition of doxycycline. 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 Carcamo - activity and wound care orders as per ortho - pain control with bowel regimen - PT/OT - monitor H/H for acute blood loss anemia and transfuse blood products PRN - EBL 85 cc - Hemoglobin stable at 13.4 (2) Radial artery injury: -Edema improved from yesterday, ecchymosis remains over right radial artery arterial line site extending into the right thumb and up the forearm -Pressure dressing currently in place -no signs of bleeding or oozing -Anesthesia evaluated the patient yesterday who advises continuing the pressure dressing; okay to continue Coumadin (3) Leukocytosis: -WBC 19 K today, afebrile, vital signs stable -Possible stress response from surgery -No urinary symptoms -Patient has a productive cough and some coarse breath sounds on exam today, will check CXR (4) Hypotension after procedure: -Resolved -Intraoperative and postoperative blood pressures running in the high 80s-90s systolically -Received IVF with improvement in BPs (5) Chronic atrial fibrillation: -Rate controlled on digoxin and diltiazem, continue both -Anticoagulated on Coumadin -Coumadin resumed by orthopedics as per anticoagulation clinic recommendations ( 4 mg x 2 days then resume home dosing of 1 mg Sunday and Sunday and 2 mg all other days) -INR 2.3 today (6) Chronic obstructive pulmonary disease: -Stable, no signs of acute exacerbation -Continue home inhalers (7) Moderate aortic valve stenosis: (8) Moderate aortic valve regurgitation: (9) Moderate mitral regurgitation: (10) Moderate tricuspid regurgitation: -Recent echo 02/2018, EF 65-69% -Monitor volume status closely (11) CKD (chronic kidney disease), stage III: -Baseline creatinine ~ 0.9 -Creatinine 1.0 03/21 -Monitor renal functions, avoid nephrotoxic agents when able (12) DVT prophylaxis: -On Coumadin, INR 2.3 Supervising Physician Co-Signing Physician Notes Pt was seen and examined. Agreed with Cydney AGUILAR exam, assessment and plan. Subjective Patient seen and examined. Reports she is doing well, offers no complaints. Reports left hip pain is under control. Has a cough with some mucus production this morning. Reports this is chronic for her. Denies shortness of breath and chest pain. No lightheadedness or dizziness. Denies abdominal pain nausea. Physical Exam 2 Vital Signs (Past 24 Hours): Last Vital Signs Temp 36.8 C 03/21/18 07:05 Pulse 84 03/21/18 07:05 Resp 18 03/21/18 07:05 BP 145/54 H 03/21/18 07:05 Pulse Ox 91 03/21/18 07:05 Constitutional: WD/WN, vitals as above Respiratory: normal respiratory effort and + cough (Productive for brown/ yellow mucus); no respiratory distress Mildly coarse breath sounds left mid to lower lung pulliam Cardiovascular: Rate/Rhythm: regular rate; + abnormal rhythm (Irregularly irregular) Vessels: normal peripheral pulses Extremities: no edema Musculoskeletal: S/P left hip surgery, dressing dry and intact Ecchymosis over right radial artery arterial line site extending into the thumb and up the forearm; edema improved from yesterday. Positive pulse and good sensation in fingers. Psychiatric: Orientation: alert and oriented x 3 Results & Data Laboratory Results Short CBC 03/21/18 Range/Units 06:51 WBC 19.05 H (4.8-10.8) K/uL Hgb 13.4 (12.0-16.0) g/dL Hct 40.9 (37-47) % Plt Count 250 (130-400) K/uL BMP 03/21/18 06:51 Sodium 140 Potassium 4.2 Chloride 110 H Carbon Dioxide 23 BUN 30 H Creatinine 1.04 Glucose 92 Calcium 8.7
--- NOTE | 2018-03-21 12:29 | XRay Report ---
XR chest 1V portable HISTORY: cough, leukocytosis COMPARISON: Chest 06/27/2017. FINDINGS: The lungs are hyperexpanded with apical predominant emphysematous changes. The upper lungs and remain clear. The heart is normal in size. No pneumothorax. Mild bibasilar interstitial thickenin g with a few basilar linear densities most pronounced on the left. Questionable 9 mm nodule at the le ft lung base. IMPRESSION: 1. Mild bibasilar thickening and a few basilar linear densities most pronounced on the left. This fav ors subsegmental atelectasis. However, a pneumonia could also have a similar appearance. 2. A 9 mm nodular density at the left lung base. This could be due to the overlapping rib. Repeat sha llow oblique views can be performed for further evaluation. 3. Emphysema. Electronically signed by: Cipriano Galeano M.D. 03/21/2018 12:28 PM
[2018-03-21] MEDS ORDERED: DOXYCYCLINE HYCLATE 100 MG CAP PO ONE (13:15)
--- NOTE | 2018-03-21 14:45 | XRay Report ---
XR chest obliques only CLINICAL HISTORY: Pulmonary nodule COMPARISON STUDY: 03/21/2018 FINDINGS: PA oblique views the chest were acquired. The examination was performed with nipple markers. The examination confirms the presence of a 1 cm le ft lower lung zone pulmonary nodule. This does not correspond to the nipple. There is pulmonary emphy sema. There are small bilateral pleural effusions. There is basilar interstitial thickening. IMPRESSION: 1. Severe pulmonary emphysema 2. Oblique views the chest appear to confirm the presence of a 1 cm left lower lung zone pulmonary no dule. CT scanning is recommended in follow-up 3. Small bilateral pleural effusions. Basilar interstitial thickening left greater than right. Electronically signed by: Neri Bishop M.D. 03/21/2018 2:44 PM
[2018-03-21] MEDS ORDERED: WARFARIN SOD 2 MG TAB PO SCH (16:00)
--- NOTE | 2018-03-21 23:08 | Discharge Summary ---
Date of Service March 21, 2018 Admission HPI Per Admitting Provider The patient is a 83 year old female with PSH L OSWALDO performed in 1998 who presents with complaints of recurrent hip instability with dislocation x 2, May 2017 and January 2018. The patient has failed conservative treatments which includes bracing, PT/HEP. The patient's pain and limited function have progressed to the point where they severely hinder their activities of daily living and they no longer tolerate exercise programs. They are requesting to proceed with revision total hip replacement surgery. Patient had bone scan and was worked up for infection and loosening which was negative. Principal Diagnosis Failed left OSWALDO with recurrent instability/dislocation Discharge Exam LLE NVSI +EHL/FHL/TA/GS SILT grossly, +2 DP pulse, compartments soft NT, dressing cdi. Eyes PERRL, conjunctivae normal, anicteric sclerae ENMT external ear and nose normal, oropharynx normal Neck trachea midline, no thyromegaly Respiratory normal respiratory effort, lungs clear to auscultation Cardiovascular RRR, no murmur, no edema Gastrointestinal (Abdomen) normal bowel sounds, soft, nontender, no hepatosplenomegaly Musculoskeletal no cyanosis or clubbing, extremities motor strength 5/5 Skin no rashes, warm and dry Neurologic patellar DTR's 2+ bilat, sensation intact Psychiatric A+Ox3, euthymic affect Lymphatic no cervical or axillary lymphadenopathy Discharge Data Allergies Allergy/AdvReac Type Severity Reaction Status Date / Time No Known Allergies Allergy Verified 03/19/18 08:18 Consultations 03/19/18 14:47 Consult Hospitalist Routine 03/20/18 08:00 Consult Case Management - Discharge Planning Routine Procedures Performed Operation Date: 03/19/18 09:55 Actual Procedures p Left Total Hip Revision Arthroplasty Head and Liner Exchange, Acetabular Component Revision - Jose Carcamo DO Hospital Course (1) Failed total hip arthroplasty with dislocation: The patient is a 83 -year-old female who presents with previous left OSWALDO (1998) , recurrent dislocations and pain who has failed outpatient conservative treatments including NSAIDs, bracing, injections and home walking/exercise program. The patient's symptoms have progressed to the point where it has been difficult to perform even normal activities of daily living. I indicated the patient for a revision left total hip arthroplasty, the risks, benefits and complications of the procedure include but not limited to infection , bleeding, damage to bone, nerves, vessels, surrounding soft tissue, may develop blood clots, loss of function, leg length discrepancy, dislocation, failure of the components, loosening of the components, the need for additional surgery and . The patient wished to proceed with surgery at this time and informed consent was obtained. Hospital Course: On 03/19/18 the patient was taken to the operating room, adequate anesthesia administered and underwent a revision left total hip arthroplasty, head and liner exchange. The patient tolerated the procedure well and was taken to the PACU in stable condition. Post-operatively the patient was started on a DVT ppx medication and given appropriate IV antibiotics. Consults were placed to medical hospitalist group, physical therapy, occupational therapy and case management. On POD#1, the patient did well overnight and their pain was well controlled. Labs were drawn and the Hgb was 13.9. The patient progressed well with PT. Dressings were clean, dry and intact. On POD#2, the patient continued to progress with PT, there were no acute issues , VSS, hgb 13.4 and INR 2.3 The patients hospital stay was relatively uneventful and they were deemed stable by the orthopedic team and consultants to be discharged home with on . Discharge Instructions: Upon discharge the patient may weight bear as tolerates through their operative extremity. They were instructed to keep the incision clean and dry at all times. The patient may shower but should not submerge the incision, avoid bathing, pools and hot tubes. The patient was given a script for pain medication and should take as instructed. The patient was continued on their home DVT ppx, Coumadin and should take as directed. The patient was instructed to not drive or travel for long distances until cleared to do so. If the patient develops any symptoms of fevers, chills, nausea, vomiting, increased redness, swelling, pain or drainage from the surgical site, they should notify the office and/or proceed to the nearest emergency room. The patient should follow up in 10-14 days after surgery for their routine post- operative follow-up appointment and should call the office to confirm the date and time. s/p revision Left OSWALDO, head and liner exchange POD#2 -ancef x 24 -DVT ppx - lovenox --> warfarin bridge, goal INR 2.0-2.5 -WBAT LLE -PT/OT -am labs - hgb 13.4, INR 2.3 -Postoperative x-ray demonstrates a well aligned well fixed orthopedic prosthesis without evidence of loosening, fracture subsidence or dislocation. -DC planning home with HH Total Time Total Time Spent Total Time Spent (In Minutes): >60 minutes Discharge Plan Discharge Items Patient Disposition: Home - Home Health Services Reason For Visit: Presence of Artificial Hip Joint, Recurrent Disloc Discharge Diagnosis: Revision Left total hip replacement Condition: Good Discharge Goals: Decrease discomfort, Improve disease control, Improve function , Increase independence, Specific goals and Therapeutic intervention Activity: Per 'Additional Instructions' section Lifting: Wait until after follow-up appointment Bathing Comment: No bathing, pools or hot tubs Sexual Activity: Wait until after follow-up appointment Exercise/Sports: Wait until after follow-up appointment Driving/Machine Use Comment: No driving till cleared by your surgeon Weightbearing: Left weightbearing Non-emergency contact: Primary Care Provider and Surgeon Call non-emergency contact if: you have any medication questions, your symptoms worsen, your pain is not controlled, your pain is worsening, your pain is unusual for you, your pain is concerning for you, you have a fever, your temperature is above 101, your wound has increased redness, your wound has increased drainage and your wound pain has increased Follow-up/Referrals: Durga Gandhi MD [Primary Care Provider] - 03/27/18 11:05 am Diet: Heart Healthy Other Ambulatory Orders: Prothrombin Time INR (Routine) Timeframe: 3 Days Location: Determined by Patient Ordered By: Jose Nathan Provider Instructions: ACTIVITY RECOMMENDATIONS: SELF CARE INSTRUCTIONS AFTER TOTAL HIP REPLACEMENT Until the incision and soft tissues around your hip have healed, there is a possibility that the hip prosthesis could dislocate. A. Observe the following precautions to prevent dislocation: 1. Don't bend your hip greater than 90 degrees. 2. Avoid crossing your legs or ankles while standing or lying. 3. Sit with your feet placed 6 inches apart. 4. When sitting, keep your knees below your hips. Sit on a firm surface, avoid deep, soft chairs and couches. Use an elevated toilet seat in the bathroom. 5. Don't bend over at the waist. Use a long handled shoehorn and a sock aid to help you put on your shoes and socks. A trimmer meat can help you supervisor opening and picking objects that are too high or too low to reach. 6. Keep car riding to a minimum for at least one month after surgery. B. Your balance may be shaky for a while. Use crutches or a walker until directed by your doctor. C. Use hand rails when walking on stairs. D. Wear low heeled shoes with non-slip soles. E. Be sure that your floors are free of things that could trip you - throw rugs , electrical cords, small objects. Avoid wet and waxed floors, especially with crutches and canes. F. Try to walk several times a day with rest periods between. G. Continue with all the exercises taught to you in the hospital. Again, make walking a part of your daily routine. SPECIAL CARE INSTRUCTIONS: VERY IMPORTANT TO READ AND REVIEW A. You may still be at risk for phlebitis and blood clots. 1. Wear surgical stockings (EILEEN hose) for 2 weeks after surgery to improve circulation and reduce swelling. 2. Take your home dose of Coumadin or as directed by your doctor. This is your blood thinner. 3. High risk patients may be prescribed a stronger blood thinner if necessary. 4. If you are on Coumadin normally, your family doctor/parks worker should monitor your blood work. Expect a phone call the day of or the day after bloodwork is drawn to adjust your dosage. B. You must take antibiotics before having dental work, bladder, bowel and other surgery. Your doctor will provide you with a permanent card to carry describing precautions. C. Call [facility] if you have a fever, redness or swelling around the incision, cloudy drainage from incision, or sudden increase in pain in your hip, not relieved by your regular pain medication. D. Please call the office at if you have any concerns or questions about your operation or recovery. * YOU MAY SHOWER, NO TUB BATHS UNTIL CLEARED BY YOUR DOCTOR. * WEAR EILEEN HOSE 20 HOURS PER DAY FOR 2 WEEKS. * YOU SHOULD USE A WALKER OR CRUTCHES FOR 2-4 WEEKS. THIS WILL HELP PREVENT STRAIN ON YOUR HIP MUSCLE AND ALLOW IT TO HEAL PROPERLY. YOU MAY WEAN TO A CANE TOLERATED. * MOST PATIENTS WILL HAVE HOME NURSING FOR THERAPY. IF YOU DECIDE TO DO OUTPATIENT PHYSICAL THERAPY, PLEASE SCHEDULE THIS 3 TIMES PER WEEK. * DERMABOND Prineo- This is a mesh tape dressing that is covered with glue. It should remain in place until the incision is properly healed, usually 10-14 days. This dressing is designed to naturally slough off. You may trim the excess mesh tape as it peels off. Incision may be briefly wet in a shower. Dry immediately by blotting with a clean, dry towel. Do not bath or swim until instructed by your doctor. Do not scratch, rub, or pick at the dressing. Do not apply any topical ointments or lotions until dressing is completely removed and/or instructed by your doctor. There may be a small piece of suture material at one end of your incision. Do not pull or trim this. If it is bothersome or catching on clothing, you may cover it with a band-aid. *Prevena incisional vac is a special dressing covering your incision. This dressing provides a sterile dry environment while you are healing. The dressing is to be left in place for 7 days post-operatively. Your home nurse or surgeon will remove. If you develop any redness or blisters or have any questions notify your surgeon immediately. IF INCISION IS LEAKING THROUGH DRESSING, PLEASE CALL THE OFFICE . FOLLOW UP VISIT: If appointment is not already scheduled: Please call [facility] to make a follow-up appointment for 2 weeks after your surgery at . Please call and schedule a follow up appointment with your primary care provider within 7 days of discharge for follow up PT/INR lab draw and for any adjustments that need to be made to your Lovenox, Coumadin medication. HOSPITALIST RECOMMENDATIONS You will be started on an antibiotic (doxycycline) for possible pneumonia / bronchitis. Please take all pills according to instructions. Follow Up Appointment: Dr. Gandhi, Monday 03/27 at 11:05 You were given a script for bloodwork, please have this drawn before your appointment with Dr. Gandhi. Continue to take warfarin (Coumadin) as prescribed and follow with Coumadin clinic accordingly. Prescriptions: New acetaminophen [Pain Reliever] 500 mg Tablet 1,000 mg PO Q8 PRN (Reason: pain) Qty: 90 RF: 0 sennosides [Senokot] 8.6 mg Tablet 17.2 mg PO HS PRN (Reason: constipation) Qty: 28 RF: 0 oxycodone 5 mg Tablet 5 mg PO Q6H MDD 6 tabs PRN (Reason: pain) Qty: 30 RF: 0 doxycycline hyclate 100 mg capsule 100 mg PO BID 5 Days Qty: 10 RF: 0 Continue albuterol sulfate 2.5 mg /3 mL (0.083 %) solution for nebulization 1 vial Inhalation Q4H PRN (Reason: Shortness Of Breath) RF: 0 diltiazem HCl 240 mg capsule,extended release 24hr 240 mg PO QAM RF: 0 warfarin 2 mg tablet 2 mg PO 5XWK RF: 0 tiotropium bromide 18 mcg capsule, w/inhalation device 1 inh Inhalation QPM RF: 0 fluticasone-vilanterol 100-25 mcg/dose blister with device 1 inh Inhalation QAM RF: 0 digoxin 250 mcg tablet 0.5 tab PO QPM RF: 0 buspirone 10 mg tablet 10 mg PO QAM RF: 0 warfarin 2 mg tablet 1 mg PO 2XWK RF: 0 albuterol sulfate 90 mcg/actuation HFA aerosol inhaler 2 - 4 puff Inhalation Q6H PRN (Reason: Shortness Of Breath) RF: 0 Lactobacillus acidophilus [Probiotic] 10 billion cell Capsule 1 cap PO BID RF: 0 Stand-Alone Forms: [facility] Discharge Orders: Discharge Order (Routine); Ordered 03/21/18 Ordered By: Jose Carcamo Admission Data Admit Date/Time: 03/19/18 12:37 Attending Provider: Jose Carcamo Admit Provider: Jose Carcamo Primary Care Provider: Durga Gandhi Other Providers: Elliott Yanes Service: Telemetry Other Interventions: Discharge Summary Assessment (RN) Last Done: 03/21/18 15:42 DC Date/Time DO NOT enter until pt leaves facility: 03/21/18 13:55
--- NOTE | 2018-03-22 09:45 | Coding Query ---
PATHOLOGY To promote full compliance with coding requirements relating to patient care, physician participation is requested in all cases of infection control manager uncertainty. Please assist us with the question(s) below: Please review the CHEST XRAY FROM 03/21/18 and please document any relevant diagnosis(es) below: Diagnosis(es): lung nodule Thank you Cecelia STANTON
[2018-03-22] MEDS ORDERED: WARFARIN SOD 1 MG TAB PO SCH (16:00)
== END 2018-03-21 13:55 | disposition home health service (06) | DRG 467 ==
LOC: ASU 07:34 → 2S 12:37
DX: J44.9 Chronic obstructive pulmonary disease, unspecified; Y92.230 Patient room in hospital as the place of occurrence of the external cause; Z79.01 Long term (current) use of anticoagulants; Y83.1 Surgical operation with implant of artificial internal device as the cause of abnormal reaction of the patient, or of later complication, without mention of misadventure at the time of the procedure; I08.3 Combined rheumatic disorders of mitral, aortic and tricuspid valves; R05 Cough; D72.829 Elevated white blood cell count, unspecified; Z79.899 Other long term (current) drug therapy; I95.81 Postprocedural hypotension; S55.101A Unspecified injury of radial artery at forearm level, right arm, initial encounter; Y79.2 Prosthetic and other implants, materials and accessory orthopedic devices associated with adverse incidents; Z96.643 Presence of artificial hip joint, bilateral; N18.3 Chronic kidney disease, stage 3 (moderate); I48.2 Chronic atrial fibrillation; Z79.51 Long term (current) use of inhaled steroids; T84.021A Dislocation of internal left hip prosthesis, initial encounter; R91.1 Solitary pulmonary nodule; Z87.891 Personal history of nicotine dependence; Y84.8 Other medical procedures as the cause of abnormal reaction of the patient, or of later complication, without mention of misadventure at the time of the procedure

== ENCOUNTER 2018-11-03 10:49 | Inpatient (IN) ==
--- OUTSIDE RECORDS SUMMARY | 2018-11-03 10:51 | External Medical Summary | Continuity of Care Document ---
:1935 Author Name Zelalem Gale, Provider Address Unavailable Unavailable , Care Team Providers Name Role Phone Elliott Cruz M.D. Unavailable [email or web address] Gale Unavailable [email or web address]re Gandhi Unavailable Unavailable Unavailable Unavailable Unavailable Problems Tobacco Use Permanent atrial fibrillation (427.31) (I48.2) Abnormal weight loss (783.21) (R63.4) Chronic obstructive pulmonary disease (496) (J44.9) Allergies and Adverse Reactions No Known Drug Allergies (Allergy) Medications Albuterol Sulfate (2.5 MG/3ML) 0.083% In halation Nebulization Solution; USE 1 VIAL IN NEBULIZER EVERY 6 HOURS NEEDED. Shahla Cruz Start: Quantity: 1 3 ML Plas Cont (125 Plas Conts) Refills: 3 Spiriva HandiHaler 18 MCG Inhalation Cap vangie; INHALE THE CONTENTS OF 1 CAPSULE DAILY Shahla Cruz Start: 09-Oct-2012 Quantity: 90 Refills: 4 busPIRone HCl TABS Refills: 0 Proventil HFA 108 (90 Base) MCG/ACT Inha lation Aerosol Solution; INHALE 2 PUFFS EVERY 4-6 HOURS NEEDED. Shahla Cruz Start: 07-May-2012 Quantity: 3 6.7 GM Inhaler Refills: 3 Nebulizer/Tubing/Mouthpiece KIT; Use as directed. #2, 3 refills Shahla Cruz Start: 30-Oct-2011 Quantity: 2 Refills: 3 Cardizem CD 360 MG Oral Capsule Extended Release 24 Ho ur; TAKE 1 CAPSULE DAILY. Refills: 0 Digoxin 250 MCG Oral Tablet; TAKE 1 TABLET DAILY. Refills: 0 Coumadin TABS Refills: 0 Procedures History of Total Abdominal Hysterectomy Status: Completed History of Total Hip Replacement Status: Completed Immunizations Fluzone High-Dose Intramuscular Suspension On: 06-Dec-2012 1 5:45 Lot #: [id number], SHAMAR PASTEUR Family History Mother Family history of Coronary Arteriosclerosis (V17.49) Status: Active Father Family history of Laryngeal Cancer (V16.2) Status: Active Plan of Treatment Planned Observations Planned Goals not documented Results No Known Results Results not documented
[2018-11-03] MEDS ORDERED: SODIUM CHLORIDE 0.9% 1000ML 1,000 ML IV ONE (11:52)
[2018-11-03] MEDS ORDERED: MoRPHine SULFATE 2 MG/ML CARP IV STA (11:53)
[2018-11-03] MEDS ORDERED: ONDANSETRON INJ 2 MG/ML 2 ML VIAL IV STA (11:53)
[2018-11-03 12:14] LABS: Basophils # (auto) 0.01 K/uL (0-0.2); Basophils % (auto) 0.1 %; Eosinophils # (auto) 0.09 K/uL (0-0.5); Eosinophils % (auto) 0.5 %; Hematocrit (blood only) 38.2 % (37-47); Hemoglobin 12.8 g/dL (12.0-16.0); Immature Granulocytes # (auto) 0.14 K/uL (0.00-0.02); Immature Granulocytes % (auto) 0.7 %; Lymphocytes # (auto) 1.57 K/uL (1.2-3.4); Lymphocytes % (auto) 8.1 %; Mean Corpuscular Hemoglobin 31.2 pg (25-34); Mean Corpuscular Hgb Conc 33.5 g/dL (32-36); Mean Corpuscular Volume 93.2 fL (80-100); Monocytes # (auto) 2.29 K/uL (0.11-0.59); Monocytes % (auto) 11.8 %; Neutrophils # (auto) 15.36 K/uL (1.4-6.5); Neutrophils % (auto) 78.8 %; Platelet Count 249 K/uL (130-400); RDW Coefficient of Variation 14.6 % (11.5-14.5); RDW Standard Deviation 49.2 fL (36.4-46.3); White Blood Count 19.46 K/uL (4.8-10.8)
[2018-11-03 12:31] LABS: Alanine Aminotransferase 19 U/L (12-78); Albumin Level 3.1 gm/dl (3.4-5.0); Aspartate Aminotransferase 15 U/L (15-37); BUN Creatinine Ratio 31.9 (10-20); Blood Urea Nitrogen 32 mg/dl (7-18); Calcium 8.2 mg/dl (8.5-10.1); Carbon Dioxide 28 mmol/L (21-32); Chloride 102 mmol/L (98-107); Creatinine Clr Calc Pharmacy 35.3 ml/min; Est GFR (Non-African American) 51.8; Glucose 94 mg/dl (70-99); Lipase 122 U/L (73-393); Potassium 3.9 mmol/L (3.5-5.1); Sodium 138 mmol/L (136-145)
[2018-11-03 12:36] LABS: Albumin Globulin Ratio 1.1 (0.9-2); Alkaline Phosphatase 70 U/L (45-117); Bilirubin,Total 1.1 mg/dl (0.2-1); Globulin 2.9 gm/dl (2.5-4.0); Troponin I < 0.015 ng/ml (0-0.045)
[2018-11-03 12:41] LABS: INR 5.6 (0.9-1.1)
[2018-11-03] MEDS ORDERED: IOVERSOL 100ml IV PRN (14:07)
[2018-11-03] MEDS ORDERED: PHYTONADIONE 5 MG in SODIUM CHLORIDE 0.9% 50 ML IV ONE (14:31)
--- NOTE | 2018-11-03 14:35 | CT Scan Report ---
CT OF THE ABDOMEN AND PELVIS WITH CONTRAST CLINICAL HISTORY: Left hip pain and swelling. COMPARISON STUDY: CT of the abdomen and pelvis July 21, 2014. Left hip radiographs March 10, 2018 2 019. TECHNIQUE: Following IV administration of 94 mL of Optiray-320, axial images of the abdomen and pelvi s were obtained from the lung bases to the proximal femurs. Images were reviewed in the axial, sagitt al, and coronal planes. IV contrast was administered without complication. Automated exposure contro l was utilized for the study. A dose lowering technique was utilized adhering to the principles of A AMILCAR. Oral contrast was administered. CT DOSE: 300.19 mGy.cm FINDINGS: Emphysema is noted within the lower lungs. There is subpleural right lower lobe opacity. Se cretions within bilateral lower lobe bronchi are noted with bronchial wall thickening. Innumerable he patic cysts are noted. There are several suspected left renal cysts. The spleen, adrenal glands and p ancreas are unremarkable. Mild biliary ductal dilatation is likely related to previous cholecystectom y. There is colonic diverticulosis without evidence for acute diverticulitis. No lymphadenopathy is p resent. There is presacral infiltration. Evaluation of the pelvis is compromised by streak artifact f rom bilateral hip arthroplasties. No acute fracture is identified. Note is made of moderate asymmetri c enlargement of the left gluteal musculature with an associated 9 mm hyperdense focus consistent wit h active extravasation. There is adjacent infiltration. There is no evidence for a bowel obstruction. Extensive plaque within the abdominal aorta is noted. A probable pancreas divisum is noted. IMPRESSION: 1. Moderate intramuscular hemorrhage within the left gluteal musculature with an associated 9 mm focu s of active extravasation. Findings discussed with Dr. Barcenas at time of dictation. Mild presacral i nfiltration which may be related. 2. No additional sites of hemorrhage identified within the abdomen or pelvis. 3. Numerous hepatic cysts and several left renal cysts. 4. Right lower lobe subpleural opacity which could reflect atelectasis or pneumonia. Severe emphysema . Electronically signed by: Cr Marshall M.D. 11/03/2018 2:33 PM
[2018-11-03 15:28] LABS: Appearance Urine Cloudy (Clear); Bacteria Urine Automated 4+ (Negative); Bilirubin Urine Negative (Negative); Blood Urine Negative (Negative); Color Urine Yellow; Epithelial Cell Urine Auto >30 /lpf (0-5); Glucose Urine UA Negative (Negative); Ketones Urine Negative (Negative); Leukocyte Esterase Urine 1+ (Negative); Nitrite Urine Positive (Negative); Protein Urine Negative (Negative); RBC Urine Automated 0-4 /hpf (0-4); Specific Gravity Urine 1.036 (1.000-1.030); Urobilinogen Urine Negative (Negative)
--- NOTE | 2018-11-03 16:01 | History & Physical Report ---
Date of Service November 03, 2018 Assessment & Plan (1) Hematoma of left hip: Patient presented with severe pain in her left buttock. CT demonstrated moderate size hematoma of left gluteal musculature with apparent ongoing extravasation. Tachycardic at time of presentation; blood pressures stable. On warfarin with an INR 5.6. Warfarin reversed with vitamin K. Hemoglobin 12.8 which is a lower than her preoperative baseline in February of 14.8. Monitor H&H. Transfuse as necessary per guidelines. Analgesics as needed. PT/OT evaluations. (2) Supratherapeutic INR: INR 5.6. Only recent new medication was prednisone taper. Patient reports normal dietary intake except for the last day or 2 when she was anorexic because of severe pain. Warfarin was reversed in light of left buttock hematoma with apparent ongoing bleeding. (3) Chronic atrial fibrillation: Chronic atrial fibrillation managed with digoxin, diltiazem, and warfarin. Ventricular rate was rapid the time of admission with a rate of 130/minute. Continue digoxin and diltiazem. Check digoxin level with morning labs. Warfarin needs to be reversed / held because of hematoma left buttock. Resume warfarin once concerns of ongoing hemorrhage have resolved. (4) Leukocytosis: WBC 19,460. No fever. Chronic cough, unchanged. Possible UTI as noted below. Does not appear to be septic. Suspect that leukocytosis most likely secondary to hematoma. Prednisone taper which was finished a few days ago may be a contributing factor as well. Follow. (5) Abnormal urinalysis: Patient reports foul-smelling urine, but no fever, dysuria, hematuria. Leukocytosis noted, but probably secondary to hematoma. Urinalysis showed nitrites, leukocyte esterase, 5-10 WBCs, many epithelial cells, 4+ bacteria. May or may not have UTI. Urine culture pending. IV ceftriaxone pending culture results. (6) Chronic obstructive pulmonary disease: Former smoker. At least moderately severe COPD, but neither O2 nor steroid-dependent. History of exacerbation requiring intubation and mechanical ventilation. Pulmonary status stable per patient and her . Adequate oxygenation on room air. Continue usual pulmonary meds. (7) CKD (chronic kidney disease), stage III: Serum creatinine 1.01. (8) DVT prophylaxis: On warfarin with supratherapeutic INR. Now with hematoma left buttock. Hold warfarin. SCDs. Ambulate with assistance. (9) Discharge planning issues: Discharge disposition to be determined. Patient hopes to be discharged home with outpatient services. Family Medicine follow-up with Dr. Gandhi. Cardiology follow-up with Otto Cano PA-C. Orthopedics follow-up with Dr. Carcamo. History of Present Illness Chief Complaint: pain left buttock/hip Primary Care Provider: Durga Gandhi MD 83-year-old female followed by Dr. Gandhi for Family Medicine, Otto Cano PA-C for Cardiology, and Dr. Carcamo for Orthopedics. History of chronic atrial fibrillation on warfarin, COPD, and other problems noted below. Underwent revision of left total hip arthroplasty in February and had an unremarkable postoperative recovery. Seen for scheduled follow-up in orthopedic clinic about 2 weeks ago. Placed on a prednisone taper for suspected left sciatica with improvement of symptoms. Last week she was camping with her family. Experience some pain in her left buttock and left hip after fishing 2 days prior to admission. No trauma. Yesterday the pain was more severe. Needed assistance lowering herself to the toilet and hit the toilet seat with some force, but the buttock pain definitely preceded that episode. She had some leftover oxycodone from her hip surgery and took 2 doses with transient relief. Today the pain is very severe, greater than 10/10. Patient is unable to ambulate without difficulty. Allergies Allergy/AdvReac Type Severity Reaction Status Date / Time No Known Allergies Allergy Verified 11/03/18 12:01 Home Medications Home Medications Medication Instructions Recorded Confirmed Type Probiotic 1 cap PO BID 01/19/18 11/03/18 History albuterol sulfate 1 vial INHALATION Q4H PRN 01/19/18 11/03/18 History albuterol sulfate 2 - 4 puff INHALATION Q6H PRN 01/19/18 11/03/18 History diltiazem HCl 240 mg PO QAM 01/19/18 11/03/18 History fluticasone furoate-vilanterol 1 inh INHALATION QAM 01/19/18 11/03/18 History tiotropium bromide 1 inh INHALATION QPM 01/19/18 11/03/18 History warfarin 2 mg PO QPM 01/19/18 11/03/18 History acetaminophen [Pain Reliever] 1,000 mg PO Q8 PRN #90 tab 03/19/18 11/03/18 Rx sennosides [Senokot] 17.2 mg PO HS PRN #28 tab 03/19/18 11/03/18 Rx oxycodone 5 mg PO Q6H PRN #30 tab MDD 6 tabs 03/20/18 11/03/18 Rx digoxin 62.5 mcg PO HS 11/03/18 11/03/18 History Past Med/Surg History Medical History Moderate tricuspid regurgitation (Chronic) Moderate mitral regurgitation (Chronic) Moderate aortic valve regurgitation (Chronic) Moderate aortic valve stenosis (Chronic) History of hysterectomy (Chronic) Osteoporosis (Chronic) CKD (chronic kidney disease), stage III (Chronic) Chronic atrial fibrillation (Chronic) Chronic obstructive pulmonary disease (Chronic) Afib (Inactive) ON WARFARIN Cancer (Inactive) UTERINE CANCER Osteoarthritis (Inactive) Valvular heart disease (Inactive) Moderate aortic stenosis (GILLIAN 0.96cm2, mean gradient 11.9 mmhg), Moderate AR/MR/TR per 02/2018 ECHO Surgical History History of cataract surgery (Chronic) History of appendectomy (Chronic) History of total left hip replacement (Chronic) History of total right hip replacement (Chronic) History of cholecystectomy (Chronic) History of cardioversion (Inactive) History of cataract surgery (Inactive) B/L History of cholecystectomy (Inactive) History of colonoscopy (Inactive) History of dilatation and curettage (Inactive) History of esophagogastroduodenoscopy (EGD) (Inactive) History of left hip replacement (Inactive) B/L History of tooth extraction (Inactive) History of total hysterectomy (Inactive) Family History Mother Diabetes Brother Diabetes Father Cancer ? esophageal vs head & neck Mother Heart disease Social History Preferred Language: Chinese Communication Ability: Effective Taffy Candy Maker Required: No Beliefs That Will Affect Care: None marital status: Current Living Situation: Spouse current occupational status: retired Other Information That Helps Us Care for You: No Feels Safe at Home: Yes Safety Concerns: Feels Safe At This Time Smoking Status: Former smoker Cigarettes Per Day: 15 ; Do You Dip or Chew Tobacco: No ; Second Hand Exposure: No ; Tobacco Cessation Education Requested by Patient: No Hx Alcohol Use: No Hx Substance Use: No Review of Systems Constitutional: + weight loss and + weight gain (had lost some wt, gained it back with more focus on nutrition); no fever Eyes: no diplopia and no worsening vision Ear, Nose, Mouth, Throat: + hearing loss; no nasal congestion, no sinus pain/pressure and no sore throat Respiratory: + cough (chronic, unchanged), + dyspnea (chronic, stable) and + wheezing (chronic, stable) Cardiovascular: no chest pain and no edema Gastrointestinal: no nausea, no vomiting, no constipation, no diarrhea/loose stools, no blood in stools and no melena anorexic past couple days due to pain Genitourinary: no dysuria and no hematuria foul-smelling urine, but no dysuria or hematuria Musculoskeletal: as per Subjective / HPI; no joint pain and no myalgia Integumentary: + new lesions (multiple ecchymoses); no rash Endocrine: no polydipsia and no polyuria Hematologic / Lymphatic: + easy bleeding and + easy bruising; no lymphadenopathy Physical Exam Constitutional: + thin; no acute distress Eyes: PERRL, conjunctivae normal, anicteric sclerae ENMT: external ear and nose normal, oropharynx normal Ears: + hearing impairment upper and lower dentures Neck: trachea midline, no thyromegaly Respiratory: no respiratory distress Auscultation: + rhonchi (few, scattered) and + wheezes Cardiovascular: Rate/Rhythm: + irregularly irregular Heart Sounds: no gallop (none appreciated, but exam limited due to distant heart sounds), no murmur (none appreciated, but exam limited due to distant heart sounds) and no cardiac rub Vessels: no JVD and + abnormal peripheral pulses (pedal pulsed diminished) Extremities: normal capillary refill (toes < 2 sec); no calf tenderness and no edema Gastrointestinal (Abdomen): normal bowel sounds, soft, nontender, no hepatosplenomegaly Musculoskeletal: Head/Neck/Chest: neck supple Extremities: strength 5/5 throughout; no cyanosis and no clubbing tenderness and swelling over left buttock posterolaterally Skin: no rashes, warm and dry + ecchymosis (multiple, upper and lower extremities) Neurologic: PERRL, EOMI no facial palsy no dysarthria or aphasia patellar DTR's 2/2 bilat Psychiatric: Orientation: alert and oriented x 3 Affect: euthymic affect Lymphatic: no cervical lymphadenopathy Results & Data Vital Signs (Past 12 Hours) Vital Signs Temp Pulse Pulse Resp BP Pulse Ox 11/03/18 14:41 86 20 96 11/03/18 13:00 104 H 20 95 11/03/18 11:12 116/55 L 11/03/18 10:57 36.4 C L 73 20 100 Laboratory Results Laboratory Results - last 24 hr 11/03/18 11/03/18 11/03/18 12:04 12:04 12:04 WBC 19.46 H RBC 4.10 L Hgb 12.8 Hct 38.2 MCV 93.2 MCH 31.2 MCHC 33.5 RDW Std Deviation 49.2 H RDW Coeff of Yoan 14.6 H Plt Count 249 MPV 10.0 Immature Gran % (Auto) 0.7 Neut % (Auto) 78.8 Lymph % (Auto) 8.1 [place] % (Auto) 11.8 Eos % (Auto) 0.5 Baso % (Auto) 0.1 Immature Gran # (Auto) 0.14 H Neut # (Auto) 15.36 H Lymph # (Auto) 1.57 [place] # (Auto) 2.29 H Eos # (Auto) 0.09 Baso # (Auto) 0.01 ESR PT 51.0 H INR 5.6 H* Sodium 138 Potassium 3.9 Chloride 102 Carbon Dioxide 28 Anion Gap 8.0 BUN 32 H Creatinine 1.01 Est Cr Clr Drug Dosing 35.3 Est GFR ( Amer) 60.0 Est GFR (Non-Af Amer) 51.8 BUN/Creatinine Ratio 31.9 H Glucose 94 Lactate Calcium 8.2 L Total Bilirubin 1.1 H AST 15 ALT 19 Alkaline Phosphatase 70 Troponin I < 0.015 C-Reactive Protein 10.40 H Total Protein 6.0 L Albumin 3.1 L Globulin 2.9 Albumin/Globulin Ratio 1.1 Lipase 122 Urine Color Urine Appearance Urine pH Ur Specific Garrison Urine Protein Urine Glucose (UA) Urine Ketones Urine Blood Urine Nitrite Urine Bilirubin Urine Urobilinogen Ur Leukocyte Esterase Urine WBC (Auto) Urine RBC (Auto) U Hyaline Cast (Auto) U Epithel Cells (Auto) Urine Bacteria (Auto) Blood Type Antibody Screen 11/03/18 11/03/18 11/03/18 12:04 15:16 15:25 WBC RBC Hgb Hct MCV MCH MCHC RDW Std Deviation RDW Coeff of Yoan Plt Count MPV Immature Gran % (Auto) Neut % (Auto) Lymph % (Auto) [place] % (Auto) Eos % (Auto) Baso % (Auto) Immature Gran # (Auto) Neut # (Auto) Lymph # (Auto) [place] # (Auto) Eos # (Auto) Baso # (Auto) ESR 18 PT INR Sodium Potassium Chloride Carbon Dioxide Anion Gap BUN Creatinine Est Cr Clr Drug Dosing Est GFR ( Amer) Est GFR (Non-Af Amer) BUN/Creatinine Ratio Glucose Lactate 1.4 Calcium Total Bilirubin AST ALT Alkaline Phosphatase Troponin I C-Reactive Protein Total Protein Albumin Globulin Albumin/Globulin Ratio Lipase Urine Color Yellow Urine Appearance Cloudy A Urine pH 5.0 Ur Specific Garrison 1.036 H Urine Protein Negative Urine Glucose (UA) Negative Urine Ketones Negative Urine Blood Negative Urine Nitrite Positive A Urine Bilirubin Negative Urine Urobilinogen Negative Ur Leukocyte Esterase 1+ H Urine WBC (Auto) 5-10 H Urine RBC (Auto) 0-4 U Hyaline Cast (Auto) 1-5 U Epithel Cells (Auto) >30 H Urine Bacteria (Auto) 4+ H Blood Type Antibody Screen 11/03/18 15:25 WBC RBC Hgb Hct MCV MCH MCHC RDW Std Deviation RDW Coeff of Yoan Plt Count MPV Immature Gran % (Auto) Neut % (Auto) Lymph % (Auto) [place] % (Auto) Eos % (Auto) Baso % (Auto) Immature Gran # (Auto) Neut # (Auto) Lymph # (Auto) [place] # (Auto) Eos # (Auto) Baso # (Auto) ESR PT INR Sodium Potassium Chloride Carbon Dioxide Anion Gap BUN Creatinine Est Cr Clr Drug Dosing Est GFR ( Amer) Est GFR (Non-Af Amer) BUN/Creatinine Ratio Glucose Lactate Calcium Total Bilirubin AST ALT Alkaline Phosphatase Troponin I C-Reactive Protein Total Protein Albumin Globulin Albumin/Globulin Ratio Lipase Urine Color Urine Appearance Urine pH Ur Specific Garrison Urine Protein Urine Glucose (UA) Urine Ketones Urine Blood Urine Nitrite Urine Bilirubin Urine Urobilinogen Ur Leukocyte Esterase Urine WBC (Auto) Urine RBC (Auto) U Hyaline Cast (Auto) U Epithel Cells (Auto) Urine Bacteria (Auto) Blood Type O Positive Antibody Screen NEGATIVE Diagnostic Findings CT OF ABDOMEN AND PELVIS (reviewed by the undersigned and formally interpreted by Radiology) FINDINGS: Emphysema is noted within the lower lungs. There is subpleural right lower lobe opacity. Secretions within bilateral lower lobe bronchi are noted with bronchial wall thickening. Innumerable hepatic cysts are noted. There are several suspected left renal cysts. The spleen, adrenal glands and pancreas are unremarkable. Mild biliary ductal dilatation is likely related to previous cholecystectomy. There is colonic diverticulosis without evidence for acute diverticulitis. No lymphadenopathy is present. There is presacral infiltration. Evaluation of the pelvis is compromised by streak artifact from bilateral hip arthroplasties. No acute fracture is identified. Note is made of moderate asymmetric enlargement of the left gluteal musculature with an associated 9 mm hyperdense focus consistent with active extravasation. There is adjacent infiltration. There is no evidence for a bowel obstruction. Extensive plaque within the abdominal aorta is noted. A probable pancreas divisum is noted. IMPRESSION: 1. Moderate intramuscular hemorrhage within the left gluteal musculature with an associated 9 mm focus of active extravasation. Findings discussed with Dr. Barcenas at time of dictation. Mild presacral infiltration which may be related. 2. No additional sites of hemorrhage identified within the abdomen or pelvis. 3. Numerous hepatic cysts and several left renal cysts. 4. Right lower lobe subpleural opacity which could reflect atelectasis or pneumonia. Severe emphysema. Electronically signed by: Cr Marshall M.D. 11/03/2018 2:33 PM ECG Additional Comments: EKG performed at 11:12 reviewed and demonstrated AF at 130 / min, PVC's, [id number]. Code Status & VTE Plan Code Status Discussed with patient and her . No living will. She would like resuscitation attempted in the event of a cardiopulmonary arrest. VTE Prophylaxis Plan VTE Prophylaxis will be ordered: Yes (1) Hematoma of left hip Encounter type: initial encounter Qualified Code(s): S70.02XA - Contusion of left hip, initial encounter
[2018-11-03] MEDS ORDERED: SENNA 8.6 MG TAB PO PRN (16:51)
[2018-11-03] MEDS ORDERED: ACETAMINOPHEN 500 MG TAB PO PRN (16:51)
[2018-11-03] MEDS ORDERED: ALBUTEROL 0.083% NEBU SOLN 3 ML VIAL INH PRN (17:06)
--- NOTE | 2018-11-03 17:32 | Emergency Department Note ---
Entered by Carmen Fine acting as a scribe for History of Present Illness General Chief complaint: Hip Pain Stated complaint: EXTREME PAIN LEFT HIP,SWELLING Time Seen by Provider: 11/03/18 11:43 Source: patient and family History of Present Illness Provider complaint: left sided posterior hip pain Onset (ago): day(s) 2 Location: hip and left (posterior) Pain Consistency: + other (episode) Maximum Pain Intensity: 10 Exacerbated By: + movement and + other (palpation of the area) Associated symptoms: + denies other symptoms (injury, fall, dysuria, numbness, pain in legs) and + other (urinating more frequently, has not eaten in 2 days, cannot stand erect); no fever/chills, no nausea/vomiting and no weakness The patient is an 83 year old female who presents to the ED with complaints of an episode of left sided posterior hip pain that started 2 days ago. The patient notes that the onset of her pain was very sudden and her hip immediately started swelling. The patient notes that her pain is exacerbated by movement and palpation of the area. The patient states that she has had both of her hips replaced 20 years ago, and the left hip redone last year. Per , the patient can usually stand very erect, but as of 2 day ago, she no longer can. The patient states that she has been urinating more frequently and has not eaten for 2 days. The patient denies injury, fall, fever, chills, vomiting, dysuria, numbness, weakness or pain in her legs. Home Medications Home Medications Medication Instructions Recorded Confirmed Type Probiotic 1 cap PO BID 01/19/18 11/03/18 History albuterol sulfate 1 vial INHALATION Q4H PRN 01/19/18 11/03/18 History albuterol sulfate 2 - 4 puff INHALATION Q6H PRN 01/19/18 11/03/18 History diltiazem HCl 240 mg PO QAM 01/19/18 11/03/18 History fluticasone furoate-vilanterol 1 inh INHALATION QAM 01/19/18 11/03/18 History tiotropium bromide 1 inh INHALATION QPM 01/19/18 11/03/18 History warfarin 2 mg PO QPM 01/19/18 11/03/18 History acetaminophen [Pain Reliever] 1,000 mg PO Q8 PRN #90 tab 03/19/18 11/03/18 Rx sennosides [Senokot] 17.2 mg PO HS PRN #28 tab 03/19/18 11/03/18 Rx oxycodone 5 mg PO Q6H PRN #30 tab MDD 6 tabs 03/20/18 11/03/18 Rx digoxin 62.5 mcg PO HS 11/03/18 11/03/18 History Allergies Allergy/AdvReac Type Severity Reaction Status Date / Time No Known Allergies Allergy Verified 11/03/18 12:01 Past Med/Surg History Medical History Moderate tricuspid regurgitation (Chronic) Moderate mitral regurgitation (Chronic) Moderate aortic valve regurgitation (Chronic) Moderate aortic valve stenosis (Chronic) History of hysterectomy (Chronic) Osteoporosis (Chronic) CKD (chronic kidney disease), stage III (Chronic) Chronic atrial fibrillation (Chronic) Chronic obstructive pulmonary disease (Chronic) Afib (Inactive) ON WARFARIN Cancer (Inactive) UTERINE CANCER Osteoarthritis (Inactive) Valvular heart disease (Inactive) Moderate aortic stenosis (GILLIAN 0.96cm2, mean gradient 11.9 mmhg), Moderate AR/MR/TR per 02/2018 ECHO Surgical History History of cataract surgery (Chronic) History of appendectomy (Chronic) History of total left hip replacement (Chronic) History of total right hip replacement (Chronic) History of cholecystectomy (Chronic) History of cardioversion (Inactive) History of cataract surgery (Inactive) B/L History of cholecystectomy (Inactive) History of colonoscopy (Inactive) History of dilatation and curettage (Inactive) History of esophagogastroduodenoscopy (EGD) (Inactive) History of left hip replacement (Inactive) B/L History of tooth extraction (Inactive) History of total hysterectomy (Inactive) Family History Mother Diabetes Brother Diabetes Father Cancer ? esophageal vs head & neck Mother Heart disease Social History Preferred Language: [place] Communication Ability: Effective Pot Pusher Required: No Beliefs That Will Affect Care: None marital status: Current Living Situation: Spouse current occupational status: retired Other Information That Helps Us Care for You: No Feels Safe at Home: Yes Safety Concerns: Feels Safe At This Time Smoking Status: Former smoker Cigarettes Per Day: 15 ; Do You Dip or Chew Tobacco: No ; Second Hand Exposure: No ; Tobacco Cessation Education Requested by Patient: No Hx Alcohol Use: No Hx Substance Use: No Review of Systems See HPI for pertinent positives & negatives. and A total of 10 systems reviewed and were otherwise negative Physical Exam Vital Signs Vital Signs - 24 hr 11/03/18 10:57 11/03/18 11:12 11/03/18 11:28 Temperature 36.4 C L Temperature Source Oral Sepsis Recent Fever Within 48 Hours No Sepsis Action Taken by Nursing No Action Required Pulse Rate 73 Pulse Rate [Right Finger] Respiratory Rate 20 Respiratory Effort / Characteristics Non-Labored Spontaneous Respiratory Depth Normal Respiratory Pattern Regular Blood Pressure [Left Arm] 116/55 L Blood Pressure Mean [Left Arm] 75 Pulse Oximetry 100 Oxygen Delivery Method Room Air Room Air 11/03/18 13:00 11/03/18 14:41 Temperature Temperature Source Sepsis Recent Fever Within 48 Hours Sepsis Action Taken by Nursing Pulse Rate Pulse Rate [Right Finger] 104 H 86 Respiratory Rate 20 20 Respiratory Effort / Characteristics Non-Labored Spontaneous Respiratory Depth Normal Respiratory Pattern Regular Blood Pressure [Left Arm] Blood Pressure Mean [Left Arm] Pulse Oximetry 95 96 Oxygen Delivery Method Room Air Room Air General: Uncomfortable appearing older female complaining of left hip pain and swelling that is worse with movement. HEENT: Normal cephalic atraumatic. Pupils are equal round and reactive to light. Extraocular movements are intact. Oropharynx is mildly dry. No swelling of the mouth lips or tongue. Neck: Supple with a midline trachea. No meningeal signs or stiffness, no JVD or bruits. No Stridor. Chest: Clear to auscultation bilaterally. No wheezes or rhonchi. No increased work of breathing. Heart: Regularly irregular and tachycardic, consistent with atrial fibrillation. Abdomen: Soft nontender, nondistended without rebound guarding or rigidity. Extremities: No cyanosis clubbing or edema. No calf tenderness or asymmetry Spine/Back. Left hip has moderate swelling laterally and posteriorly with no redness or warmth. No CVA tenderness Skin: Good turgor without rashes. Neurologic exam: Cranial nerves two through 12 are intact. Motor and sensation are intact and symmetrical throughout. Course 1145: Past medical records reviewed. The patient was evaluated in room A10. A complete history and physical exam was performed. 1337: I reevaluated the patient and she appears to be feeling better. We are waiting for the CT results. 1433: The patient's heart rate is in the 80's and she is feeling much better. I updated her on the test results and plan for admission. She verbally agrees and understands. 1441: I discussed the patient's case with Dr. Tima Winston. He will evaluated the patient for further management. Consultations Consultation #1: I discussed the patient's case with Dr. Tima Winston. He will evaluated the patient for further management. Time: 14:41 Administered Medications Ioversol (Optiray 320 100ml) 94 ml IV ONCE PRN PRN Reason: Interaction Checking Stop: 11/07/18 14:06 Last Admin: 11/03/18 14:07 Dose: 94 ml Documented by: [id number] Discontinued Medications Sodium Chloride (Nss 1000ml) 1,000 mls @ 999 mls/hr IV .Q1H1M ONE Stop: 11/03/18 12:52 Last Infusion: 11/03/18 13:58 Dose: 0 mls/hr Documented by: [id number] Admin: 11/03/18 12:14 Dose: 999 mls/hr Documented by: [id number] Phytonadione 5 mg/ Sodium (Chloride) 50.5 mls @ 101 mls/hr IV ONE ONE Stop: 11/03/18 15:00 Last Infusion: 11/03/18 15:25 Dose: 0 mls/hr Documented by: [id number] Admin: 11/03/18 14:52 Dose: 101 mls/hr Documented by: [id number] Morphine Sulfate (Morphine Sulfate) 2 mg IV NOW STA Stop: 11/03/18 11:54 Last Admin: 11/03/18 12:14 Dose: 2 mg Documented by: [id number] Ondansetron HCl (Zofran) 4 mg IV NOW STA Stop: 11/03/18 11:54 Last Admin: 11/03/18 12:14 Dose: 4 mg Documented by: [id number] Medical Decision Making Differential Diagnosis Differentials include infection, fracture, hematoma, rapid atrial fibrillation, cardiac disease, metabolic and electrolyte abnormality. Medical Records Attestation: I reviewed the patient's medical records. Home Medications Current Medication List: was personally reviewed by me Laboratory Data Attestation: I reviewed the patient's lab results. Result diagrams: 11/03/18 12:04 11/03/18 12:04 Lab Results 11/03/18 11/03/18 11/03/18 Range/Units 12:04 12:04 12:04 WBC 19.46 H (4.8-10.8) K/uL RBC 4.10 L (4.2-5.4) M/uL Hgb 12.8 (12.0-16.0) g/dL Hct 38.2 (37-47) % MCV 93.2 (80-100) fL MCH 31.2 (25-34) pg MCHC 33.5 (32-36) g/dL RDW Std Deviation 49.2 H (36.4-46.3) fL RDW Coeff of Yoan 14.6 H (11.5-14.5) % Plt Count 249 (130-400) K/uL MPV 10.0 (7.4-10.4) fL Immature Gran % (Auto) 0.7 % Neut % (Auto) 78.8 % Lymph % (Auto) 8.1 % [place] % (Auto) 11.8 % Eos % (Auto) 0.5 % Baso % (Auto) 0.1 % Immature Gran # (Auto) 0.14 H (0.00-0.02) K/uL Neut # (Auto) 15.36 H (1.4-6.5) K/uL Lymph # (Auto) 1.57 (1.2-3.4) K/uL [place] # (Auto) 2.29 H (0.11-0.59) K/uL Eos # (Auto) 0.09 (0-0.5) K/uL Baso # (Auto) 0.01 (0-0.2) K/uL ESR (0-21) mm/hr PT 51.0 H (9.0-12.0) Seconds INR 5.6 H* (0.9-1.1) Sodium 138 (136-145) mmol/L Potassium 3.9 (3.5-5.1) mmol/L Chloride 102 (98-107) mmol/L Carbon Dioxide 28 (21-32) mmol/L Anion Gap 8.0 (3-11) BUN 32 H (7-18) mg/dl Creatinine 1.01 (0.6-1.2) mg/dl Est Cr Clr Drug Dosing 35.3 ml/min Est GFR ( Amer) 60.0 Est GFR (Non-Af Amer) 51.8 BUN/Creatinine Ratio 31.9 H (10-20) Glucose 94 (70-99) mg/dl Lactate (0.4-2.0) mmol/L Calcium 8.2 L (8.5-10.1) mg/dl Total Bilirubin 1.1 H (0.2-1) mg/dl AST 15 (15-37) U/L ALT 19 (12-78) U/L Alkaline Phosphatase 70 (45-117) U/L Troponin I < 0.015 (0-0.045) ng/ml C-Reactive Protein 10.40 H (0-0.29) mg/dl Total Protein 6.0 L (6.4-8.2) gm/dl Albumin 3.1 L (3.4-5.0) gm/dl Globulin 2.9 (2.5-4.0) gm/dl Albumin/Globulin Ratio 1.1 (0.9-2) Lipase 122 (73-393) U/L Urine Color Urine Appearance (Clear) Urine pH (4.5-7.5) Ur Specific [place] (1.000-1.030) Urine Protein (Negative) Urine Glucose (UA) (Negative) Urine Ketones (Negative) Urine Blood (Negative) Urine Nitrite (Negative) Urine Bilirubin (Negative) Urine Urobilinogen (Negative) Ur Leukocyte Esterase (Negative) Urine WBC (Auto) (0-5) /hpf Urine RBC (Auto) (0-4) /hpf U Hyaline Cast (Auto) (0-5) /lpf U Epithel Cells (Auto) (0-5) /lpf Urine Bacteria (Auto) (Negative) Blood Type Antibody Screen 11/03/18 11/03/18 11/03/18 Range/Units 12:04 15:16 15:25 WBC (4.8-10.8) K/uL RBC (4.2-5.4) M/uL Hgb (12.0-16.0) g/dL Hct (37-47) % MCV (80-100) fL MCH (25-34) pg MCHC (32-36) g/dL RDW Std Deviation (36.4-46.3) fL RDW Coeff of Yoan (11.5-14.5) % Plt Count (130-400) K/uL MPV (7.4-10.4) fL Immature Gran % (Auto) % Neut % (Auto) % Lymph % (Auto) % [place] % (Auto) % Eos % (Auto) % Baso % (Auto) % Immature Gran # (Auto) (0.00-0.02) K/uL Neut # (Auto) (1.4-6.5) K/uL Lymph # (Auto) (1.2-3.4) K/uL [place] # (Auto) (0.11-0.59) K/uL Eos # (Auto) (0-0.5) K/uL Baso # (Auto) (0-0.2) K/uL ESR 18 (0-21) mm/hr PT (9.0-12.0) Seconds INR (0.9-1.1) Sodium (136-145) mmol/L Potassium (3.5-5.1) mmol/L Chloride (98-107) mmol/L Carbon Dioxide (21-32) mmol/L Anion Gap (3-11) BUN (7-18) mg/dl Creatinine (0.6-1.2) mg/dl Est Cr Clr Drug Dosing ml/min Est GFR ( Amer) Est GFR (Non-Af Amer) BUN/Creatinine Ratio (10-20) Glucose (70-99) mg/dl Lactate 1.4 (0.4-2.0) mmol/L Calcium (8.5-10.1) mg/dl Total Bilirubin (0.2-1) mg/dl AST (15-37) U/L ALT (12-78) U/L Alkaline Phosphatase (45-117) U/L Troponin I (0-0.045) ng/ml C-Reactive Protein (0-0.29) mg/dl Total Protein (6.4-8.2) gm/dl Albumin (3.4-5.0) gm/dl Globulin (2.5-4.0) gm/dl Albumin/Globulin Ratio (0.9-2) Lipase (73-393) U/L Urine Color Yellow Urine Appearance Cloudy A (Clear) Urine pH 5.0 (4.5-7.5) Ur Specific [place] 1.036 H (1.000-1.030) Urine Protein Negative (Negative) Urine Glucose (UA) Negative (Negative) Urine Ketones Negative (Negative) Urine Blood Negative (Negative) Urine Nitrite Positive A (Negative) Urine Bilirubin Negative (Negative) Urine Urobilinogen Negative (Negative) Ur Leukocyte Esterase 1+ H (Negative) Urine WBC (Auto) 5-10 H (0-5) /hpf Urine RBC (Auto) 0-4 (0-4) /hpf U Hyaline Cast (Auto) 1-5 (0-5) /lpf U Epithel Cells (Auto) >30 H (0-5) /lpf Urine Bacteria (Auto) 4+ H (Negative) Blood Type Antibody Screen 11/03/18 Range/Units 15:25 WBC (4.8-10.8) K/uL RBC (4.2-5.4) M/uL Hgb (12.0-16.0) g/dL Hct (37-47) % MCV (80-100) fL MCH (25-34) pg MCHC (32-36) g/dL RDW Std Deviation (36.4-46.3) fL RDW Coeff of Yoan (11.5-14.5) % Plt Count (130-400) K/uL MPV (7.4-10.4) fL Immature Gran % (Auto) % Neut % (Auto) % Lymph % (Auto) % [place] % (Auto) % Eos % (Auto) % Baso % (Auto) % Immature Gran # (Auto) (0.00-0.02) K/uL Neut # (Auto) (1.4-6.5) K/uL Lymph # (Auto) (1.2-3.4) K/uL [place] # (Auto) (0.11-0.59) K/uL Eos # (Auto) (0-0.5) K/uL Baso # (Auto) (0-0.2) K/uL ESR (0-21) mm/hr PT (9.0-12.0) Seconds INR (0.9-1.1) Sodium (136-145) mmol/L Potassium (3.5-5.1) mmol/L Chloride (98-107) mmol/L Carbon Dioxide (21-32) mmol/L Anion Gap (3-11) BUN (7-18) mg/dl Creatinine (0.6-1.2) mg/dl Est Cr Clr Drug Dosing ml/min Est GFR ( Amer) Est GFR (Non-Af Amer) BUN/Creatinine Ratio (10-20) Glucose (70-99) mg/dl Lactate (0.4-2.0) mmol/L Calcium (8.5-10.1) mg/dl Total Bilirubin (0.2-1) mg/dl AST (15-37) U/L ALT (12-78) U/L Alkaline Phosphatase (45-117) U/L Troponin I (0-0.045) ng/ml C-Reactive Protein (0-0.29) mg/dl Total Protein (6.4-8.2) gm/dl Albumin (3.4-5.0) gm/dl Globulin (2.5-4.0) gm/dl Albumin/Globulin Ratio (0.9-2) Lipase (73-393) U/L Urine Color Urine Appearance (Clear) Urine pH (4.5-7.5) Ur Specific [place] (1.000-1.030) Urine Protein (Negative) Urine Glucose (UA) (Negative) Urine Ketones (Negative) Urine Blood (Negative) Urine Nitrite (Negative) Urine Bilirubin (Negative) Urine Urobilinogen (Negative) Ur Leukocyte Esterase (Negative) Urine WBC (Auto) (0-5) /hpf Urine RBC (Auto) (0-4) /hpf U Hyaline Cast (Auto) (0-5) /lpf U Epithel Cells (Auto) (0-5) /lpf Urine Bacteria (Auto) (Negative) Blood Type O Positive Antibody Screen NEGATIVE Imaging Data Radiologist's Impression: Radiology results as stated below per my review and the radiologist's interpretation: CT OF THE ABDOMEN AND PELVIS WITH CONTRAST CLINICAL HISTORY: Left hip pain and swelling. COMPARISON STUDY: CT of the abdomen and pelvis July 21, 2014. Left hip radiographs March 10, 20182018. TECHNIQUE: Following IV administration of 94 mL of Optiray-320, axial images of the abdomen and pelvis were obtained from the lung bases to the proximal femurs. Images were reviewed in the axial, sagittal, and coronal planes. IV contrast was administered without complication. Automated exposure control was utilized for the study. A dose lowering technique was utilized adhering to the principles of ALARA. Oral contrast was administered. CT DOSE: 300.19 mGy.cm FINDINGS: Emphysema is noted within the lower lungs. There is subpleural right lower lobe opacity. Secretions within bilateral lower lobe bronchi are noted with bronchial wall thickening. Innumerable hepatic cysts are noted. There are several suspected left renal cysts. The spleen, adrenal glands and pancreas are unremarkable. Mild biliary ductal dilatation is likely related to previous cholecystectomy. There is colonic diverticulosis without evidence for acute diverticulitis. No lymphadenopathy is present. There is presacral infiltration. Evaluation of the pelvis is compromised by streak artifact from bilateral hip arthroplasties. No acute fracture is identified. Note is made of moderate asymmetric enlargement of the left gluteal musculature with an associated 9 mm hyperdense focus consistent with active extravasation. There is adjacent infiltration. There is no evidence for a bowel obstruction. Extensive plaque within the abdominal aorta is noted. A probable pancreas divisum is noted. IMPRESSION: 1. Moderate intramuscular hemorrhage within the left gluteal musculature with an associated 9 mm focus of active extravasation. Findings discussed with Dr. Barcneas at time of dictation. Mild presacral infiltration which may be related. 2. No additional sites of hemorrhage identified within the abdomen or pelvis. 3. Numerous hepatic cysts and several left renal cysts. 4. Right lower lobe subpleural opacity which could reflect atelectasis or pneumonia. Severe emphysema. Electronically signed by: Cr Marshall M.D. 11/03/2018 2:33 PM ECG Data Attestation: I personally reviewed and interpreted this ECG as follows: Indication: tachycardia Rate (beats per minute): 131 Rhythm: atrial fibrillation (with RVR) Findings: + nonspecific-ST abn and + PVC (ocassional) Comparison ECG Date: from (03/05/2018) Change: the following changes noted (rate increased) Blood Pressure Blood Pressure Findings: Low blood pressure Blood Pressure Disposition: further management by hospitalist PEE Narrative This patient comes in as described above. She was placed in room A10. She is having left buttock/hip pain. She has had no fall or trauma. She is on Coumadin. The pain is severe and worse when she moves and it has been going on for couple days. No numbness or weakness or change in bowel or bladder function. She initially was tachycardic with rapid A. fib seen on the monitor. During this episode however she was in significant pain and tells me she has not had food or drink for the last couple days because she has been in so much pain. She does look dehydrated. IV access was established was given an IV fluid bolus as well as morphine 2 mgs IV and Zofran 4 mgs IV. With these measures she felt a lot better and pulse came down into the 80s. Her white count was elevated at 19 however looking back through her chart it tends to be elevated. Her hemoglobin is stable. Her INR was elevated in the 5 range. She has no significant electrolyte or metabolic abnormalities. She was found to have a hematoma in the left buttocks with some extravasation. I talked to her about her Coumadin, she is on this for chronic A. fib she does not have an artificial heart valve or history of DVT/PE. I gave her vitamin K 5 mg IV. I do think she needs to be admitted/observed for monitoring of her hemoglobin reversal of her anticoagulation, she will also need pain management and does have ambulatory dysfunction due to the pain at this point. I do not think that she is likely septic but given her elevated white count, I did add cultures and lactic acid. Her lactic acid is not elevated and she is afebrile as well. I have consulted Dr. Yanes to see her in the ER. Impression & Plan Acute hip pain, Supratherapeutic INR, Rapid atrial fibrillation, Acute dehydration, Hematoma of left hip, Ambulatory dysfunction Discharge Plan Visit Data *Final* Discharge Date/Time: 11/03/18 16:21 Chief Complaint: Hip Pain Stated Complaint: EXTREME PAIN LEFT HIP,SWELLING ED Provider: Lyle Barcenas Discharge Problem: Acute hip pain, Supratherapeutic INR, Rapid atrial fibrillation, Acute dehydration, Hematoma of left hip, Ambulatory dysfunction Patient Disposition: Admitted As Inpatient Discharge Instructions Interventions: ED Discharge Assessment Last Done: 11/03/18 16:21 Discharge Problem: Acute hip pain Qualifiers: Laterality: left Qualified Code(s): M25.552 - Pain in left hip Hematoma of left hip Qualifiers: Encounter type: initial encounter Qualified Code(s): S70.02XA - Contusion of left hip, initial encounter The scribe's documentation has been prepared under my direction and personally reviewed by me in its entirety. I confirm that the note above accurately reflects all work, treatment, procedures, and medical decision making performed by me.
[2018-11-03] MEDS: cefTRIAXone SODIUM 1,000 MG in DEXTROSE 5% 50 ML IV SCH (18:33)
[2018-11-03] MEDS: OXYCODONE HCL IR 5 MG TAB (IMMEDIATE RELEASE) PO PRN (19:45)
[2018-11-03] MEDS: DIGOXIN 0.125 MG TAB PO SCH (19:46)
[2018-11-03] MEDS: ALBUTEROL HFA 8 GM INHALER INH PRN (19:50)
[2018-11-03] MEDS: TIOTROPIUM BROMIDE 5 PUFF/90 MCG INH INH SCH (19:52)
[2018-11-03] MEDS ORDERED: DIGOXIN 0.25 MG TAB PO SCH (21:00)
[2018-11-04] MEDS: BREO ELLIPTA - ORDER AWAITING ACTION SCH ×4 (01:21→22:50)
[2018-11-04 05:38] LABS: Hematocrit (blood only) 31.8 % (37-47); Hemoglobin 10.6 g/dL (12.0-16.0); Mean Corpuscular Hemoglobin 30.9 pg (25-34); Mean Corpuscular Hgb Conc 33.3 g/dL (32-36); Mean Corpuscular Volume 92.7 fL (80-100); Platelet Count 207 K/uL (130-400); RDW Coefficient of Variation 14.4 % (11.5-14.5); Red Blood Count 3.43 M/uL (4.2-5.4); White Blood Count 18.57 K/uL (4.8-10.8)
[2018-11-04 05:57] LABS: Calcium 7.5 mg/dl (8.5-10.1); Est GFR (African American) 79.6; Est GFR (Non-African American) 68.7; Magnesium 2.1 mg/dl (1.8-2.4); Potassium 3.7 mmol/L (3.5-5.1)
[2018-11-04 06:33] LABS: INR 1.3 (0.9-1.1)
--- NOTE | 2018-11-04 07:21 | XRay Report ---
XR chest 1V portable CLINICAL HISTORY: COPD disposition COMPARISON STUDY: 03/21/2018 FINDINGS: Progressive basilar interstitial change. Slight chronic blunting of the lateral costophreni c angles bilaterally. Underlying emphysematous change. IMPRESSION: Emphysematous change with chronic fibrosis. Developing pulmonary vascular congestion The above report was generated using voice recognition software. It may contain grammatical, syntax or spelling errors. Electronically signed by: Otto Laboy M.D. 11/04/2018 7:19 AM
[2018-11-04] MEDS: LACTOBACILLUS ACIDOPHILUS (FLORANEX) TAB PO SCH ×3 (07:37→17:26)
[2018-11-04] MEDS: dilTIAZem HCL 240 MG CAPCR PO SCH (08:08)
[2018-11-04] MEDS ORDERED: FLUTICASONE FUROATE VILANTEROL INH SCH (09:00)
--- NOTE | 2018-11-04 14:14 | Hospitalist Progress Note ---
Date of Service November 04, 2018 Assessment & Plan (1) Hematoma of left hip: Presented on admission with severe pain in her left buttock with INR 5.6 CT abd/pelvis demonstrated Moderate intramuscular hemorrhage within the left gluteal musculature with an associated 9 mm focus of active extravasation. Tachycardic at time of presentation; blood pressures stable. Received IV vit K in the ER, INR 1.3 today Hemoglobin 12.8 on admission, dropped to 10.6 today Will continue hold coumadin for now Continue monitor H/H Continue pain control Continue PT/OT (2) Supratherapeutic INR: INR 5.6 on admission received Vit K yesterday, INR 1.3 today Continue to hold coumadin (3) Chronic atrial fibrillation: rate has been btw 100 - 120 today Continue digoxin, diltiazem Digoxin 0.6 Coumadin on hold due to left buttock hematoma. Continue monitor closely (4) UTI (urinary tract infection): Elevated WBC UA positive for nitrite/leukocytes/bacteria Urine cx positive for Ecoli Continue Rocephin IV Follow up on urine sensitivity (5) Chronic obstructive pulmonary disease: History of exacerbation requiring intubation and mechanical ventilation. Denies any SOB Saturated well on RA Oxygen saturation dropped during physical therapy Will consider to get a 2 step on discharge (6) CKD (chronic kidney disease), stage III: Creatinine 0.8 today Stable (7) DVT prophylaxis: Warfarin on hold due to Left buttock hematoma SCDs. Ambulate with assistance. (8) Discharge planning issues: Family Medicine follow-up with Dr. Gandhi. Cardiology follow-up with Otto Cano PA-C. Orthopedics follow-up with Dr. Carcamo. Subjective Pt was seen and examined. Lying in bed with no distress Pt said that she does have some pain around her left hip buttock area She just bumped her right arm on the tray table and caused a laceration She walked with therapy this morning and was desaturated Denies any chest pain, palpitation, dizziness and SOB Physical Exam Physical Exam: General- No acute distress Head- atraumatic Eyes- PERRL, EOMI, ENT- +decrease hearing function Neck- supple, no JVD Lungs- clear to auscultation Heart- irregular rhythm; no murmur Abdomen- normal bowel sounds, soft, nontender Extremities- no calf tenderness, Left buttock swelling and tenderness , right arm laceration Neuro- alert, oriented x 3; PERRL, EOMI; no facial palsy; no dysarthria Skin- warm & dry, ecchymoses Results & Data Vital Signs (Past 12 Hours) Vital Signs Temp Pulse Pulse Resp BP BP Pulse Ox 11/04/18 11:30 36.7 C 106 H 16 110/60 11/04/18 07:25 120 H 18 118/70 92 11/04/18 07:15 116 H 11/04/18 03:00 36.8 C 113 H 24 110/73 90 (1) Hematoma of left hip Encounter type: initial encounter Qualified Code(s): S70.02XA - Contusion of left hip, initial encounter
[2018-11-04] MEDS: ALBUTEROL HFA 8 GM INHALER INH PRN (15:43)
[2018-11-04] MEDS: cefTRIAXone SODIUM 1,000 MG in DEXTROSE 5% 50 ML IV SCH (17:27)
[2018-11-04] MEDS: DIGOXIN 0.125 MG TAB PO SCH (21:21)
[2018-11-04] MEDS: TIOTROPIUM BROMIDE 5 PUFF/90 MCG INH INH SCH (21:21)
[2018-11-04] MEDS: OXYCODONE HCL IR 5 MG TAB (IMMEDIATE RELEASE) PO PRN (21:26)
[2018-11-05 06:59] LABS: Hematocrit (blood only) 31.1 % (37-47); Hemoglobin 10.3 g/dL (12.0-16.0); Mean Corpuscular Hemoglobin 30.6 pg (25-34); Mean Corpuscular Hgb Conc 33.1 g/dL (32-36); Mean Corpuscular Volume 92.3 fL (80-100); Mean Platelet Volume 9.9 fL (7.4-10.4); Platelet Count 200 K/uL (130-400); RDW Coefficient of Variation 14.2 % (11.5-14.5); RDW Standard Deviation 47.5 fL (36.4-46.3); Red Blood Count 3.37 M/uL (4.2-5.4); White Blood Count 16.63 K/uL (4.8-10.8)
[2018-11-05] MEDS: LACTOBACILLUS ACIDOPHILUS (FLORANEX) TAB PO SCH ×2 (08:03→12:32)
[2018-11-05] MEDS: dilTIAZem HCL 240 MG CAPCR PO SCH (08:06)
[2018-11-05] MEDS: BREO ELLIPTA - ORDER AWAITING ACTION SCH (08:06)
[2018-11-05 11:52] LABS: INR 1.1 (0.9-1.1); Prothrombin Time 11.4 Seconds (9.0-12.0)
[2018-11-05] MEDS ORDERED: cephALEXin 500 MG CAP PO SCH (13:30)
--- NOTE | 2018-11-05 15:12 | Hospitalist Progress Note ---
Date of Service November 05, 2018 Assessment & Plan (1) Hematoma of left hip: Presented on admission with severe pain in her left buttock with INR 5.6 Due to fall while on coumadin with INR supratherapeutic CT abd/pelvis demonstrated Moderate intramuscular hemorrhage within the left gluteal musculature with an associated 9 mm focus of active extravasation. Tachycardic at time of presentation; blood pressures stable. Received IV vit K in the ER, INR 1.3 today Hemoglobin 12.8 on admission, dropped to 10.6-->10.3 today Will continue hold coumadin for now, can resume coumadin after her next follow appointment with PCP on Check CBC on Continue pain control Continue PT/OT fall precaution (2) Supratherapeutic INR: INR 5.6 on admission received Vit K yesterday, INR 1 today Continue to hold coumadin (3) Chronic atrial fibrillation: HR below 100 today Continue digoxin, diltiazem Digoxin 0.6 Coumadin on hold due to left buttock hematoma. Continue monitor closely (4) UTI (urinary tract infection): Elevated WBC UA positive for nitrite/leukocytes/bacteria Urine cx positive for Ecoli Received Rocephin IV for 2 days, then transition to Keflex Will continue Keflex x 5 days (5) Chronic obstructive pulmonary disease: History of exacerbation requiring intubation and mechanical ventilation. Denies any SOB Saturated well on RA Oxygen saturation dropped during physical therapy Had 2 step exercise done today that suggested 2L NC with exertion/ambulation case management was notified for the oxygen supplement (6) CKD (chronic kidney disease), stage III: Creatinine 0.8 today Stable (7) DVT prophylaxis: Warfarin on hold due to Left buttock hematoma SCDs. Ambulate with assistance. (8) Discharge planning issues: Family Medicine follow-up with Dr. Jackson on 11/07 @ 1:15 PM Cardiology follow-up with Otto Cano PA-C. Orthopedics follow-up with Dr. Carcamo. Subjective Pt was seen and examined Lying in bed with no distress with family member at bedside Pt said that she feels much better today She said that the pain in her Left buttock area improves She had 2 step done today that suggest oxygen with ambulation Denies any chest pain, palpitation, dizziness and SOB Physical Exam Physical Exam: General- No acute distress Head- atraumatic Eyes- PERRL, EOMI, ENT- +decrease hearing function Neck- supple, no JVD Lungs- clear to auscultation Heart- irregular rhythm; no murmur Abdomen- normal bowel sounds, soft, nontender Extremities- no calf tenderness, Left buttock swelling, ecchymoses and tenderness , right arm laceration Neuro- alert, oriented x 3; PERRL, EOMI; no facial palsy; no dysarthria Skin- warm & dry, ecchymoses Results & Data Vital Signs (Past 12 Hours) Vital Signs Temp Pulse Pulse Pulse Pulse Pulse Pulse 11/05/18 14:28 90 99 H 86 89 11/05/18 14:03 88 11/05/18 11:01 36.7 C 107 H 11/05/18 08:06 11/05/18 07:45 96 H 11/05/18 07:04 36.9 C 108 H 11/05/18 04:24 37.4 C 104 H Resp Resp Resp Resp Resp BP Pulse Ox 11/05/18 14:28 26 H 28 H 22 16 11/05/18 14:03 16 92 11/05/18 11:01 16 99/52 L 93 11/05/18 08:06 110/60 11/05/18 07:45 11/05/18 07:04 18 95/59 L 95 11/05/18 04:24 18 93/53 L 93 Pulse Ox Pulse Ox Pulse Ox Pulse Ox 11/05/18 14:28 90 83 L 92 92 11/05/18 14:03 11/05/18 11:01 11/05/18 08:06 11/05/18 07:45 11/05/18 07:04 11/05/18 04:24 (1) Hematoma of left hip Encounter type: initial encounter Qualified Code(s): S70.02XA - Contusion of left hip, initial encounter
--- NOTE | 2018-11-08 09:18 | Discharge Summary ---
Date of Service November 05, 2018 Admission HPI Per Admitting Provider 83-year-old female followed by Dr. Gandhi for Family Medicine, Otto Cano PA-C for Cardiology, and Dr. Carcamo for Orthopedics. History of chronic atrial fibrillation on warfarin, COPD, and other problems noted below. Underwent revision of left total hip arthroplasty in February and had an unremarkable postoperative recovery. Seen for scheduled follow-up in orthopedic clinic about 2 weeks ago. Placed on a prednisone taper for suspected left sciatica with improvement of symptoms. Last week she was camping with her family. Experience some pain in her left buttock and left hip after fishing 2 days prior to admission. No trauma. Yesterday the pain was more severe. Needed assistance lowering herself to the toilet and hit the toilet seat with some force, but the buttock pain definitely preceded that episode. She had some leftover oxycodone from her hip surgery and took 2 doses with transient relief. Today the pain is very severe, greater than 10/10. Patient is unable to ambulate without difficulty. Admission Exam Per Admitting Provider Constitutional: + weight loss and + weight gain (had lost some wt, gained it back with more focus on nutrition); no fever Eyes: no diplopia and no worsening vision Ear, Nose, Mouth, Throat: + hearing loss; no nasal congestion, no sinus pain/pressure and no sore throat Respiratory: + cough (chronic, unchanged), + dyspnea (chronic, stable) and + wheezing (chronic, stable) Cardiovascular: no chest pain and no edema Gastrointestinal: no nausea, no vomiting, no constipation, no diarrhea/loose stools, no blood in stools and no melena anorexic past couple days due to pain Genitourinary: no dysuria and no hematuria foul-smelling urine, but no dys uria or hematuria Musculoskeletal: as per Subjective / HPI; no joint pain and no myalgia Integumentary: + new lesions (multiple ecchymoses); no rash Endocrine: no polydipsia and no polyuria Hematologic / Lymphatic: + easy bleeding and + easy bruising; no lymphadenopathy Principal Diagnosis Hematoma of left hip: UTI (urinary tract infection): Supratherapeutic INR: Chronic atrial fibrillation: Chronic obstructive pulmonary disease: CKD (chronic kidney disease), stage III: Discharge Exam General- No acute distress Head- atraumatic Eyes- PERRL, EOMI, ENT- +decrease hearing function Neck- supple, no JVD Lungs- clear to auscultation Heart- irregular rhythm; no murmur Abdomen- normal bowel sounds, soft, nontender Extremities- no calf tenderness, Left buttock swelling, ecchymoses and tenderness , right arm laceration Neuro- alert, oriented x 3; PERRL, EOMI; no facial palsy; no dysarthria Skin- warm & dry, ecchymoses Discharge Data Allergies Allergy/AdvReac Type Severity Reaction Status Date / Time No Known Allergies Allergy Verified 11/03/18 12:01 Consultations 11/03/18 14:41 ED Decision to Admit Stat Ordered Studies 11/03/18 11:52 CT abd pelvis oral and IV con Stat XR chest 1V portable CLINICAL HISTORY: COPD disposition COMPARISON STUDY: 03/21/2018 FINDINGS: Progressive basilar interstitial change. Slight chronic blunting of the lateral costophrenic angles bilaterally. Underlying emphysematous change. IMPRESSION: Emphysematous change with chronic fibrosis. Developing pulmonary vascular congestion The above report was generated using voice recognition software. It may contain grammatical, syntax or spelling errors. Electronically signed by: Otto Laboy M.D. 11/04/2018 7:19 AM Dictated: 11/04/18 0719 Transcribed: 11/04/18718 CT OF THE ABDOMEN AND PELVIS WITH CONTRAST CLINICAL HISTORY: Left hip pain and swelling. COMPARISON STUDY: CT of the abdomen and pelvis July 21, 2014. Left hip radiographs March 10, 20182018. TECHNIQUE: Following IV administration of 94 mL of Optiray-320, axial images of the abdomen and pelvis were obtained from the lung bases to the proximal femurs. Images were reviewed in the axial, sagittal, and coronal planes. IV contrast was administered without complication. Automated exposure control was utilized for the study. A dose lowering technique was utilized adhering to the principles of ALARA. Oral contrast was administered. CT DOSE: 300.19 mGy.cm FINDINGS: Emphysema is noted within the lower lungs. There is subpleural right lower lobe opacity. Secretions within bilateral lower lobe bronchi are noted with bronchial wall thickening. Innumerable hepatic cysts are noted. There are several suspected left renal cysts. The spleen, adrenal glands and pancreas are unremarkable. Mild biliary ductal dilatation is likely related to previous cholecystectomy. There is colonic diverticulosis without evidence for acute diverticulitis. No lymphadenopathy is present. There is presacral infiltration. Evaluation of the pelvis is compromised by streak artifact from bilateral hip arthroplasties. No acute fracture is identified. Note is made of moderate asymmetric enlargement of the left gluteal musculature with an associated 9 mm hyperdense focus consistent with active extravasation. There is adjacent infiltration. There is no evidence for a bowel obstruction. Extensive plaque within the abdominal aorta is noted. A probable pancreas divisum is noted. IMPRESSION: 1. Moderate intramuscular hemorrhage within the left gluteal musculature with an associated 9 mm focus of active extravasation. Findings discussed with Dr. Barcenas at time of dictation. Mild presacral infiltration which may be related. 2. No additional sites of hemorrhage identified within the abdomen or pelvis. 3. Numerous hepatic cysts and several left renal cysts. 4. Right lower lobe subpleural opacity which could reflect atelectasis or pneumonia. Severe emphysema. Electronically signed by: Cr Marshall M.D. 11/03/2018 2:33 PM Dictated: 11/03/18 1421 Transcribed: 11/03/18 1421 Hospital Course (1) Hematoma of left hip: Presented on admission with severe pain in her left buttock with INR 5.6 Due to fall while on coumadin with INR supratherapeutic CT abd/pelvis demonstrated Moderate intramuscular hemorrhage within the left gluteal musculature with an associated 9 mm focus of active extravasation. Tachycardic at time of presentation; blood pressures stable. Received IV vit K in the ER, INR 1.3 today Hemoglobin 12.8 on admission, dropped to 10.6-->10.3 today Will continue hold coumadin for now, can resume coumadin after her next follow appointment with PCP on Check CBC on Continue pain control Continue PT/OT fall precaution (2) Supratherapeutic INR: INR 5.6 on admission received Vit K yesterday, INR 1 today Continue to hold coumadin (3) Chronic atrial fibrillation: HR below 100 today Continue digoxin, diltiazem Digoxin 0.6 Coumadin on hold due to left buttock hematoma. Continue monitor closely (4) UTI (urinary tract infection): Elevated WBC UA positive for nitrite/leukocytes/bacteria Urine cx positive for Ecoli Received Rocephin IV for 2 days, then transition to Keflex Will continue Keflex x 5 days (5) Chronic obstructive pulmonary disease: History of exacerbation requiring intubation and mechanical ventilation. Denies any SOB Saturated well on RA Oxygen saturation dropped during physical therapy Had 2 step exercise done today that suggested 2L NC with exertion/ambulation case management was notified for the oxygen supplement (6) CKD (chronic kidney disease), stage III: Creatinine 0.8 today Stable (7) DVT prophylaxis: Warfarin on hold due to Left buttock hematoma SCDs. Ambulate with assistance. (8) Discharge planning issues: Family Medicine follow-up with Dr. Jackson on 11/07 @ 1:15 PM Cardiology follow-up with Otto Cano PA-C. Orthopedics follow-up with Dr. Carcamo. Total Time Total Time Spent Total Time Spent (In Minutes): 35 minutes Total Time Includes: Examination of the Patient, Discharge Planning, Medication Reconciliation, Communication With Other Providers and Other Discharge Plan Discharge Items Patient Disposition: Home - Self-Care Reason For Visit: GLUTEAL HEMATOMA,ELEVATED INR,AF W/RVR Discharge Diagnosis: Hematoma of left hip: UTI (urinary tract infection): Supratherapeutic INR: Chronic atrial fibrillation: Chronic obstructive pulmonary disease: CKD (chronic kidney disease), stage III: Activity: Resume your previous activity Activity Comment: As tolerated Non-emergency contact: Primary Care Provider Call non-emergency contact if: you have any medication questions and your temperature is above 101 Follow-up/Referrals: Durga Gandhi MD [Primary Care Provider] - Diet: Heart Healthy Addtl Attending Provider Instructions: Follow up with primary care provider Dr. Bender on 11/07 @ 1:15 PM continue physical and occupation therapy Follow up with the coumadin clinic Continue oxygen supplement with 2L NC on exertion and ambulation Fall precaution Hold coumadin for today and tomorrow due to left buttock hematoma Resume Coumadin on if OK after seeing your physician Check CBC on to monitor hemoglobin Complete course of antibiotic Pending Studies at Discharge: No Stand-Alone Forms: My [facility] [employer] Medications and DC Order Prescriptions: New cephalexin 500 mg Capsule 500 mg PO BID 5 Days Qty: 10 RF: 0 Continued albuterol sulfate 2.5 mg /3 mL (0.083 %) solution for nebulization 1 vial Inhalation Q4H PRN (Reason: Shortness Of Breath) RF: 0 diltiazem HCl 240 mg capsule,extended release 24hr 240 mg PO QAM RF: 0 tiotropium bromide 18 mcg capsule, w/inhalation device 1 inh Inhalation QPM RF: 0 fluticasone furoate-vilanterol 100-25 mcg/dose blister with device 1 inh Inhalation QAM RF: 0 albuterol sulfate 90 mcg/actuation HFA aerosol inhaler 2 - 4 puff Inhalation Q6H PRN (Reason: Shortness Of Breath) RF: 0 Probiotic 10 billion cell Capsule 1 cap PO BID RF: 0 acetaminophen [Pain Reliever] 500 mg Tablet 1,000 mg PO Q8 PRN (Reason: pain) Qty: 90 RF: 0 sennosides [Senokot] 8.6 mg Tablet 17.2 mg PO HS PRN (Reason: constipation) Qty: 28 RF: 0 oxycodone 5 mg Tablet 5 mg PO Q6H MDD 6 tabs PRN (Reason: pain) Qty: 30 RF: 0 digoxin 125 mcg tablet 62.5 mcg PO HS RF: 0 warfarin 2 mg tablet 2 mg PO QPM Qty: 0 RF: 0 Discharge Orders: Discharge Order (Routine); Ordered 11/05/18 Ordered By: Emily Rodrigez Admission Data Admit Date/Time: 11/03/18 15:41 Attending Provider: Emily Rodrigez Admit Provider: Elliott Yanes Primary Care Provider: Durga Gandhi Other Providers: Elliott Yanes Other Interventions: Discharge Summary Assessment (RN) Last Done: 11/05/18 16:01 DC Date/Time DO NOT enter until pt leaves facility: 11/05/18 16:53
--- NOTE | 2018-11-11 12:04 | Coding Query ---
CODING QUERY To promote full compliance with coding requirements relating to patient care, provider participation is requested in all cases of medical coder uncertainty. Please assist us with the question(s) below: Coding Question(s): There is documentation of Hematoma of left hip due to fall while on Coumadin with INR Supratherapeutic. Please specify below, in your clinical opinion, regarding the cause of the Hematoma. ( x) Hematoma was caused by both the fall as well as due to Coumadin with INR Supratherapeutic ( ) Hematoma was caused by the fall and Not due to Coumadin as well ( ) Hematoma was due to Coumadin with INR Supratherapeutic and there was no trauma Physician's Response(s): Thank you Rosario Kohler Principal Diagnosis: "that condition established after study, to be chiefly responsible for occasioning the admission of the patient to the hospital for care." Co-Existing Principal Diagnosis: "when two or more diagnoses equally meet the criteria for principal diagnosis as determined by the circumstances of admission, diagnostic work up, and/or therapy provided, and the Alphabetic Index, Tabular List, or another coding guideline does not provide sequencing direction, any one of the diagnoses may be sequenced first." "When the physician has documented what appears to be a current diagnosis in the body of the record, but has not included the diagnosis in the final diagnostic statement, the physician should be asked whether the diagnosis should be added." (Source Coding [facility] 2 QTR90. p3-4) [employer]
== END 2018-11-05 16:53 | disposition home or self-care (01) | DRG 813 ==
LOC: ED 10:49 → SUATTDRO 15:41 → 2S 15:41